=== PATIENT | male | born 1985 | race Caucasian/White ===

== ENCOUNTER 2017-06-02 18:06 | Emergency (ER) | payer SELFPAY ==
[2017-06-02 18:07] VITALS: BP 205/102; PULSE 83; RESP 16; TEMP 36.4; O2SAT 97; BMI 50.2
--- NOTE | 2017-06-02 18:40 | US_ITS ---
STUDY: VENOUS DOPPLER ULTRASOUND - RIGHT LOWER EXTREMITY REASON FOR EXAM: Male, 31 years old. Right-sided foot swelling. TECHNIQUE: Ultrasound evaluation of the deep vein system to include templeton-scale imaging and compression was performed. Templeton-scale imaging and Doppler sonographic evaluation, including duplex spectral analysis and qualitative color flow sonography, was performed. COMPARISON: None. FINDINGS: Common Femoral Vein: Normal compression, spontaneity and augmentation. Normal color Doppler. Common Femoral Vein/Greater Saphenous Junction: Normal compression. Femoral Proximal: Normal compression. Femoral Middle: Normal compression, spontaneity and augmentation. Normal color Doppler. Femoral Distal: Normal compression. Popliteal Vein: Normal compression, spontaneity and augmentation. Normal color Doppler. Posterior Tibial Vein: Normal compression. Peroneal Vein: Not well seen. There is no demonstrated deep venous thrombosis. US/Venous Duplex Imag/Limited/Uni IMPRESSION: No sonographic evidence for deep venous thrombosis of the right common femoral, superficial femoral or popliteal veins. Electronically Signed: Roseann Dorado MD at 19:40 EST , Service support ,
--- NOTE | 2017-06-02 19:36 | ED.DCSUM_ITS ---
- ER Visit Summary Date of Service: 06/02/17 Chief Complaint: Right leg swelling History of Present Illness: The patient is a 31 M who states he has a history of DVT but was later told that maybe it was not a DVT. He is not on blood thinners. States for the past 2 days his right leg is been more swollen. He notes discomfort particularly in the foot. Limited range of motion due to the swelling. No recent surgeries. No recent trips. No recent immobilization. No known clotting disorder or mobilization. No shortness of breath or chest pain. Physical Examination: Afebrile vital signs are stable Gen: Well-nourished well-developed morbidly obese Head: Normocephalic atraumatic Eyes: Perrl EOMI ENT: TMs clear no rhinorrhea moist mucous membranes Neck: Supple no lymphadenopathy no JVD nontender CVS: Regular rate rhythm no murmurs normal S1-S2 Respiratory: No distress clear to auscultation bilaterally chest nontender Abdomen: Soft nontender nondistended normal bowel sounds no masses Back: Nontender Extremity: The right leg is swollen. There is 1+ edema. Toes are pink with excellent capillary refill Skin: Normal color no rash Neuro: alert orientated ?3 CN II-XII intact normal strength sensation reflexes gait cerebellar Psych: Normal affect normal mood Test Results: Duplex ultrasound was negative. Emergency Department Course and Treatment: She will be discharged home with instructions for elevation. A brief course of Lasix. He is to follow-up with his doctor. I recommend he try compression hose. Impression: 1. Right leg lymphedema This note was generated with [employer] dictation software. It may contain incorrect words, spelling, and punctuation that were not noted in review of the chart prior to signing ED Disposition - Plan for ED Patient: Disposition: Home or Assisted Living Chief Complaint: Edema Instructions: ED Lymphedema Prescriptions: Furosemide [Lasix] 40 mg PO DAILY #5 tab Referrals: Misha Cueva MD [Primary Care Provider] - 1 Week
[2017-06-02 19:40] VITALS: BP 160/49; PULSE 70; RESP 22; O2SAT 95
--- NOTE | 2017-06-02 19:44 | ED.RN ---
Verbal and written d/c instructions given. All questions answered.
== END 2017-06-02 19:44 | disposition home or self-care (01) ==
PROVIDERS: Emergency Provider Emergency Medicine; Family Provider Family Medicine; PCP Family Medicine
DX: I89.0 Lymphedema, not elsewhere classified (principal); E66.01 Morbid (severe) obesity due to excess calories
CPT/HCPCS: 93971; 99282

== ENCOUNTER 2017-07-08 20:34 | Emergency (ER) | payer MEDICAID, SELFPAY ==
[2017-07-08 20:35] VITALS: BP 144/83; PULSE 97; RESP 17; TEMP 36.5; O2SAT 97; BMI 51.2
[2017-07-08 22:22] VITALS: O2SAT 98
--- NOTE | 2017-07-08 22:55 | RAD_ITS ---
STUDY: X-RAY CHEST REASON FOR EXAM: Male, 32 years old. Cough TECHNIQUE: Frontal and lateral views of the chest COMPARISON: 05/27/2017 FINDINGS: The lungs are clear. There are no pleural effusions. There is no pneumothorax. The heart is normal in size. The visualized osseous structures are within normal limits. RAD/Chest PA and Lateral IMPRESSION: No acute thoracic pathology. Electronically Signed: Eusebio Burgess, at 23:10 EST Tel , Service support ,
--- NOTE | 2017-07-08 23:00 | ED.VISSUMM ---
- ER Visit Summary Date of Service: 07/08/17 Chief Complaint: Cough History of Present Illness: The patient is a 32 M who presents with a cough since March. Patient states he has a history of asthma needs to take Advair but is no longer taking it. He has been using his albuterol MDI 3-4 times per day. He states when he exerts himself he coughs more. No fevers. He states he has had several ER visits for this he has not yet followed up with his family doctor. He states that he called for an appointment 2 weeks ago and could not get in right away. No sputum production. He did a Z-Darryl and fall of last year which she states helped a little bit. Physical Examination: Afebrile vital signs are stable Gen: Well-nourished well-developed morbidly obese Head: Normocephalic atraumatic Eyes: Perrl EOMI ENT: TMs clear no rhinorrhea moist mucous membranes Neck: Supple no lymphadenopathy no JVD nontender CVS: Regular rate rhythm no murmurs normal S1-S2 Respiratory: No distress bilateral wheezing chest nontender Abdomen: Soft nontender nondistended normal bowel sounds no masses Back: Nontender Extremity: Nontender no edema Skin: Normal color no rash Neuro: alert orientated ?3 CN II-XII intact normal strength sensation reflexes gait cerebellar Psych: Normal affect normal mood Test Results: Chest x-ray shows nothing acute chronic changes noted Emergency Department Course and Treatment: I think the patient most likely has ill treated asthma. I will write the patient for Advair. We will start him on burst dose prednisone at first. He will need to follow-up. I made it very clear that his asthma is not managed correctly most likely due to his medical noncompliance. Impression: 1. Chronic cough 2. Asthma This note was generated with [employer] dictation software. It may contain incorrect words, spelling, and punctuation that were not noted in review of the chart prior to signing ED Disposition - Plan for ED Patient: Disposition: Home or Assisted Living Chief Complaint: Cough Instructions: Understanding Asthma, Discharge Instructions for Asthma Prescriptions: Prednisone [Deltasone] 60 mg PO DAILY #15 tab Fluticasone/Salmeterol [Advair 250-50 Diskus] 1 ea IH BID #1 blst.w.[email or web address] Referrals: Misha Cueva MD [Primary Care Provider] - As soon as possible
== END 2017-07-08 23:40 | disposition home or self-care (01) ==
PROVIDERS: Emergency Provider Emergency Medicine; Family Provider Family Medicine; PCP Family Medicine
DX: R05 Cough (principal); J45.909 Unspecified asthma, uncomplicated; E66.01 Morbid (severe) obesity due to excess calories; Z91.14 Patient's other noncompliance with medication regimen; Z87.01 Personal history of pneumonia (recurrent)
CPT/HCPCS: 71046; 99283

== ENCOUNTER 2017-07-11 13:11 | Emergency (ER) | payer MEDICAID, SELFPAY ==
[2017-07-11 13:11] VITALS: BP 153/100; PULSE 111; RESP 18; TEMP 36.9; O2SAT 97; BMI 51.7
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
[2017-07-11 14:03] VITALS: PULSE 102; RESP 24
[2017-07-11] MEDS: Ipratropium/Albuterol Sulfate 3 ML AMPUL.NEB INHALATION (14:03)
[2017-07-11] MEDS: Cephalexin 250 MG Capsule 500 MG PO (14:10)
[2017-07-11] MEDS: Smz/Tmp Ds Tablet 1 TABLET PO (14:10)
--- NOTE | 2017-07-11 14:30 | ED.DEP ---
ED Disposition - Plan for ED Patient: Disposition: Home or Assisted Living Chief Complaint: General Illness Instructions: ED Infec Skin Cellulitis, ED Reactive Airway Disease Prescriptions: Cephalexin [Keflex] 500 mg PO Q6 #40 cap Smz/Tmp Ds [Bactrim Ds] 1 tab PO BID #20 tab Referrals: Misha Cueva MD [Primary Care Provider] - As soon as possible Additional Instructions: Please continue your asthma medications as you have been directed. Please follow-up with your doctor as soon as possible for another evaluation to discuss your asthma and also your recurrent cellulitis of your right leg. Take the antibiotic as prescribed. Your leg is not improving after 48 hours of antibiotics, or if you have any worsening of your condition and any further concerns, please come back to the emergency department for another evaluation follow-up with your doctor soon as possible.
[2017-07-11 14:41] VITALS: BP 157/84; PULSE 79; RESP 15; O2SAT 98
== END 2017-07-11 14:41 | disposition home or self-care (01) ==
PROVIDERS: Emergency Provider Emergency Medicine; Family Provider Family Medicine; PCP Family Medicine
DX: A46 Erysipelas (principal); J45.909 Unspecified asthma, uncomplicated; E66.9 Obesity, unspecified; Z79.52 Long term (current) use of systemic steroids; Z79.51 Long term (current) use of inhaled steroids
CPT/HCPCS: 94640; 99283

== ENCOUNTER 2018-01-12 15:46 | Emergency (ER) | payer OTHER, SELFPAY ==
[2018-01-12 15:48] VITALS: BP 153/97; PULSE 101; RESP 16; TEMP 37.3; O2SAT 96; BMI 50.7
--- NOTE | 2018-01-12 17:05 | RAD_ITS ---
STUDY: X-RAY CHEST REASON FOR EXAM: Male, 32 years old. Chest pain TECHNIQUE: Single PA view of the chest. COMPARISON: Prior study of 07/08/2017 FINDINGS: The lungs are clear and expanded. There are postsurgical changes of the left lower hemithorax. Left costophrenic angle blunting is present. Normal size heart. Normal mediastinum and cuca. Normal visualized pulmonary arteries. Normal visualized aortic arch and descending thoracic aorta. Normal visualized thoracic spine. There are postsurgical changes or posttraumatic changes of the left sixth rib. There is no demonstrated abnormality of the visualized soft tissue structures of the upper abdomen. RAD/Chest 1 View (Portable) IMPRESSION: Postsurgical changes of the left lower hemithorax. Left costophrenic angle blunting is seen which may represent small effusion or pleural reaction. Posttraumatic or postsurgical changes of the left sixth rib. No acute cardiopulmonary disease process is seen. Chest findings are stable in the interval. Electronically Signed: Floyd Morton MD at 17:22 EDT , Service support ,
--- NOTE | 2018-01-12 17:40 | EKG12_ITS ---
Test Reason : CP Blood Pressure : / mmHG Vent. Rate : 103 BPM Atrial Rate : 103 BPM P-R Int : 146 ms QRS Dur : 090 ms QT Int : 344 ms P-R-T Axes : 059 046 019 degrees QTc Int : 450 ms Sinus tachycardia Otherwise normal ECG Confirmed by GINA RAMSEY, UBALDO ([id number]), material expeditor MANDA REYES ([id number]) on 01/14/2018 1:41:16 PM Referred By: JAMES Confirmed By:UBALDO FUENTES MD
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
[2018-01-12 18:47] LABS: Absolute Lymphocyte Count 2.66 X10^3/ul (0.83-4.51); Absolute Neutrophil Count 8.6 X10^3/uL (2.0-7.7); Basophil# 0.03 X10^3/uL; Basophil% 0.2 % (0-1); Eosinophils% 1.6 % (0-5); Hematocrit 46.7 % (40-54); Hemoglobin 15.4 g/dl (13.0-16.5); Lymphocyte # 2.66 X10^3/ul (4.0); Lymphocyte % 21.8 % (19-41); Mean Corpuscular Hgb 28.8 pg (27.0-32.0); Mean Corpuscular Volume 87.3 fL (80-94); Mean Platelet Vol. 9.5 fl (6.2-12.0); Monocyte# 0.68 X10^3/uL; Monocyte% 5.6 % (0-10); Neutrophil # 8.59 X10^3/uL (2.7-7.7); Neutrophil % 70.6 % (47-70); Platelet Count 272 K/mm3 (150-450); RBC Distribution Width CV 13.6 % (11.6-14.6); RBC Distribution Width SD 42.9 fl (35.1-43.9); Red Blood Count 5.35 M/mm3 (4.6-6.2); White Blood Count 12.2 K/mm3 (4.4-11.0)
[2018-01-12 19:00] LABS: POSITIVE COUNT NO; POSITIVE DIFFERENTIAL NO; POSITIVE MORPHOLOGY NO
[2018-01-12 19:03] LABS: Anion Gap 7 (5-15); BUN 14 mg/dL (7-18); BUN/Creat Ratio 18.6 RATIO (10-20); Calcium,Total 9.2 mg/dL (8.5-10.1); Chloride 104 mmol/L (98-107); Creatinine, Serum 0.75 mg/dL (0.70-1.30); EST Glomerular Filtration Rate 129 mL/min (>60); Est Glom Filt Rate - Afr Amer 156 mL/min (>60); Estimated Creatinine Clearance 153.39 ml/min; Glucose 100 mg/dL (74-106); Potassium 3.9 mmol/L (3.5-5.1); Sodium Level 138 mmol/L (136-145)
[2018-01-12 19:14] LABS: D-Dimer Quantitative (DVT/PE) 0.33 FEU/ug/m (0.27-0.49)
[2018-01-12] MEDS: oxyCODONE 5 MG Tablet PO (19:36)
[2018-01-12 19:38] VITALS: BP 152/96; PULSE 82; RESP 18; O2SAT 97
== END 2018-01-12 19:39 | disposition home or self-care (01) ==
PROVIDERS: Emergency Provider Emergency Medicine; Family Provider Family Medicine; PCP Family Medicine
DX: R07.89 Other chest pain (principal); Z86.711 Personal history of pulmonary embolism; Z79.51 Long term (current) use of inhaled steroids
CPT/HCPCS: 71045; 80048; 84484; 85025; 85379; 93005; 99284; J7030; A4216

== ENCOUNTER 2018-04-30 23:46 | Emergency (ER) | payer OTHER, SELFPAY ==
[2018-04-30 23:47] VITALS: BP 133/79; PULSE 99; RESP 15; TEMP 36.6; O2SAT 95; BMI 51.2
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
[2018-05-01 00:46] VITALS: RESP 16
== END 2018-05-01 00:54 | disposition home or self-care (01) ==
PROVIDERS: Emergency Provider Emergency Medicine; Family Provider Nurse Practitioner Family; PCP Nurse Practitioner Family
DX: J20.9 Acute bronchitis, unspecified (principal); E66.9 Obesity, unspecified; Z86.711 Personal history of pulmonary embolism
CPT/HCPCS: 99282

== ENCOUNTER 2018-05-15 03:29 | Emergency (ER) | payer OTHER, SELFPAY ==
[2018-05-15 03:30] VITALS: BP 148/86; PULSE 79; RESP 18; TEMP 36.6; O2SAT 97; BMI 52.1
--- NOTE | 2018-05-15 04:28 | RAD_ITS ---
STUDY: X-RAY CHEST REASON FOR EXAM: Male, 32 years old. Left-sided chest pain along side of ribs. No known injury. TECHNIQUE: PA and lateral views of the chest. COMPARISON: 01/12/2018. 07/08/2017. 04/17/2017 FINDINGS: Stable surgical clips over the left cardiac contour. There are superimposed monitor leads. There is no demonstrated pneumothorax. The lungs are clear and expanded. The pleural thickening/blunting along the right diaphragm and costophrenic angle. Indistinct contour of the 6 rib with deformity is a stable finding. Normal size heart. Normal mediastinum and cuca. Normal visualized pulmonary arteries. Normal visualized aortic arch and descending thoracic aorta. Normal visualized thoracic spine. Normal visualized ribs, clavicles, and shoulders. There is no demonstrated abnormality of the visualized soft tissue structures of the upper abdomen. RAD/Chest PA and Lateral IMPRESSION: Stable pleural disease in the left base, postsurgical changes and indistinct contour of the left sixth rib since 04/2017. No pulmonary edema, congestive heart failure or confluent pneumonia. Electronically Signed: Shiloh Bentley MD at 5:12 EST , Service support ,
--- NOTE | 2018-05-15 04:29 | ED.DCSUM_ITS ---
- ER Visit Summary Date of Service: 05/15/18 Chief Complaint: [] Left-sided chest pain History of Present Illness: The patient is a 32 M patient stated he recently got over bronchitis. This evening around 9 PM he started having left-sided chest pain. It does not hurt when he is resting but when he moves her twists or takes a deep breath he has pain in his left rib area. It is intermittent. Is a sharp pain. He is never had a costochondritis. No home treatment. He recently finished up azithromycin for his bronchitis. Physical Examination: Vital signs reviewed General: Well-nourished well-developed Head: Normocephalic atraumatic Eyes: Pupils equal round and reactive to light extraocular movements intact ENT: TMs clear no hemotympanum no trauma Neck: Nontender full range of motion Cardiovascular: Regular rate rhythm no murmurs normal S1-S2 Respiratory: No distress clear to auscultation bilaterally chest pain to palpation left lateral mid rib cage. No swelling or deformity. Abdomen: Soft nontender nondistended normal bowel sounds no masses Back: Nontender no CVA tenderness Extremities: Nontender active range of motion ?4 extremities no trauma Skin: Normal color no trauma Neuro alert oriented cranial nerves II through XII intact normal strength sensation reflexes Test Results: [] Emergency Department Course and Treatment: [] Given ibuprofen. Chest x-ray obtained and it is negative. He will continue anti-inflammatories. I think this is costochondritis versus pleurisy related. He will follow-up as an outpatient Treatment Plan: [] Disposition: [] Impression: [] Left-sided costochondritis rib pain This note was generated with [employer] dictation software. It may contain incorrect words, spelling, and punctuation that were not noted in review of the chart prior to signing ED Disposition - Plan for ED Patient: Chief Complaint: Chest Other Referrals: Angela Valdes NP-C [Primary Care Provider] -
[2018-05-15] MEDS: Ibuprofen 400 MG Tablet 800 MG PO (04:30)
--- NOTE | 2018-05-15 05:16 | ED.DEP ---
ED Disposition - Plan for ED Patient: Disposition: Home or Assisted Living Chief Complaint: Chest Other Instructions: ED Chest Pain Costochondritis Referrals: Angela Valdes NP-C [Primary Care Provider] -
[2018-05-15 05:23] VITALS: BP 142/69; PULSE 72; RESP 18; O2SAT 96
== END 2018-05-15 05:24 | disposition home or self-care (01) ==
PROVIDERS: Emergency Provider Emergency Medicine; Family Provider Nurse Practitioner Family; PCP Nurse Practitioner Family
DX: M94.0 Chondrocostal junction syndrome [Tietze] (principal); E66.9 Obesity, unspecified; J45.909 Unspecified asthma, uncomplicated; Z79.51 Long term (current) use of inhaled steroids
CPT/HCPCS: 71046; 99283

== ENCOUNTER 2018-06-23 22:41 | Emergency (ER) | payer OTHER, SELFPAY ==
[2018-06-23 22:43] VITALS: BP 166/95; PULSE 97; RESP 26; TEMP 36.3; O2SAT 98; BMI 52.0
--- NOTE | 2018-06-23 23:25 | ED.DCSUM_ITS ---
- ER Visit Summary Date of Service: 06/23/18 Chief Complaint: Chronic cough History of Present Illness: The patient is a 33 M history of asthma patient is a non-smoker. States she has had a chronic cough for the last month. He was seen in the ER written for a Z-Darryl but he thought he was getting better so he never took it. He said the cough is back and now at times he has yellowish to green sputum. Denies any fever. No chest pain. He denies any hemoptysis. No history of DVT or PE. Also states that he has laryngitis. Physical Examination: Well-appearing young male. Vital signs are stable. He is afebrile. His pulse ox is 90% on room air no signs of hypoxia. No distress. HEENT exam posterior pharynx normal. No erythema or exudate. No trouble breathing or swallowing. No stridor or drooling. Neck nontender no lymphadenopathy. Trachea midline and nontender. Lungs dry cough. Limited expiratory few scattered wheezes. No rales or rhonchi. Equal symmetrical. Heart regular rate and rhythm no murmur. Abdomen is soft and nontender. Normal bowel sounds no peritoneal signs. Obese. He is moving all 4 extremities. Neurovascular intact. Calves are nontender without edema. Neurologically is awake and alert with no focal motor deficits. Test Results: None. Discussed with patient I did not think that he needed a chest x-ray I do not hear any signs of pneumonia and he is comfortable with that not being done. Emergency Department Course and Treatment: Patient stated that he got a Dulera inhaler in the past from [facility]. I asked her respiratory therapist and they do not hand those type of inhalers out. I also discussed with the patient option of oral steroids and he states is never really helped him in the past. Treatment Plan: Zithromax Z-Darryl. Inhaler. Disposition: Discharge Impression: Asthmatic bronchitis This note was generated with [employer] dictation software. It may contain incorrect words, spelling, and punctuation that were not noted in review of the chart prior to signing ED Disposition - Plan for ED Patient: Referrals: Angela Valdes NP-C [Primary Care Provider] -
--- NOTE | 2018-06-23 23:25 | ED.DEP ---
ED Disposition - Plan for ED Patient: Disposition: Home or Assisted Living Instructions: ED Bronchitis Asthmatic Prescriptions: Azithromycin [Zithromax Z-Jania] 250 mg PO UD #1 box Mometasone/Formoterol [Dulera 100 Mcg/5 Mcg Inhaler] 0 gm INHALATION 4X/DAY #1 [email or web address] Referrals: Angela Valdes NP-C [Primary Care Provider] - 3-5 Days if not improving Additional Instructions: Inhaler use as needed. Zithromax Z-JANIA Follow-up with your doctor if not improving.
== END 2018-06-23 23:47 | disposition home or self-care (01) ==
PROVIDERS: Emergency Provider Emergency Medicine; Family Provider Nurse Practitioner Family; PCP Nurse Practitioner Family
DX: J45.909 Unspecified asthma, uncomplicated (principal)
CPT/HCPCS: 99282

== ENCOUNTER 2018-07-02 23:09 | Emergency (ER) | payer OTHER, SELFPAY ==
[2018-07-02 23:11] VITALS: BP 156/93; PULSE 95; RESP 20; TEMP 36.7; O2SAT 95; BMI 52.0
--- NOTE | 2018-07-02 23:50 | RAD_ITS ---
HISTORY: COUGH X 1 MONTH, NOW HAVING RIB PAIN. LOST VOICE X 2 WEEKS EXAM: XR Chest 2 Views: COMPARISON: None FINDINGS: # of images incl. paperwork: 2 LINES/DEVICES: None. LUNGS: No acute interval change. Persistent scarring and atelectasis in the left lung base. No apparent pneumothorax or pleural effusion. MEDIASTINUM AND CARDIOVASCULAR STRUCTURES: Cardiac silhouette not enlarged. Central airways and mediastinal contour are unremarkable. BONES AND SOFT TISSUES: Chronic deformity left sixth rib unchanged. RAD/Chest PA and Lateral IMPRESSION: No radiographic evidence of acute cardiopulmonary disease. at 0022 Reported and signed by: Floyd Lacey MD Electronically Signed: Floyd Lacey, at 0:21 EST Tel , Service support ,
--- NOTE | 2018-07-02 23:50 | ED.VISSUMM ---
- ER Visit Summary Date of Service: 07/02/18 Chief Complaint: [] Cough History of Present Illness: The patient is a 33 M with cough for the last month and a half. Gradual onset intermittent. Current severity is mild. Hurts to cough with pain in his left ribs with coughing fits. He stated these had a chronic cough for a long period of time. He lost his voice a week ago. No home treatment. Stated cough medicines do not work including Mucinex Tessalon Perles liquid honey Robitussin. He was seen on the of this month and given a Z-Darryl. He did not get relief with that. Physical Examination: [] Vital signs reviewed General: Well-nourished well-developed Head: Normocephalic atraumatic Eyes: Pupils equal round and reactive to light extraocular movements intact ENT: TMs clear no hemotympanum no trauma Neck: Nontender full range of motion Cardiovascular: Regular rate rhythm no murmurs normal S1-S2 Respiratory: No distress clear to auscultation bilaterally chest nontender Abdomen: Soft nontender nondistended normal bowel sounds no masses Back: Nontender no CVA tenderness Extremities: Nontender active range of motion ?4 extremities no trauma Skin: Normal color no trauma Neuro alert oriented cranial nerves II through XII intact normal strength sensation reflexes Test Results: [] Emergency Department Course and Treatment: [] Patient given ibuprofen for his sore ribs. Chest x-ray obtained. Negative. At this time I think the patient likely just has a viral cough and laryngitis. He probably has an intercostal muscle strain from coughing. Instructed to use [id number]. Treatment Plan: [] Disposition: [] Impression: [] Cough-chronic This note was generated with [employer] software. It may contain incorrect words, spelling, and punctuation that were not noted in review of the chart prior to signing ED Disposition - Plan for ED Patient: Referrals: Angela Valdes NP-C [Primary Care Provider] -
[2018-07-03] MEDS: Ibuprofen 600 MG Tablet PO (00:11)
--- NOTE | 2018-07-03 00:29 | ED.DEP ---
ED Disposition - Plan for ED Patient: Disposition: Home or Assisted Living Instructions: ED URI Viral Referrals: Angela Valdes NP-C [Primary Care Provider] -
== END 2018-07-03 00:43 | disposition home or self-care (01) ==
PROVIDERS: Emergency Provider Emergency Medicine; Family Provider Nurse Practitioner Family; PCP Nurse Practitioner Family
DX: R05 Cough (principal)
CPT/HCPCS: 71046; 99283

== ENCOUNTER 2018-11-14 06:32 | Emergency (ER) | payer OTHER, SELFPAY ==
[2018-11-14 06:33] VITALS: BP 148/106; PULSE 82; RESP 18; TEMP 36.5; O2SAT 97; BMI 53.3
--- NOTE | 2018-11-14 07:08 | VDLE_ITS ---
Reason For Study: Swelling RIGHT LEFT GSV is normal. CFV is compressible, spontaneous, phasic, CFV is compressible, spontaneous, phasic, competent, and demonstrates normal competent and demonstrates normal augmentation. augmentation. FV is compressible, spontaneous, phasic, competent and demonstrates normal augmentation. T/P Trunk is compressible. PTV is compressible. RT PerV is compressible. Rt PopV is partially compressible with bright intraluminal echoes consistent with chronic DVT. Procedure Exam performed portable in ED. A preliminary report was called and/or faxed to Dr. Burton. Interpretation Summary Partially compressible right popliteal vein with bright intraluminal echoes consistent with chronic DVT. No evidence for acute deep venous thrombosis right lower extremity. Patent and compressible right great saphenous vein Patent and compressible left common femoral vein Ordering Physician: Mata Burton Referring Physician: Angela Valdes Performed By: Joan Li, JEROME, RVT
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
[2018-11-14 10:05] VITALS: PULSE 80; RESP 16
== END 2018-11-14 10:06 | disposition home or self-care (01) ==
PROVIDERS: Emergency Provider Emergency Medicine; Family Provider Nurse Practitioner Family; PCP Nurse Practitioner Family
DX: R60.0 Localized edema (principal); E66.9 Obesity, unspecified
CPT/HCPCS: 93971; 99282

== ENCOUNTER 2019-02-07 23:02 | Emergency (ER) | payer OTHER, SELFPAY ==
[2019-02-07 23:03] VITALS: BP 135/82; PULSE 87; RESP 15; TEMP 36.9; O2SAT 99; BMI 50.2
--- NOTE | 2019-02-07 23:24 | ED.VISSUMM ---
- ER Visit Summary Date of Service: 02/07/19 Chief Complaint: Right ankle pain and swelling History of Present Illness: The patient is a 33 M who presents with right ankle pain and swelling that began today. Patient states the pain is gradually gotten worse throughout the day. Patient denies any trauma or injury. Patient states the pain is been constant. Patient describes the pain as a tingling sensation. Patient states nothing makes the pain better or worse. Patient does admit to some tingling but denies any weakness or other paresthesias. Patient is concerned over possible blood clot. Patient states he has had a history of blood clots in the past but is not currently on any anticoagulant medications. Physical Examination: Vital signs are stable. Patient is afebrile. Patient is in no acute distress. Oral mucosa is pink and moist. Neck is supple. Trachea is midline. There is no JVD noted. Musculoskeletal exam reveals tenderness over the right ankle. There is trace edema. There is slight calf tenderness. There is no tenderness in the popliteal area or thigh. Pedal pulses are equal bilaterally. Sensation was intact to light touch in all digits. Capillary refill is less than 2 seconds in all digits. Test Results: Due to the patient is concerned over possible DVT, PT with INR and d-dimer were obtained and were normal. X-rays of the right ankle were ordered but the patient refused. Emergency Department Course and Treatment: Patient was advised of his lab results. Patient was instructed to keep the right ankle elevated. Patient was instructed to follow-up with his primary care physician in 3 to 5 days. Patient understood and was agreeable with the plan. All questions were answered. Disposition: Discharge home Impression: 1. Right ankle pain This note was generated with [employer] dictation software. It may contain incorrect words, spelling, and punctuation that were not noted in review of the chart prior to signing ED Disposition - Plan for ED Patient: Disposition: Home or Assisted Living Diagnosis: Right ankle pain Instructions: Arthralgia Referrals: Angela Valdes NP-C [Primary Care Provider] - 5-7 Days
[2019-02-07 23:48] LABS: International Normalized Ratio 1.1; Prothrombin Time (Protime)PT. 13.5 SECONDS (11.7-14.9)
[2019-02-07 23:52] LABS: D-Dimer Quantitative (DVT/PE) 0.45 FEU/ug/m (0.27-0.49)
[2019-02-08 00:55] VITALS: RESP 16
[2019-02-08 01:17] VITALS: BP 130/80; PULSE 78; RESP 16; O2SAT 98
== END 2019-02-08 00:55 | disposition home or self-care (01) ==
LOC: ED 23:36
PROVIDERS: Emergency Provider Emergency Medicine; Family Provider Nurse Practitioner Family; PCP Nurse Practitioner Family
DX: M25.571 Pain in right ankle and joints of right foot (principal); Z86.718 Personal history of other venous thrombosis and embolism
CPT/HCPCS: 36415; 85379; 85610; 99283

== ENCOUNTER 2019-02-18 11:03 | Emergency (ER) | payer OTHER, SELFPAY ==
[2019-02-18 11:04] VITALS: BP 209/92; PULSE 101; RESP 20; TEMP 36.7; O2SAT 93; BMI 52.8
--- NOTE | 2019-02-18 11:20 | CT_ITS ---
STUDY: CT ABDOMEN AND PELVIS WITHOUT CONTRAST REASON FOR EXAM: Male, 33 years old. Right sided abdomen pain, hematuria. Hx stones.. RADIATION DOSAGE (If Supplied By Facility): CTDIvol = ( 34.45 ) mGy, DLP = ( 1936.81 ) mGycm TECHNIQUE: Transaxial images were obtained from the dome of the diaphragm to the symphysis pubis without oral contrast, and without intravenous contrast. Sagittal and coronal images were reconstructed. Individualized dose optimization techniques were used for this CT. COMPARISON: November 10, 2013 FINDINGS: There is a left lung base consolidation/atelectasis. Left lung consolidation There is liver enlargement with decreased attenuation of the liver consistent with steatosis. Normal gallbladder and extrahepatic biliary system. There is mild enlargement of the spleen at 13 cm. Normal pancreas. Normal bilateral adrenal glands. Normal right kidney. Again noted is a 2 cm left kidney cyst. Normal visualized stomach. Normal small intestine. Normal colon. The appendix is visualized and appears normal. Normal abdominal aorta. Normal inferior vena cava. Normal retroperitoneum. Normal urinary bladder. Normal abdominal wall. There are diffuse degenerative changes of the visualized lumbar spine. CT/Abdomen/Pelvis without Cont IMPRESSION: Left lung consolidation/atelectasis. Further evaluation with CT of the chest is recommended. Hepatosplenomegaly. Electronically Signed: Dmitriy Whitfield MD at 13:05 EDT Tel , Service support ,
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
[2019-02-18 11:36] LABS: Bacteria 0 SEEN /hpf (None Seen); Mucous, Urine 0 SEEN /hpf (<or=2+); Squamous Epithelial Cells - UA 0 SEEN /hpf (0-5); White Blood Cells 0 SEEN /hpf (0-5)
[2019-02-18 11:41] LABS: Color, Urine Brown (Yellow); Glucose, Dipstick Normal (Normal); Ketone-Dipstick 5 mg/dl (Negative); Leukocyte Esterase-Dipstick 25 /ul (Negative); Nitrite-Dipstick Negative (Negative); Occult Blood-Urine 250 /ul (Negative); Protein-Dipstick 100 mg/dl (Negative); Specific Gravity, Urine 1.025 (1.002-1.030); Urine Bilirubin Dipstick Negative (Negative); Urine Clarity Turbid (Clear); Urine Urobilinogen Normal (Normal); Urine pH 6.5 (5.0 - 8.0)
[2019-02-18] MEDS: Ketorolac 30 MG/ML Syringe 15 MG IV (11:41)
[2019-02-18] MEDS: 0.9% Normal Saline 1,000 ML 250 ML IV (11:41)
[2019-02-18] MEDS: Ondansetron 4 MG/2 ML Vial IV (11:41)
[2019-02-18 11:42] LABS: Absolute Lymphocyte Count 2.43 X10^3/uL (0.83-4.51); Absolute Neutrophil Count 7.3 X10^3/uL (2.0-7.7); Basophil# 0.08 X10^3/uL; Basophil% 0.8 % (0-1); Eosinophil# 0.21 X10^3/uL; Hematocrit 50.7 % (40-54); Hemoglobin 16.4 g/dL (13.0-16.5); Lymphocyte # 2.43 X10^3/ul (4.0); Lymphocyte % 22.9 % (19-41); Mean Corp Hgb Conc 32.3 g/dL (32-36); Mean Corpuscular Hgb 28.6 pg (27.0-32.0); Mean Corpuscular Volume 88.3 fL (80-94); Mean Platelet Vol. 9.1 fl (6.2-12.0); Monocyte# 0.54 X10^3/uL; Monocyte% 5.1 % (0-10); NRBC Flagged by Analyzer 0 % (0-5); Neutrophil # 7.34 X10^3/uL (2.7-7.7); Neutrophil % 68.9 % (47-70); Platelet Count 314 K/mm3 (150-450); RBC Distribution Width CV 13.2 % (11.6-14.6); RBC Distribution Width SD 42.6 fl (35.1-43.9); Red Blood Count 5.74 M/mm3 (4.6-6.2); White Blood Count 10.6 K/mm3 (4.4-11.0)
[2019-02-18 11:50] LABS: Red Blood Cells-Urine > 100 SEEN /hpf (0-5)
[2019-02-18 11:51] LABS: Amorphous Sediment 4+
[2019-02-18 11:55] LABS: Anion Gap 6 (5-15); BUN 16 mg/dL (7-18); BUN/Creat Ratio 17.3 RATIO (10-20); Calcium,Total 9.4 mg/dL (8.5-10.1); Chloride 104 mmol/L (98-107); Creatinine, Serum 0.92 mg/dL (0.70-1.30); EST Glomerular Filtration Rate 101 mL/min (>60); Est Glom Filt Rate - Afr Amer 122 mL/min (>60); Estimated Creatinine Clearance 123.91 ml/min; Glucose 126 mg/dL (74-106); Potassium 3.8 mmol/L (3.5-5.1); Sodium Level 139 mmol/L (136-145)
[2019-02-18 13:03] VITALS: BP 152/90; PULSE 91; RESP 18; O2SAT 99
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
[2019-02-18 15:11] VITALS: BP 163/81; PULSE 83; RESP 16; O2SAT 95
== END 2019-02-18 15:11 | disposition home or self-care (01) ==
PROVIDERS: Emergency Provider Emergency Medicine; Family Provider Nurse Practitioner Family; PCP Nurse Practitioner Family
DX: R31.0 Gross hematuria (principal); N28.1 Cyst of kidney, acquired; R91.8 Other nonspecific abnormal finding of lung field; J45.909 Unspecified asthma, uncomplicated; E66.01 Morbid (severe) obesity due to excess calories; Z68.41 Body mass index [BMI] 40.0-44.9, adult; Z86.711 Personal history of pulmonary embolism
CPT/HCPCS: 71260; 74176; 80048; 81001; 85025; 96361; 96374; 96375; 99283; J7030; Q9967; A4216; J2405

== ENCOUNTER 2019-02-19 05:07 | Emergency (ER) | payer OTHER, SELFPAY ==
[2019-02-18 11:04] VITALS: BMI 52.8
[2019-02-19 05:08] VITALS: BP 162/83; PULSE 90; RESP 18; TEMP 36.5; O2SAT 97; BMI 53.4
[2019-02-19] MEDS: Ketorolac 30 MG/ML Syringe IV (05:25)
--- NOTE | 2019-02-19 05:39 | ED.DCSUM_ITS ---
- ER Visit Summary Date of Service: 02/19/19 Chief Complaint: Abdominal pain History of Present Illness: The patient is a 33 M who presents the emergency department continued right lower abdominal pain. Patient states that he was seen yesterday beginning around 11:30 in the morning. He came to the emergency department noting hematuria in the abdominal pain. His CT of his abdomen pelvis that demonstrated a left renal cyst 2 cm but no stone and a normal appendix. I there was concern raised about a potential pulmonary issue and a CT of the chest was ordered which showed scarring. Patient states that he was in the impression that he had a kidney stone. He states he was discharged without any pain medication (discharge note does explain nonprescription pain treatment options). 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 He notes he had some loose bowel movement but did have some continued blood in the urine. He notes the pain in the right lower quadrant was better at the start of his shift and seems worse. He has noted about a month ago he had had dysuria but it resolved. He notes that he has to urinate very frequently at work 6-8 times a shift. Tells me that he holds his urine as long as possible to keep working. He tells me he has a working diagnosis of prediabetes. Physical Examination: Afebrile vital signs are stable Gen: Well-nourished well-developed morbid obesity Head: Normocephalic atraumatic Eyes: Perrl EOMI ENT: TMs clear no rhinorrhea moist mucous membranes Neck: Supple no lymphadenopathy no JVD nontender CVS: Regular rate rhythm no murmurs normal S1-S2 Respiratory: No distress clear to auscultation bilaterally chest nontender Abdomen: Soft tender palpation just inferiorly to his pannus line no guarding or rebound r nondistended normal bowel sounds no masses Back: Nontender Extremity: Nontender no edema Skin: Normal color no rash Neuro: alert orientated ?3 CN II-XII intact normal strength Psych: Normal affect normal mood Test Results: White count 10.9 (yesterday was was 10.6) blood sugar 143. Urinalysis positive leukocyte esterase positive nitrates some bacteria some bright blood cells. Emergency Department Course and Treatment: Urine will be sent for culture. I gave the patient a dose of Toradol is more comfortable. On Tessy put him on Cipro. I also ordered hemoglobin A1c that I will have him speak to his doctor about as I do not have the results back now. Return if worsening or concerns Impression: 1. Acute urinary tract infection 2. Elevated blood sugar This note was generated with [employer] dictation software. It may contain incorrect words, spelling, and punctuation that were not noted in review of the chart prior to signing ED Disposition - Plan for ED Patient: Disposition: Home or Assisted Living Instructions: Understanding Urinary Tract Infections (UTIs) Prescriptions: Ciprofloxacin [Cipro] 500 mg PO BID #14 tab Prescription Printed Hydrocodone Bitart/Apap 5-325 [[place] 5MG-325MG] 1 tab PO Q6H PRN PRN 3 Days #10 tab PRN Reason: Pain Prescription Printed Referrals: Angela Valdes NP-C [Primary Care Provider] - 3-5 Days if not improving
[2019-02-19 05:52] LABS: Squamous Epithelial Cells - UA 0 SEEN /hpf (0-5)
[2019-02-19 05:53] LABS: Absolute Lymphocyte Count 2.17 X10^3/uL (0.83-4.51); Absolute Neutrophil Count 7.8 X10^3/uL (2.0-7.7); Basophil# 0.05 X10^3/uL; Basophil% 0.5 % (0-1); Eosinophil# 0.22 X10^3/uL; Hematocrit 45.3 % (40-54); Hemoglobin 14.9 g/dL (13.0-16.5); Lymphocyte # 2.17 X10^3/ul (4.0); Lymphocyte % 19.9 % (19-41); Mean Corp Hgb Conc 32.9 g/dL (32-36); Mean Corpuscular Hgb 28.7 pg (27.0-32.0); Mean Corpuscular Volume 87.1 fL (80-94); Mean Platelet Vol. 9.2 fl (6.2-12.0); Monocyte# 0.63 X10^3/uL; Monocyte% 5.8 % (0-10); NRBC Flagged by Analyzer 0 % (0-5); Neutrophil # 7.79 X10^3/uL (2.7-7.7); Neutrophil % 71.4 % (47-70); Platelet Count 279 K/mm3 (150-450); RBC Distribution Width CV 13.1 % (11.6-14.6); RBC Distribution Width SD 41.4 fl (35.1-43.9); White Blood Count 10.9 K/mm3 (4.4-11.0)
[2019-02-19 06:01] LABS: Color, Urine Brown (Yellow); Glucose, Dipstick Normal (Normal); Ketone-Dipstick 5 mg/dl (Negative); Leukocyte Esterase-Dipstick 100 /ul (Negative); Nitrite-Dipstick Positive (Negative); Occult Blood-Urine 250 /ul (Negative); Protein-Dipstick 100 mg/dl (Negative); Urine Clarity Turbid (Clear); Urine Urobilinogen 1 mg/dl (Normal)
[2019-02-19 06:02] LABS: Urine Bilirubin Dipstick 1 mg/dL (Negative)
[2019-02-19 06:07] LABS: AST(SGOT) 25 U/L (15-37); Alanine Aminotransfer ALT/SGPT 51 U/L (16-61); Albumin, Serum 3.4 g/dL (3.2-5.0); Alkaline Phosphatase 77 U/L (45-117); Anion Gap 7 (5-15); BUN 20 mg/dL (7-18); BUN/Creat Ratio 23.1 RATIO (10-20); Calcium,Total 8.7 mg/dL (8.5-10.1); Chloride 105 mmol/L (98-107); Creatinine, Serum 0.87 mg/dL (0.70-1.30); EST Glomerular Filtration Rate 109 mL/min (>60); Est Glom Filt Rate - Afr Amer 132 mL/min (>60); Estimated Creatinine Clearance 131.03 ml/min; Globulin 3.5 g/dL (2.2-4.2); Glucose 143 mg/dL (74-106); Potassium 3.8 mmol/L (3.5-5.1); Protein, Total 6.9 g/dL (6.4-8.2); Sodium Level 138 mmol/L (136-145)
[2019-02-19 06:15] LABS: Amorphous Sediment 3+; Red Blood Cells-Urine 5-10 SEEN /hpf (0-5)
[2019-02-19 06:16] LABS: Bacteria RARE /hpf (None Seen); Mucous, Urine 1+ /hpf (<or=2+); White Blood Cells 0-5 SEEN /hpf (0-5)
[2019-02-19 06:49] VITALS: PULSE 85; TEMP -8.8; TEMP 16
[2019-02-19] MEDS: Ciprofloxacin 500 MG Tablet PO (06:49)
[2019-02-19 08:14] LABS: Hemoglobin A1c 5.9 % (4.2-6.3)
== END 2019-02-19 06:52 | disposition home or self-care (01) ==
PROVIDERS: Emergency Provider Emergency Medicine; Family Provider Nurse Practitioner Family; PCP Nurse Practitioner Family
DX: N39.0 Urinary tract infection, site not specified (principal); R73.9 Hyperglycemia, unspecified; E66.01 Morbid (severe) obesity due to excess calories; J45.909 Unspecified asthma, uncomplicated; Z86.711 Personal history of pulmonary embolism
CPT/HCPCS: 80053; 81001; 83036; 85025; 87077; 87086; 87088; 96374; 99284; A4216

== ENCOUNTER 2019-04-19 10:44 | Emergency (ER) | payer OTHER, SELFPAY ==
[2019-04-19 10:46] VITALS: BP 143/79; PULSE 97; RESP 17; TEMP 36.9; O2SAT 98; BMI 53.2
--- NOTE | 2019-04-19 11:20 | RAD_ITS ---
STUDY: X-RAY CHEST REASON FOR EXAM: Male, 33 years old. 4 day history of cough and chest congestion. TECHNIQUE: PA and lateral views of the chest. COMPARISON: Comparison is made with prior study dated July 02, 2018. FINDINGS: Metallic sutures are seen overlying the left lung base. Stable pleural parenchymal changes at the left lung base. The right lung is clear. There is no demonstrated pleural abnormality. Normal size heart. Normal mediastinum and cuca. Normal visualized pulmonary arteries. Normal visualized aortic arch and descending thoracic aorta. Normal visualized thoracic spine. Normal visualized ribs, clavicles, and shoulders. There is no demonstrated abnormality of the visualized soft tissue structures of the upper abdomen. RAD/Chest PA and Lateral IMPRESSION: Stable pleural parenchymal changes at the left lung base. Electronically Signed: Shun Perez, at 11:39 EST , Service support ,
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
== END 2019-04-19 12:18 | disposition home or self-care (01) ==
LOC: ED 12:09
PROVIDERS: Emergency Provider Emergency Medicine; Family Provider Nurse Practitioner Family; PCP Nurse Practitioner Family
DX: J06.9 Acute upper respiratory infection, unspecified (principal)
CPT/HCPCS: 71046; 99282

== ENCOUNTER 2019-07-20 03:04 | Emergency (ER) | payer OTHER, SELFPAY ==
[2019-07-20 03:05] VITALS: BP 158/102; PULSE 123; RESP 18; TEMP 37.3; O2SAT 97; BMI 52.2
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
[2019-07-20] MEDS: Ketorolac 60 MG/2 ML Vial IM (03:19)
[2019-07-20 03:52] VITALS: BP 146/98; PULSE 104; RESP 20; O2SAT 96
[2019-07-20] MEDS: dexAMETHasone 10 MG/ML Vial PO.IVFORM (03:53)
[2019-07-20 03:55] VITALS: BP 146/98; PULSE 104; RESP 20; TEMP 37.3; O2SAT 96
--- NOTE | 2019-07-21 11:27 | ED.RN ---
PATIENT MADE AWARE OF GAS CULTURE. AZITHROMYCIN 500 MG DAILY X5 DAYS CALLED INTO [facility]
== END 2019-07-20 03:55 | disposition home or self-care (01) ==
PROVIDERS: Emergency Provider Emergency Medicine; PCP Nurse Practitioner Family
DX: J03.90 Acute tonsillitis, unspecified (principal); J45.909 Unspecified asthma, uncomplicated; E66.01 Morbid (severe) obesity due to excess calories; Z68.41 Body mass index [BMI] 40.0-44.9, adult
CPT/HCPCS: 87077; 87880; 96372; 99284

== ENCOUNTER → 2020-08-19 14:05 | Outpatient (CLI) | payer SELFPAY ==
[2020-08-19 12:55] VITALS: BMI 53.9
== END ==
PROVIDERS: PCP Nurse Practitioner Family; Referring Provider Nurse Practitioner Family; Visit Provider Nurse Practitioner Family
DX: Z11.52 Encounter for screening for COVID-19 (principal)
CPT/HCPCS: 87635; U0002

== ENCOUNTER 2020-09-28 11:52 | Emergency (ER) | payer OTHER, SELFPAY ==
[2020-09-08 10:06] VITALS: BMI 53.9
[2020-09-28 11:53] VITALS: BP 144/80; PULSE 106; RESP 15; TEMP 36.4; O2SAT 96; BMI 54.3
--- NOTE | 2020-09-28 12:52 | EX.ED.DYSGE1 ---
HPI History of Present Illness Chief Complaint: Lower Extremity Injury Narrative Narrative: 35-year-old male presenting with left foot pain. He states that on the dorsum and lateral aspect of his foot. He denies any trauma. He states that it is worse after using it at work. He has been new work boots which initially helped the pain and now is having more pain. He has been taking Aleve which does seem to work for his pain. He denies numbness or tingling. PFSH PFSH Medical History Asthma Home Medications naproxen [Naprosyn] 500 mg PO BID PRN #30 tab 09/28/20 [Rx Last Taken Unknown] Allergy/AdvReac Type Severity Reaction Status Date / Time hydrocodone [From [place]] AdvReac Upset Verified 09/28/20 11:54 Stomach Family History Other Diabetes Obesity Social History Smoking Status: Never smoker Smokeless tobacco user: chewing tobacco ROS ROS ED Constitutional Constitutional ED: Denies chills, fever(s) or sweats Eyes Eyes: Denies blurry vision or change in vision ENT ENT ED: Denies ear pain, rhinorrhea or sore throat Cardiovascular Cardiovascular: Denies chest pain, palpitations or racing heartbeat Respiratory/Chest Respiratory/Chest: Denies cough, dyspnea or sputum Gastrointestinal Gastrointestinal: Denies abdominal pain, constipation, diarrhea or vomiting Genitourinary Genitourinary ED: Denies dysuria, hematuria or urinary frequency Musculoskeletal Musculoskeletal: Reports other Details: Left foot pain ; Denies arthralgias, myalgias or neck pain Integumentary Denies abscess, Abrasions or rash Neurologic Neurologic: Denies headache(s), paresthesias or weakness Psychiatric Psychiatric: Denies anxiety, depression, suicidal ideation or suicidal thoughts Endocrine Endocrinology: Denies polydipsia or polyuria EXAM Physical Exam Const Vital Signs: 09/28/20 11:53 Temperature 97.5 F L Temperature Source Temporal Pulse Rate 106 H Respiratory Rate 15 Blood Pressure 144/80 H Blood Pressure Mean 101 Pulse Ox 96 Oxygen Delivery Method Room Air Positive well nourished General Appearance ED: NAD HEENT Negative for trauma or tenderness Eyes PERRL and EOMs intact bilaterally Resp normal respiratory effort and clear to auscultation bilaterally Cardio regular rate and regular rhythm Extremity Extremity Narrative: Mild tenderness to palpation to the dorsal lateral aspect of the left foot. There is no deformity. DP/PT +2/4. Strength and motor sensation intact. No bony tenderness. Neuro oriented x3 Sensorium / Orientation: alert Psych mental status grossly normal Skin no rashes or lesions noted and no wounds MDM MDM MDM Narrative Medical decision making narrative: Patient presenting with left foot pain which is nontraumatic. He does have some mild tenderness to the lateral aspect of his foot. He was offered x-ray however he does not believe his foot is broken. Clinically I do not believe he needs an x-ray. Patient will be given a prescription prescription for Naprosyn and follow-up with podiatry. He is amenable to this plan. He is can return precautions. Impression: 1. Left foot tendinitis Discharge Plan Triage Chief Complaint: Lower Extremity Injury ED Provider: Chun Jimenes Dx/Rx/DC Orders Instructions: Treating Tendonitis of the Foot Prescriptions: New naproxen [Naprosyn] 500 mg tablet 500 mg PO BID PRN (Reason: pain) Qty: 30 RF: 0 Stand Alone Forms: ED Work / School Excuse Primary Care Provider: Care Physician,No Primary Referrals: Kya Qureshi DPM [STAFF PHYSICIAN] - Care Physician,No Primary [Primary Care Provider] - Disposition Disposition: Home, self care Discharge Date/Time: 09/28/20 13:09
== END 2020-09-28 13:09 | disposition home or self-care (01) ==
PROVIDERS: Emergency Provider Student in an Organized Health Care Education/Training Program
DX: M77.52 Other enthesopathy of left foot and ankle (principal)
CPT/HCPCS: 99282

== ENCOUNTER 2020-11-19 18:42 | Emergency (ER) | payer OTHER, SELFPAY ==
[2020-11-19 18:43] VITALS: BP 159/99; PULSE 96; RESP 18; TEMP 36; O2SAT 98; BMI 54.9
[2020-11-19 20:01] LABS: Absolute Lymphocyte Count 2.42 X10^3/uL (0.83-4.51); Absolute Neutrophil Count 9.6 X10^3/uL (2.0-7.7); Basophil# 0.06 X10^3/uL; Basophil% 0.4 % (0-1); Eosinophils% 1.5 % (0-5); Hematocrit 47.1 % (40-54); Hemoglobin 15.1 g/dL (13.0-16.5); Lymphocyte # 2.42 X10^3/ul (0.83-4.51); Mean Corp Hgb Conc 32.1 g/dL (32-36); Mean Corpuscular Hgb 28.5 pg (27.0-32.0); Mean Corpuscular Volume 88.9 fL (80-94); Monocyte# 1.17 X10^3/uL; Monocyte% 8.7 % (0-10); NRBC Flagged by Analyzer 0 % (0-5); Neutrophil # 9.56 X10^3/uL (2.7-7.7); Platelet Count 320 K/mm3 (150-450); RBC Distribution Width CV 14.1 % (11.6-14.6); RBC Distribution Width SD 45.3 fl (35.1-43.9); White Blood Count 13.5 K/mm3 (4.4-11.0)
[2020-11-19 20:26] LABS: Anion Gap 5 (5-15); BUN 11 mg/dL (7-18); BUN/Creat Ratio 12.1 RATIO (10-20); Calcium,Total 8.8 mg/dL (8.5-10.1); Chloride 104 mmol/L (98-107); Creatinine, Serum 0.91 mg/dL (0.70-1.30); EST Glomerular Filtration Rate 102 mL/min (>60); Est Glom Filt Rate - Afr Amer 124 mL/min (>60); Estimated Creatinine Clearance 122.97 ml/min; Glucose 111 mg/dL (74-106); Potassium 3.8 mmol/L (3.5-5.1); Sodium Level 139 mmol/L (136-145)
[2020-11-19 20:30] LABS: Lactic Acid 1.5 mmol/L (0.4-1.9)
--- NOTE | 2020-11-19 22:23 | EDS_ITS ---
HPI History of Present Illness Chief Complaint: Cellulitis Informant: patient Onset/Context/Timing Current Severity: Moderate Narrative Narrative: Patient presents with cellulitis. He states over the last 2 or so da ys he started to get redness of his right leg. He has had of feverish feeling but highest temperature was 99.9. He has had some mild diffuse body aches. He states this is all typical with his cellulitis. He has had this probably 6 or more times in the right leg. He has no diabetes or no known cause or reason for recurrent cellulitis. He has been treated with multiple antibiotics without problems. He has required admission sometimes. He states sometimes his white count goes up over 30,000 with these. Antibiotics get them better. Nothing makes it worse. Prior similar symptoms: Yes PFSH PFSH Medical History Asthma Home Medications naproxen [Naprosyn] 500 mg PO BID PRN #30 tab 09/28/20 [Rx Last Taken Unknown] amoxicillin-pot clavulanate [Augmentin] 1 tab PO Q12H #20 tab 11/19/20 [Rx Last Taken Unknown] Allergy/AdvReac Type Severity Reaction Status Date / Time hydrocodone [From [place]] AdvReac Upset Verified 11/19/20 18:45 Stomach Family History Other Diabetes Obesity Social History Smoking Status: Never smoker Smokeless tobacco user: chewing tobacco ROS ROS ED Constitutional Constitutional ED: Reports fever(s) and subjective; Denies sweats Eyes Eyes: Denies blurry vision ENT ENT ED: Denies rhinorrhea Cardiovascular Cardiovascular: Denies chest pain Respiratory/Chest Respiratory/Chest: Denies cough or dyspnea Gastrointestinal Gastrointestinal: Denies abdominal pain, nausea or vomiting Genitourinary Genitourinary ED: Denies dysuria Musculoskeletal Musculoskeletal: Reports myalgias; Denies arthralgias Integumentary Reports rash Neurologic Neurologic: Denies headache(s) Psychiatric Psychiatric: Denies depression Endocrine Endocrinology: Denies polydipsia or polyuria EXAM Physical Exam Const Vital Signs: 11/19/20 18:43 11/19/20 18:56 Temperature 96.8 F L Temperature Source Temporal Pulse Rate 96 Respiratory Rate 18 Respiratory Effort Normal Non-Labored Respiratory Pattern Normal Blood Pressure 159/99 H Blood Pressure Mean 119 Pulse Ox 98 Oxygen Delivery Method Room Air Positive well nourished, well developed and obese General Appearance ED: well developed and NAD; Negative for cyanotic or diaphoretic Nutritional Appearance: obese HEENT Negative for trauma Eyes PERRL Neck supple Chest Wall inspection of chest normal Resp normal respiratory effort and clear to auscultation bilaterally Auscultation: Negative for wheezes Cardio regular rate and regular rhythm GI normal to inspection, nondistended, normoactive bowel sounds Extremity Extremity Narrative: Patient's extremities are large but not really edematous. His right leg does show erythema to the dorsal and medial aspect of the lower leg/guerrero. He also has some erythema of the medial upper thigh. He has an old surgical scar in that area but this is from an injury and not related to the infection. There is no sign of abscess. General Extremety ED: Yes other findings General Extremity: other findings Neuro oriented x3 Sensorium / Orientation: alert Psych mental status grossly normal Skin Skin Narrative: See above MDM MDM MDM Narrative Medical decision making narrative: Patient's white count is minimally elevated at 13.5. Electrolytes show minimal elevation of glucose at 111. Renal functions normal. Lactic acid is normal. Patient is given IV vancomycin here. We will get him home on oral antibiotics. We discussed returning with worsening swelling, redness, fevers, nausea vomiting or inability to keep antibiotics down. He develops chest pain or any other symptoms. He should return Lab Data Attestation: I reviewed the patient's lab results. Labs: Laboratory Results - last 24 hr 11/19/20 11/19/20 11/19/20 19:08 19:08 19:08 WBC 13.5 H RBC 5.30 Hgb 15.1 Hct 47.1 MCV 88.9 MCH 28.5 MCHC 32.1 RDW Std Deviation 45.3 H RDW Coeff of Annalisa 14.1 Plt Count 320 MPV 10.0 Immature Gran % (Auto) 0.400 Neut % (Auto) 71.0 H Lymph % (Auto) 18.0 L [place] % (Auto) 8.7 Eos % (Auto) 1.5 Baso % (Auto) 0.4 Absolute Neuts (auto) 9.6 H Absolute Lymphs (auto) 2.42 Nucleated RBC % 0 Sodium 139 Potassium 3.8 Chloride 104 Carbon Dioxide 30.0 Anion Gap 5 BUN 11 Creatinine 0.91 Estim Creat Clear Calc 122.97 Est GFR (MDRD) Af Amer 124 Est GFR (MDRD) Non-Af 102 BUN/Creatinine Ratio 12.1 Glucose 111 H Lactic Acid 1.5 Calcium 8.8 Discharge Plan Triage Chief Complaint: Cellulitis ED Provider: Janusz Lee Dx/Rx/DC Orders Clinical Impression: Cellulitis Instructions: ED Cellulitis, Work Release Form Prescriptions: New amoxicillin-pot clavulanate [Augmentin] 875-125 mg tablet 1 tab PO Q12H Qty: 20 RF: 0 No Action naproxen [Naprosyn] 500 mg tablet 500 mg PO BID PRN (Reason: pain) Qty: 30 RF: 0 Stand Alone Forms: ED Work / School Excuse Primary Care Provider: Care Physician,No Primary Referrals: Care Physician,No Primary [Primary Care Provider] - Wilbur Bautista MD [STAFF PHYSICIAN] - 2 Days Disposition Disposition: Home, Self Care
== END 2020-11-19 23:18 | disposition home or self-care (01) ==
PROVIDERS: Emergency Provider Emergency Medicine
DX: L03.115 Cellulitis of right lower limb (principal); E66.9 Obesity, unspecified
CPT/HCPCS: 80048; 83605; 85025; 87040; 96365; 96366; 99283; J7040; J7050; A4216

== ENCOUNTER 2020-12-02 11:38 | Emergency (ER) | payer OTHER, SELFPAY ==
[2020-12-02 11:39] VITALS: BP 161/107; PULSE 102; RESP 18; TEMP 36.1; O2SAT 97; BMI 55.1
--- NOTE | 2020-12-02 11:56 | EDS_ITS ---
HPI History of Present Illness Chief Complaint: General Illness Informant: patient Narrative Narrative: Patient presents the emergency room asking to have his white blood cell count checked. He tells me that he was in the emergency department a couple weeks ago as white blood cell count was elevated and he had erythema of the right leg. He was treated with Augmentin for cellulitis which has been a recurrent issue for him. Patient states that he called off work because he had the myalgias. He has not had a fever. He has not had any more muscle aches. He states that the myalgias returned last night but they were gone again this morning. [facility] Medical History (Updated 12/02/20 @ 13:[address] Saad Suarez DO) Asthma Cellulitis Empyema of left pleural space Multiple pulmonary emboli suspected hypercoagulable disorder Home Medications naproxen [Naprosyn] 500 mg PO BID PRN #30 tab 09/28/20 [Rx Last Taken Unknown] amoxicillin-pot clavulanate [Augmentin] 1 tab PO Q12H #20 tab 11/19/20 [Rx Last Taken Unknown] Allergy/AdvReac Type Severity Reaction Status Date / Time hydrocodone [From [place]] AdvReac Upset Verified 12/02/20 11:39 Stomach Family History Other Diabetes Obesity Social History (Updated 12/02/20 @ 11:[address] Saad Suarez DO) Smoking Status: Never smoker Smokeless tobacco user: chewing tobacco substance use type: does not use ROS ROS ED Constitutional Constitutional ED: Denies chills or weight loss Eyes Eyes: Denies change in vision or diplopia ENT ENT ED: Denies ear pain, rhinorrhea or sore throat Cardiovascular Cardiovascular: Denies chest pain, orthopnea, palpitations or racing heartbeat Respiratory/Chest Respiratory/Chest: Denies cough, dyspnea or orthopnea Gastrointestinal Gastrointestinal: Denies abdominal pain, diarrhea, nausea or vomiting Genitourinary Genitourinary ED: Denies dysuria, hematuria or urinary frequency Musculoskeletal Musculoskeletal: Reports myalgias; Denies arthralgias Integumentary Denies abscess or rash Neurologic Neurologic: Denies headache(s) or weakness Psychiatric Psychiatric: Denies anxiety, depression, suicidal ideation or suicidal thoughts Endocrine Endocrinology: Denies polydipsia, polyphagia or polyuria Allergic/Immunologic Allergic/Immunologic ED: Denies mouth swelling, tongue swelling or urticaria EXAM Physical Exam Const Vital Signs: 12/02/20 11:39 12/02/20 12:11 Temperature 96.9 F L Temperature Source Temporal Pulse Rate 102 H Respiratory Rate 18 Respiratory Effort Normal Non-Labored Respiratory Pattern Normal Blood Pressure 161/107 H Blood Pressure Mean 125 Pulse Ox 97 Oxygen Delivery Method Room Air Positive well nourished, well developed and obese General Appearance ED: well developed Nutritional Appearance: obese HEENT Reports normocephalic, head/scalp atraumatic and moist mucous membranes Eyes PERRL and EOMs intact bilaterally Neck no lymphadenopathy, supple and no JVD Resp normal respiratory effort and clear to auscultation bilaterally Cardio regular rate, regular rhythm and no murmurs GI normal to inspection, nondistended, normoactive bowel sounds and non-tender Palpation: soft Back/Spine no CVA tenderness and normal ROM Extremity normal to inspection General Extremety ED: Negative for edema General Extremity: Negative for edema Neuro oriented x3 and CN's II-XII intact bilaterally Sensorium / Orientation: alert Motor Exam: strength 5/5 throughout Psych mental status grossly normal Mood & Affect: Negative for depressed or tearful Skin no rashes or lesions noted and no wounds MDM MDM MDM Narrative Medical decision making narrative: Patient's white blood cell count is 10.7. This point patient be discharged home instructions for Tylenol Motrin for the myalgias. Return if worsening or concerns Lab Data Attestation: I reviewed the patient's lab results. Labs: Laboratory Results - last 24 hr 12/02/20 12:10 WBC 10.7 RBC 5.24 Hgb 15.0 Hct 46.9 MCV 89.5 MCH 28.6 MCHC 32.0 RDW Std Deviation 45.2 H RDW Coeff of Annalisa 13.7 Plt Count 311 MPV 9.5 Immature Gran % (Auto) 0.300 Neut % (Auto) 76.4 H Lymph % (Auto) 16.7 L [place] % (Auto) 4.9 Eos % (Auto) 1.3 Baso % (Auto) 0.4 Absolute Neuts (auto) 8.2 H Absolute Lymphs (auto) 1.78 Nucleated RBC % 0 Discharge Plan Triage Chief Complaint: General Illness ED Provider: Saad Suarez Dx/Rx/DC Orders Clinical Impression: Myalgia Instructions: ED Myalgias Prescriptions: No Action naproxen [Naprosyn] 500 mg tablet 500 mg PO BID PRN (Reason: pain) Qty: 30 RF: 0 amoxicillin-pot clavulanate [Augmentin] 875-125 mg tablet 1 tab PO Q12H Qty: 20 RF: 0 Primary Care Provider: Care Physician,No Primary Referrals: Tyler Hernández MD [STAFF PHYSICIAN] - As Needed (for primary care) Care Physician,No Primary [Primary Care Provider] - Disposition Disposition: Home, Self Care
[2020-12-02 12:24] LABS: Absolute Lymphocyte Count 1.78 X10^3/uL (0.83-4.51); Absolute Neutrophil Count 8.2 X10^3/uL (2.0-7.7); Basophil# 0.04 X10^3/uL; Basophil% 0.4 % (0-1); Eosinophil# 0.14 X10^3/uL; Eosinophils% 1.3 % (0-5); Hematocrit 46.9 % (40-54); Lymphocyte # 1.78 X10^3/ul (0.83-4.51); Lymphocyte % 16.7 % (19-41); Mean Corpuscular Hgb 28.6 pg (27.0-32.0); Mean Corpuscular Volume 89.5 fL (80-94); Mean Platelet Vol. 9.5 fl (6.2-12.0); Monocyte# 0.52 X10^3/uL; Monocyte% 4.9 % (0-10); NRBC Flagged by Analyzer 0 % (0-5); Neutrophil # 8.17 X10^3/uL (2.7-7.7); Neutrophil % 76.4 % (47-70); Platelet Count 311 K/mm3 (150-450); RBC Distribution Width CV 13.7 % (11.6-14.6); RBC Distribution Width SD 45.2 fl (35.1-43.9); Red Blood Count 5.24 M/mm3 (4.6-6.2); White Blood Count 10.7 K/mm3 (4.4-11.0)
== END 2020-12-02 13:21 | disposition home or self-care (01) ==
PROVIDERS: Emergency Provider Emergency Medicine
DX: M79.10 Myalgia, unspecified site (principal)
CPT/HCPCS: 85025; 99283; A4216

== ENCOUNTER 2020-12-04 20:25 | Emergency (ER) | payer OTHER, SELFPAY ==
[2020-12-04 20:26] VITALS: BP 145/80; PULSE 109; RESP 18; TEMP 36.6; O2SAT 99; BMI 54.7
== END 2020-12-04 20:35 | disposition left against medical advice (07) ==
LOC: ED 20:35
DX: Z53.21 Procedure and treatment not carried out due to patient leaving prior to being seen by health care provider (principal)

== ENCOUNTER 2020-12-06 05:17 | Emergency (ER) | payer OTHER, SELFPAY ==
[2020-12-06 05:18] VITALS: BP 145/96; PULSE 95; RESP 20; TEMP 35.7; O2SAT 97; BMI 54.3
--- NOTE | 2020-12-06 05:57 | EDS_ITS ---
HPI History of Present Illness Chief Complaint: Lower Extremity Injury Informant: patient Narrative Narrative: Patient is a 35-year-old male who presents to the emergency department for left calf pain. He states that this started yesterday. The pain has fluctuated since its onset. He denies any injury. He states that lifting his toe seems to make it better. He has not been take anything for this. No significant swelling. He denies any history of DVT/PE to me. His record states that he has a history of multiple PEs although he is not on any blood thinning medications. No recent. No prolonged immobilization. He denies any recent surgeries. He initially described as a burning sensation. No joint pain or swelling. He denies any low back pain. He also is complaining of some body aches. He has had a mild cough that is productive of sputum. He thought he had a low-grade fever. The majority of his symptoms have resolved except the cough has been persistent. Patient does not believe he has Covid. He has not been vaccinated though. He denies any chest pain. No abdominal pain or nausea/vomiting. No change in bowel movements. [facility] Medical History (Updated 12/06/20 @ 06:[address] Simone Villareal DO) Asthma Cellulitis Empyema of left pleural space Multiple pulmonary emboli suspected hypercoagulable disorder Home Medications amoxicillin-pot clavulanate 1 tab PO BID 12/06/20 [History Last Taken Unknown] Allergy/AdvReac Type Severity Reaction Status Date / Time hydrocodone [From [place]] AdvReac Upset Verified 12/04/20 20:29 Stomach Family History Other Diabetes Obesity Social History Smoking Status: Never smoker Smokeless tobacco user: chewing tobacco substance use type: does not use ROS ROS ED Constitutional Constitutional ED: Denies chills or fever(s) Eyes Eyes: Denies change in vision ENT ENT ED: Denies epistaxis or rhinorrhea Cardiovascular Cardiovascular: Denies chest pain or palpitations Respiratory/Chest Respiratory/Chest: Reports cough and sputum; Denies dyspnea Gastrointestinal Gastrointestinal: Denies abdominal pain, diarrhea, nausea or vomiting Musculoskeletal Musculoskeletal: Reports myalgias; Denies back pain or neck pain Integumentary Denies rash Neurologic Neurologic: Denies headache(s) EXAM Physical Exam Const Vital Signs: 12/06/20 05:18 Temperature 96.2 F L Temperature Source Temporal Pulse Rate 95 Respiratory Rate 20 H Blood Pressure 145/96 H Blood Pressure Mean 112 Pulse Ox 97 Oxygen Delivery Method Room Air Positive well nourished and well developed General Appearance ED: well developed and NAD HEENT Reports normocephalic, head/scalp atraumatic and moist mucous membranes Eyes PERRL and EOMs intact bilaterally Neck supple Chest Wall inspection of chest normal Resp normal respiratory effort and clear to auscultation bilaterally Auscultation: Negative for rales, rhonchi or wheezes Cardio regular rate, regular rhythm and no murmurs GI normal to inspection, nondistended, normoactive bowel sounds and non-tender Palpation: soft; Negative for guarding or rebound tenderness present Back/Spine no CVA tenderness Extremity normal to inspection Extremity Narrative: Tenderness along the lateral aspect of left calf. Neurovascular intact. No significant swelling. General Extremety ED: Negative for edema General Extremity: Negative for edema Neuro Sensorium / Orientation: alert Motor Exam: strength 5/5 throughout Psych mental status grossly normal Skin no rashes or lesions noted MDM MDM MDM Narrative Medical decision making narrative: Patient presents to the emergency department for left calf pain. He is concerned he has a blood clot. He does not have any risk factors based on my history. He denies any chest pain or shortness of breath. He satting well on room air. Not tachycardic. The leg exam is benign. I will order an ultrasound of the leg but we do not have the capabilities of doing this until 8 AM. Patient does not want to stay and wait for that so it has been ordered and he can call the number to have this done as an outpatient. We will hold off on any anticoagulation as I currently have low suspicion for DVT. Patient is agreeable to getting a Covid swab at this time. Patient's Covid test did come back positive. Patient states he does not believe this and is going to go get another Covid test somewhere else. Being Covid positive does put him at risk for hypercoagulable state but patient still does not want to stay until 8 AM which is only an hour and a half away to get the ultrasound study. He is given the referral number and is to call the number to schedule us as an outpatient which can be done today. Return precautions are reviewed with him. He understands and is agreeable this plan. All questions were answered. Patient to quarantine. Discharge Plan Triage Chief Complaint: Lower Extremity Injury ED Provider: Simone Villareal Dx/Rx/DC Orders Clinical Impression: COVID-19, Calf pain Instructions: Coronavirus Disease 2019 (COVID-19): Caring for Yourself or Others Prescriptions: No Action amoxicillin-pot clavulanate 875-125 mg tablet 1 tab PO BID RF: 0 Primary Care Provider: Care Physician,No Primary Referrals: Care Physician,No Primary [Primary Care Provider] - 1 Week Disposition Disposition: Home, Self Care Discharge Date/Time: 12/06/20 06:32
--- NOTE | 2020-12-06 06:32 | ED.RN ---
PT informed how to get outpatient US and to let them know he is covid +. All questions answered, no further concerns.
== END 2020-12-06 06:32 | disposition home or self-care (01) ==
PROVIDERS: Emergency Provider Emergency Medicine
DX: U07.1 COVID-19 (principal); M79.662 Pain in left lower leg
CPT/HCPCS: 87426; 99282

== ENCOUNTER → 2020-12-07 14:36 | Outpatient (CLI) | payer OTHER, SELFPAY ==
[2020-12-06 05:18] VITALS: BMI 54.3
--- NOTE | 2020-12-07 14:39 | VDLE_ITS ---
Reason For Study: Pain RIGHT LEFT CFV is compressible. GSV is normal. Procedure CFV, FV and PopV are compressible. This is a venous duplex using B-mode, color T/P Trunk is compressible. flow and spectral Doppler. PTV is compressible. Exam performed in department. LT PerV is compressible. The exam was abbreviated due to the COVID 19 protocol. Pt done as outpatient ED scan. No PCP. Seen in ED 12/06/2020, +Covid 19. VL/Venous Duplex US, Unilateral Interpretation Summary There is no evidence of left lower extremity deep vein thrombosis. Left great s aphenous vein appears patent and compressible segmentally. Compressible right common femoral vein Abbreviated Covid 19 protocol Ordering Physician: Simone Villareal Performed By: Angela Santoro RVT
== END ==
PROVIDERS: Visit Provider Emergency Medicine
DX: M79.605 Pain in left leg (principal); U07.1 COVID-19
CPT/HCPCS: 93971

== ENCOUNTER 2021-07-30 13:13 | Emergency (ER) | payer OTHER, SELFPAY ==
[2021-07-30 13:14] VITALS: BP 134/75; PULSE 108; RESP 16; TEMP 36.4; O2SAT 95; BMI 55.7
--- NOTE | 2021-07-30 13:48 | EDS_ITS ---
HPI History of Present Illness Chief Complaint: Eye Problem Informant: patient Onset/Context/Timing Location: Left Eye Onset: Weeks (3-4) Context: Gradual Onset Timing: Continuous Worsened by: Nothing Relieved by: Clear eyes Associated Symptoms Associated Symptoms - Eyes: Burning, Crusting, Matting and Photophobia; Negative for Eyelid swelling, Foreign body sensation, Itching, Pain and Redness History of injury: No Visual correction: None Narrative Narrative: Patient presents with left thigh pain that has been getting worse over the past 3 to 4 weeks. Patient states it is gradually getting worse. Patient states it got better for a few days and then came back. Patient describes pain as a burning sensation. Patient denies any sharp pain. Patient states he was using [id number] pinkeye medication as well as clear eyes. Patient states the Clear Eyes did help somewhat. Patient admits to some matting and crusting in his left eye. Patient also admits to some mild photophobia. Patient states that when he wakes up his vision is somewhat blurry in his left eye. Patient denies any trauma or injury. Patient denies any foreign body sensation. Patient does not wear glasses or contacts. [facility] Medical History Asthma Cellulitis Empyema of left pleural space Multiple pulmonary emboli suspected hypercoagulable disorder Home Medications amoxicillin-pot clavulanate 1 tab PO BID 12/06/20 [History Last Taken Unknown] Allergy/AdvReac Type Severity Reaction Status Date / Time hydrocodone [From [place]] AdvReac Upset Verified 07/30/21 13:14 Stomach Family History Other Diabetes Obesity Social History Smoking Status: Never smoker Smokeless tobacco user: chewing tobacco substance use type: does not use ROS ROS ED Constitutional Constitutional ED: Denies chills or fever(s) Eyes Eyes: Reports blurry vision; Denies diplopia ENT ENT ED: Denies rhinorrhea or sore throat Cardiovascular Cardiovascular: Denies chest pain or palpitations Respiratory/Chest Respiratory/Chest: Denies cough or dyspnea Gastrointestinal Gastrointestinal: Denies nausea or vomiting Genitourinary Genitourinary ED: Denies dysuria or hematuria Musculoskeletal Musculoskeletal: Denies back pain or neck pain Integumentary Denies abscess or rash Neurologic Neurologic: Denies headache(s) or weakness Allergic/Immunologic Allergic/Immunologic ED: Denies mouth swelling or urticaria EXAM Physical Exam Const Vital Signs: 07/30/21 13:14 Temperature 97.5 F L Temperature Source Temporal Pulse Rate 108 H Respiratory Rate 16 Blood Pressure 134/75 H Blood Pressure Mean 94 Pulse Ox 95 Oxygen Delivery Method Room Air Positive well nourished, well developed and obese General Appearance ED: well developed and NAD Nutritional Appearance: obese HEENT atraumatic Eyes General Eye ED: Yes normal appearance of both eyes and normal light reflex Alignment: alignment normal Eyelid: eyelids normal Conjunctiva: conjunctiva normal Sclera: sclera normal Pupil: PERRL and accommodation reflex normal EOM: Negative for EOM abnormal Neck supple and no JVD Resp normal respiratory effort and clear to auscultation bilaterally Cardio regular rate and regular rhythm GI non-tender Palpation: soft Neuro oriented x3, CN's II-XII intact bilaterally, moves all extremities and no sensory deficits noted Sensorium / Orientation: alert Motor Exam: strength 5/5 throughout MDM MDM MDM Narrative Medical decision making narrative: Tetracaine and fluorescein dye was applied. There is a small mobile foreign body noted. There is no corneal abrasion noted. Conjunctival was injected. The eye was irrigated with saline. Patient was given erythromycin ophthalmic ointment. Patient was given a note for work for today. Patient was instructed to follow-up with his primary care physician in 3 to 5 days. Patient understood and was agreeable with the plan. All questions were answered. Discharge Plan Triage Chief Complaint: Eye Problem ED Provider: Yonatan Barbosa Dx/Rx/DC Orders Clinical Impression: Foreign body of left eye, Conjunctivitis Instructions: ED Conjunctivitis, Bacterial, ED Corneal Foreign Body, Removed Prescriptions: No Action amoxicillin-pot clavulanate 875-125 mg tablet 1 tab PO BID RF: 0 Stand Alone Forms: ED Work / School Excuse Primary Care Provider: Care Physician,No Primary Referrals: Wisam Ngo MD [STAFF PHYSICIAN] - 3-5 Days Randal Ramirez MD [NON-STAFF] - 3-5 Days Care Physician,No Primary [Primary Care Provider] - Disposition Disposition: Home, Self Care
--- NOTE | 2021-07-30 14:23 | CM.ED ---
SW Note Referral Source: Case Find Referral Reason: No Primary Care Physician (PCP) SW reviewed chart and noted that patient has no PCP. SW provided patient with list of [facility] Physician List for reference. No other issues or concerns voiced at this time. SW remains available for any additional needs. Plan: Provided patient with PCP information Estephania FLORENTINO
--- NOTE | 2021-07-30 14:24 | CM.ED ---
SW Note Referral Source: Case Find Referral Reason: No Primary Care Physician (PCP) SW reviewed chart and noted that patient has no PCP. SW provided patient with list of [facility] and [facility] Physician List for reference. No other issues or concerns voiced at this time. SW remains available for any additional needs. Plan: Provided patient with PCP information Estephania FLORENTINO
[2021-07-30 15:06] LABS: Erythrocyte Sedimentation Rate 26 mm/hr (0-20)
[2021-07-30 15:21] VITALS: RESP 22
[2021-07-30] MEDS: Fluorescein 1 MG STRIP 1 STRIP OPHTHALMIC (16:00)
[2021-07-30] MEDS: Tetracaine 0.5% Ophthalmic Bottle 1 DRP OPHTHALMIC (16:00)
[2021-07-30] MEDS: Erythromycin Ophthalmic (NSY) 1 GM OPTH.TUBE 1 APPLIC LEFT EYE (16:26)
== END 2021-07-30 16:30 | disposition home or self-care (01) ==
PROVIDERS: Emergency Provider Emergency Medicine; Visit Provider Emergency Medicine
DX: T15.92XA Foreign body on external eye, part unspecified, left eye, initial encounter (principal); H10.9 Unspecified conjunctivitis; F17.220 Nicotine dependence, chewing tobacco, uncomplicated; E66.9 Obesity, unspecified; X58.XXXA Exposure to other specified factors, initial encounter
CPT/HCPCS: 85652; 99283; A4216

== ENCOUNTER 2021-09-25 12:35 | Emergency (ER) | payer OTHER, SELFPAY ==
[2021-09-25 12:36] VITALS: BP 181/101; PULSE 104; RESP 20; TEMP 36.6; O2SAT 99; BMI 56.3
--- NOTE | 2021-09-25 13:10 | EX.ED.GUMALE ---
HPI History of Present Illness Chief Complaint: Male Pain/Injury Narrative Narrative: Patient presents with 3 weeks of left groin pain that is worse with movement and standing. He denies any recent injury that he can recall, no fall. While he thinks that it is a groin strain, he became concerned because a friend told him that it may be a hernia. However, he denies any symptoms of incarcerated hernia over the last 3 weeks. No fevers or chills. No nausea or vomiting. No dysuria or hematuria. No problems with bowel movements. He denies any erythema to the area. It is worse with standing and walking at times. Pain has been intermittent. He states he took off work the other day because of the pain and was going to come to the hospital yesterday, but he did not have as much pain as previously. [facility] Medical History Asthma Cellulitis Empyema of left pleural space Multiple pulmonary emboli suspected hypercoagulable disorder Home Medications amoxicillin-pot clavulanate 1 tab PO BID 12/06/20 [History Last Taken Unknown] cyclobenzaprine 10 mg PO TID PRN #20 tab 09/25/21 [Rx Last Taken Unknown] ibuprofen 800 mg PO Q8H PRN #30 tab 09/25/21 [Rx Last Taken Unknown] Allergy/AdvReac Type Severity Reaction Status Date / Time hydrocodone [From [place]] AdvReac Upset Verified 07/30/21 13:14 Stomach Family History Other Diabetes Obesity Social History Smoking Status: Never smoker Smokeless tobacco user: chewing tobacco substance use type: does not use ROS ROS ED ROS Narrative Constitutional: No fever, no chills. HEENT: No sore throat. No neck pain. No loss of vision. No rhinorrhea. Cardiovascular: No chest pain. No palpitations. No pedal edema. Respiratory: No cough, no shortness of breath. Abdominal: No abdominal pain. No nausea. No vomiting. Genitourinary: No dysuria. No hematuria. Musculoskeletal: Left groin pain worse with movement of left leg, flexion and extension of hip. Neurologic: No headaches. No dizziness. No lightheadedness. Skin: No rash. No change in color. Psychiatric: No depression. No anxiety. EXAM Physical Exam Narrative Exam Narrative: Afebrile. Vital signs noted. HEENT: Normocephalic. Atraumatic. PERRL, EOMI. Neck soft and supple. No point tenderness or step off. Cardiovascular: Regular rate and rhythm. No murmurs, rubs, or gallops appreciated. Respiratory: No tachypnea. Lungs clear to auscultation bilaterally. Gastrointestinal: Abdomen soft, nontender, with normoactive bowel sounds. No rebound or guarding. Neurological: Awake. Alert. Nonfocal, nonlateralizing. Skin: No rash. Normal color. No pallor. Musculoskeletal: No pedal edema. Full range of motion extremities. Mild tenderness in left inguinal area. Chaperoned examination reveals no testicular tenderness, no palpable hernia. No noted erythema. Const Vital Signs: 09/25/21 12:36 Temperature 97.8 F Temperature Source Temporal Pulse Rate 104 H Respiratory Rate 20 H Blood Pressure 181/101 H Blood Pressure Mean 127 Pulse Ox 99 Oxygen Delivery Method Room Air MDM MDM MDM Narrative Medical decision making narrative: I do feel that this is more of a groin strain. I do not feel that blood work or imaging is indicated. Patient was written prescriptions for Motrin 800 mg and for muscle relaxer in the form of Flexeril 10 mg. He will apply ice to the affected areas. I wrote him a note to be off work today as he works third shift. He will follow-up with a primary care physician. I feel he can be discharged safely home as there are no signs of incarcerated hernia. Return instructions to the emergency department were reviewed. Disposition is discharged home in stable condition. Discharge Plan Triage Chief Complaint: Male Pain/Injury ED Provider: Issac Larkin Dx/Rx/DC Orders Clinical Impression: Strain of left inguinal muscle, Groin pain Instructions: ED Groin Strain Prescriptions: New ibuprofen 800 mg tablet 800 mg PO Q8H PRN (Reason: pain) Qty: 30 RF: 0 cyclobenzaprine 10 mg tablet 10 mg PO TID PRN (Reason: muscle spasm) Qty: 20 RF: 0 No Action amoxicillin-pot clavulanate 875-125 mg tablet 1 tab PO BID RF: 0 Stand Alone Forms: ED Work / School Excuse Primary Care Provider: Care Physician,No Primary Referrals: Wilbur Bautista MD [STAFF PHYSICIAN] - 1 Week if not improving Care Physician,No Primary [Primary Care Provider] - Disposition Disposition: Home, Self Care
== END 2021-09-25 13:23 | disposition home or self-care (01) ==
LOC: ED 13:16
PROVIDERS: Emergency Provider Emergency Medicine; Visit Provider Emergency Medicine
DX: R10.30 Lower abdominal pain, unspecified (principal); S39.011A Strain of muscle, fascia and tendon of abdomen, initial encounter; X58.XXXA Exposure to other specified factors, initial encounter; J45.909 Unspecified asthma, uncomplicated; Z86.711 Personal history of pulmonary embolism
CPT/HCPCS: 99282

== ENCOUNTER 2021-10-24 13:51 | Emergency (ER) | payer OTHER, SELFPAY ==
[2021-10-24 13:52] VITALS: BP 166/81; PULSE 128; RESP 20; TEMP 37.6; O2SAT 94; BMI 55.7
[2021-10-24 15:51] VITALS: BP 146/92; PULSE 120; RESP 19; TEMP 37.6; O2SAT 96
[2021-10-24] MEDS: Ketorolac 30 MG/ML Syringe IV (15:59)
[2021-10-24 16:00] VITALS: BP 146/92; PULSE 120; RESP 19; TEMP 37.6; O2SAT 96
[2021-10-24 16:10] LABS: Absolute Lymphocyte Count 1.71 X10^3/uL (0.83-4.51); Absolute Neutrophil Count 28.9 X10^3/uL (2.0-7.7); Basophil# 0.11 X10^3/uL; Basophil% 0.3 % (0-1); Eosinophil# 0.01 X10^3/uL; Hematocrit 49.3 % (40-54); Hemoglobin 16.1 g/dL (13.0-16.5); Lymphocyte # 1.71 X10^3/ul (0.83-4.51); Lymphocyte % 5.2 % (19-41); Mean Corp Hgb Conc 32.7 g/dL (32-36); Mean Corpuscular Hgb 28.6 pg (27.0-32.0); Mean Corpuscular Volume 87.7 fL (80-94); Mean Platelet Vol. 9.2 fl (6.2-12.0); Monocyte# 1.63 X10^3/uL; NRBC Flagged by Analyzer 0 % (0-5); Neutrophil # 28.91 X10^3/uL (2.7-7.7); Neutrophil % 88.7 % (47-70); POSITIVE COUNT YES; POSITIVE DIFFERENTIAL YES; Platelet Count 337 K/mm3 (150-450); RBC Distribution Width CV 13.7 % (11.6-14.6); RBC Distribution Width SD 43.8 fl (35.1-43.9); Red Blood Count 5.62 M/mm3 (4.6-6.2)
--- NOTE | 2021-10-24 16:10 | RAD_ITS ---
STUDY: X-RAY CHEST REASON FOR EXAM: Male, 36 years old. fever cough TECHNIQUE: Single AP portable view of the chest. COMPARISON: 04/19/2019 FINDINGS: The lungs are clear and expanded. There is no demonstrated pleural abnormality. Normal size heart. Normal mediastinum and cuca. Normal visualized pulmonary arteries. Normal visualized aortic arch and descending thoracic aorta. Normal visualized thoracic spine. Normal visualized ribs, clavicles, and shoulders. There is no demonstrated abnormality of the visualized soft tissue structures of the upper abdomen. RAD/Chest 1 View (Portable) IMPRESSION: Normal x-ray examination of the chest. Electronically Signed: Donald Miramontes MD at 16:23 EDT ,
[2021-10-24 16:13] LABS: Differential Indicated SCAN CRITERIA MET
[2021-10-24 16:14] LABS: White Blood Count 32.6 K/mm3 (4.4-11.0)
[2021-10-24 16:24] LABS: Anion Gap 6 (5-15); BUN 13 mg/dL (7-18); BUN/Creat Ratio 13.3 RATIO (10-20); Calcium,Total 9.5 mg/dL (8.5-10.1); Chloride 101 mmol/L (98-107); Creatinine, Serum 0.98 mg/dL (0.70-1.30); EST Glomerular Filtration Rate 93 mL/min (>60); Est Glom Filt Rate - Afr Amer 112 mL/min (>60); Estimated Creatinine Clearance 113.12 ml/min; Glucose 107 mg/dL (74-106); Potassium 4.3 mmol/L (3.5-5.1); Sodium Level 135 mmol/L (136-145)
[2021-10-24 16:37] LABS: Differential Comment SCANNED
--- NOTE | 2021-10-24 16:46 | EDS_ITS ---
HPI History of Present Illness Chief Complaint: General Illness Informant: patient Narrative Narrative: 6-year-old male presenting to the emergency department with myalgias. Patient states he has a history of recurrent cellulitis of the right leg. States it typically begins by generalized myalgias followed by fever and then he gets the rash and cellulitis. He states that he got off work today and developed some myalgias. He notes his temperature was up to 99.6. He notes he has had a slight but that is not out of the ordinary for him he denies any other infectious symptoms. PFSH PFS Medical History Asthma Cellulitis Empyema of left pleural space Multiple pulmonary emboli suspected hypercoagulable disorder Home Medications cephalexin 500 mg capsule 500 mg PO Q6 #40 CAPSULES 10/24/21 [Rx Last Taken Unknown] oxycodone-acetaminophen 5 mg-325 mg tablet 1 tab PO Q6H PRN PRN Pain 3 days #12 TABLETS 10/24/21 [Rx Last Taken Unknown] Allergy/AdvReac Type Severity Reaction Status Date / Time hydrocodone [From [place]] AdvReac Upset Verified 10/24/21 13:54 Stomach Family History Other Diabetes Obesity Social History Smoking Status: Never smoker Smokeless tobacco user: chewing tobacco substance use type: does not use ROS ROS ED Constitutional Constitutional ED: Reports chills, fever(s) and subjective; Denies weight loss Eyes Eyes: Denies change in vision or diplopia ENT ENT ED: Denies ear pain, rhinorrhea or sore throat Cardiovascular Cardiovascular: Denies chest pain, orthopnea, palpitations or racing heartbeat Respiratory/Chest Respiratory/Chest: Reports cough; Denies dyspnea or orthopnea Gastrointestinal Gastrointestinal: Denies abdominal pain, diarrhea, nausea or vomiting Genitourinary Genitourinary ED: Denies dysuria, hematuria or urinary frequency Musculoskeletal Musculoskeletal: Reports myalgias; Denies arthralgias Integumentary Denies abscess or rash Neurologic Neurologic: Denies headache(s) or weakness Psychiatric Psychiatric: Denies anxiety, depression, suicidal ideation or suicidal thoughts Endocrine Endocrinology: Denies polydipsia, polyphagia or polyuria Allergic/Immunologic Allergic/Immunologic ED: Denies mouth swelling, tongue swelling or urticaria EXAM Physical Exam Const Vital Signs: 10/24/21 13:52 10/24/21 15:51 10/24/21 16:00 Temperature 99.6 F H 99.6 F H 99.6 F H Temperature Source Temporal Oral Oral Pulse Rate 128 H 120 H 120 H Respiratory Rate 20 H 19 H 19 H Respiratory Effort Respiratory Pattern Blood Pressure 166/81 H 146/92 H 146/92 H Blood Pressure Mean 109 110 Pulse Ox 94 96 96 Oxygen Delivery Method Room Air Room Air Room Air 10/24/21 16:00 10/24/21 17:00 10/24/21 17:00 Temperature 99.4 F H Temperature Source Oral Pulse Rate 115 H Respiratory Rate 18 Respiratory Effort Normal Non-Labored Respiratory Pattern Normal Blood Pressure 145/96 H 145/96 H Blood Pressure Mean 112 112 Pulse Ox 97 Oxygen Delivery Method Room Air Positive well nourished, well developed and obese General Appearance ED: well developed Nutritional Appearance: obese HEENT Reports normocephalic, head/scalp atraumatic and moist mucous membranes Eyes PERRL and EOMs intact bilaterally Neck no lymphadenopathy, supple and no JVD Resp normal respiratory effort and clear to auscultation bilaterally Cardio regular rhythm and no murmurs Rate: tachycardic GI normal to inspection, nondistended, normoactive bowel sounds and non-tender Palpation: soft Back/Spine no CVA tenderness and normal ROM Extremity normal to inspection General Extremety ED: Negative for edema General Extremity: Negative for edema Neuro oriented x3 and CN's II-XII intact bilaterally Sensorium / Orientation: alert Motor Exam: strength 5/5 throughout Psych mental status grossly normal Mood & Affect: Negative for depressed or tearful Skin no rashes or lesions noted and no wounds MDM MDM MDM Narrative Medical decision making narrative: White count is significantly elevated at 32.6. Lactic acid is normal. CMP shows a glucose of 107. Urine shows 10-25 white blood cells and 2+ bacteria. Nitrate negative leukocyte Estrace positive. This be sent for culture. Blood cultures were obtained. Received a dose of Toradol which helped for a while. I discussed went back and reexamined the patient. He now has erythema and warmth of the medial right thigh and leg which is consistent with his prior cellulitis. His heart rate is down to 100 and his oral temperature is 98.6. Patient was ordered IV antibiotics. He would like to not be admitted and to go home with oral antibiotics. While not ideal I do understand his decision due to the cost of hospitalization. Lab Data Attestation: I reviewed the patient's lab results. Labs: Laboratory Results - last 24 hr 10/24/21 10/24/21 10/24/21 16:00 16:00 16:00 WBC 32.6 H* RBC 5.62 Hgb 16.1 Hct 49.3 MCV 87.7 MCH 28.6 MCHC 32.7 RDW Std Deviation 43.8 RDW Coeff of Annalisa 13.7 Plt Count 337 MPV 9.2 Immature Gran % (Auto) 0.800 Neut % (Auto) 88.7 H Lymph % (Auto) 5.2 L [place] % (Auto) 5.0 Eos % (Auto) 0.0 Baso % (Auto) 0.3 Absolute Neuts (auto) 28.9 H Absolute Lymphs (auto) 1.71 Nucleated RBC % 0 Differential Comment SCANNED Diff Path Review May foll PT INR APTT Sodium 135 L Potassium 4.3 Chloride 101 Carbon Dioxide 28.0 Anion Gap 6 BUN 13 Creatinine 0.98 Estim Creat Clear Calc 113.12 Est GFR (MDRD) Af Amer 112 Est GFR (MDRD) Non-Af 93 BUN/Creatinine Ratio 13.3 Glucose 107 H Lactic Acid Calcium 9.5 Total Bilirubin 0.70 Direct Bilirubin 0.24 AST 29 ALT 68 H Alkaline Phosphatase 86 Total Protein 7.9 Albumin 3.5 Globulin 4.4 H Urine Color Urine Clarity Urine pH Ur Specific [place] Urine Protein Urine Glucose (UA) Urine Ketones Urine Occult Blood Urine Nitrite Urine Bilirubin Urine Urobilinogen Ur Leukocyte Esterase Urine RBC Urine WBC Ur Squamous Epith Cells Urine Bacteria Urine Mucus 10/24/21 10/24/21 10/24/21 17:25 17:25 17:40 WBC RBC Hgb Hct MCV MCH MCHC RDW Std Deviation RDW Coeff of Annalisa Plt Count MPV Immature Gran % (Auto) Neut % (Auto) Lymph % (Auto) [place] % (Auto) Eos % (Auto) Baso % (Auto) Absolute Neuts (auto) Absolute Lymphs (auto) Nucleated RBC % Differential Comment Diff Path Review PT 13.6 INR 1.1 APTT 30.5 Sodium Potassium Chloride Carbon Dioxide Anion Gap BUN Creatinine Estim Creat Clear Calc Est GFR (MDRD) Af Amer Est GFR (MDRD) Non-Af BUN/Creatinine Ratio Glucose Lactic Acid 1.0 Calcium Total Bilirubin Direct Bilirubin AST ALT Alkaline Phosphatase Total Protein Albumin Globulin Urine Color Yellow Urine Clarity Clear Urine pH 6.5 Ur Specific [place] 1.015 Urine Protein 30 H Urine Glucose (UA) Normal Urine Ketones 5 H Urine Occult Blood Negative Urine Nitrite Negative Urine Bilirubin Negative Urine Urobilinogen 4 H Ur Leukocyte Esterase 100 H Urine RBC 0-5 SEEN Urine WBC 10-25 SEEN Ur Squamous Epith Cells 0-5 SEEN Urine Bacteria 2+ Urine Mucus 2+ Radiography Diagnostic Testing: Clinical Impression(s) from Imaging Studies Chest X-Ray 10/24/21 16:10 IMPRESSION: Normal x-ray examination of the chest. Electronically Signed: Donald Miramontes MD at 16:23 EDT , Discharge Plan Triage Chief Complaint: General Illness ED Provider: Saad Suarez Dx/Rx/DC Orders Clinical Impression: Cellulitis, Sepsis, Morbid obesity with BMI of 40.0-44.9, adult Instructions: ED Cellulitis Prescriptions: New cephalexin [cephalexin] 500 mg capsule 500 mg PO Q6 Qty: 40 0RF oxycodone-acetaminophen [oxycodone-acetaminophen] 5-325 mg tablet 1 tab PO Q6H PRN PRN (Reason: Pain) 3 Days Qty: 12 0RF Primary Care Provider: Care Physician,No Primary Referrals: Suyapa Ellis [NON-STAFF] - As soon as possible (for primary care) Care Physician,No Primary [Primary Care Provider] - Disposition Disposition: Home, Self Care Capacity Capacity Assessment Tool Can the patient make a choice & communicate that choice?: Yes Can the patient understand benefits, risks and alternatives?: Yes Can the patient make a logical, rational choice?: Yes Is the choice the patient makes consistent w/ their values?: Yes Is there an impending, emergent risk to the patient?: Unable to Determine Does the patient have an Advance Directive?: No Is there a Surrogate Available?: No i.e. HCPOA: No i.e. close relative (spouse, child, parent, sibling)?: No
[2021-10-24 17:00] VITALS: BP 145/96; PULSE 115; RESP 18; TEMP 37.4; O2SAT 97
--- NOTE | 2021-10-24 17:25 | CASEMGMT ---
Social Work Consult: No PCP Referral source: Self referral due to above. This dialysis social worker met with patient in room. Introduced self and dialysis social worker role. Patient agreeable to speak with this dialysis social worker. This dialysis social worker broached topic of PCP. Patient states I have a PCP. This dialysis social worker inquired as to who patient PCP is. Patient states Some [facility] in [place]. Patient reports to not remember PCP's name. Patient encouraged to update medical team with PCP name if patient remembers. Patient denies any community concerns. Keegan ROSS, YUSRA
[2021-10-24 17:46] LABS: International Normalized Ratio 1.1; Prothrombin Time (Protime)PT. 13.6 SECONDS (11.7-14.9)
[2021-10-24 17:47] LABS: Partial Thromboplast Time 30.5 Seconds (24.1-36.2)
[2021-10-24 18:18] LABS: Color, Urine Yellow (Yellow); Glucose, Dipstick Normal (Normal); Ketone-Dipstick 5 mg/dl (Negative); Leukocyte Esterase-Dipstick 100 /ul (Negative); Nitrite-Dipstick Negative (Negative); Occult Blood-Urine Negative /ul (Negative); Protein-Dipstick 30 mg/dl (Negative); Specific Gravity, Urine 1.015 (1.002-1.030); Urine Bilirubin Dipstick Negative (Negative); Urine Clarity Clear (Clear); Urine Urobilinogen 4 mg/dl (Normal); Urine pH 6.5 (5.0 - 8.0)
[2021-10-24 18:57] LABS: AST(SGOT) 29 U/L (15-37); Alanine Aminotransfer ALT/SGPT 68 U/L (16-61); Albumin, Serum 3.5 g/dL (3.2-5.0); Alkaline Phosphatase 86 U/L (45-117); Bilirubin, Direct 0.24 mg/dL (0.00-0.30); Globulin 4.4 g/dL (2.2-4.2); Protein, Total 7.9 g/dL (6.4-8.2)
[2021-10-24 19:04] LABS: Bacteria 2+ /hpf (None Seen); Mucous, Urine 2+ /hpf (<or=2+); Squamous Epithelial Cells - UA 0-5 SEEN /hpf (0-5); White Blood Cells 10-25 SEEN /hpf (0-5)
[2021-10-24 19:05] LABS: Red Blood Cells-Urine 0-5 SEEN /hpf (0-5)
[2021-10-24] MEDS: Cefazolin 2 GM in 0.9% Normal Saline 100 ML IV (20:08)
[2021-10-24] MEDS: Acetaminophen 500 MG Tablet 1000 MG PO (20:11)
[2021-10-24 20:12] VITALS: BP 132/71; PULSE 109; RESP 20; TEMP 37.3; O2SAT 98
[2021-10-25 12:09] LABS: Pathologist Review Reviewed
== END 2021-10-24 21:14 | disposition home or self-care (01) ==
PROVIDERS: Emergency Provider Emergency Medicine; Visit Provider Emergency Medicine
DX: L03.115 Cellulitis of right lower limb (principal); A41.9 Sepsis, unspecified organism; E66.01 Morbid (severe) obesity due to excess calories; Z68.41 Body mass index [BMI] 40.0-44.9, adult; Z86.711 Personal history of pulmonary embolism
CPT/HCPCS: 71045; 80048; 80076; 81001; 83605; 85025; 85610; 85730; 87040; 87077; 87086; 87088; 87186; 87428; 96365; 96375; 99283; J7050; A4216

== ENCOUNTER 2021-12-29 16:57 | Inpatient (IN) | payer SELFPAY ==
[2021-12-29 16:59] VITALS: BP 151/73; PULSE 146; RESP 27; TEMP 38.3; O2SAT 93; BMI 58.2
[2021-12-29 18:24] VITALS: BP 123/73; PULSE 94; RESP 17; TEMP 36.8; O2SAT 98
--- NOTE | 2021-12-29 18:37 | EKG12_ITS ---
Test Reason : DYSRHYTHMIA Blood Pressure : / mmHG Vent. Rate : 130 BPM Atrial Rate : 130 BPM P-R Int : 146 ms QRS Dur : 086 ms QT Int : 304 ms P-R-T Axes : 061 059 033 degrees QTc Int : 447 ms Sinus tachycardia Low voltage QRS (Limb Leads) Poor R wave progression Confirmed by FELICE RAMSEY, ODIN ([id number]), avid editor CAT OSWALD ([id number]) on 01/01/2022 7:53:09 AM Referred By: BERENICE Confirmed By:ODIN VIVEROS MD
--- NOTE | 2021-12-29 18:38 | EX.ED.DYSGE1 ---
HPI History of Present Illness Chief Complaint: Shortness of Breath Narrative Narrative: 86-year-old male presenting with body aches, chills, fever. He states it all started today. He was out shopping with his and then over the course of the day he noted that he had body aches that started in his legs and ascended up his body. He did not have a temperature higher than 100 Fahrenheit at home. He has generalized fatigue. He does feel mildly dyspneic. He is not having chest pain. He states he has no significant medical history except that a month ago he had similar symptoms and had a leukocytosis of 30,000. He did not want to stay at that time and was put on antibiotics for home. Patient also states that he has a recurrent cellulitis that flares up on the right proximal thigh every time he gets sick. He is not sure if this is the cause. He followed up with his PCP who rechecked his blood work at his CBC had gone down to 21,000. On recheck again it was down to 10,000 the patient had been feeling well until today. [facility] Medical History Asthma Cellulitis Empyema of left pleural space Multiple pulmonary emboli suspected hypercoagulable disorder Home Medications NK 12/29/21 [History Last Taken Unknown] Allergy/AdvReac Type Severity Reaction Status Date / Time hydrocodone [From [place]] AdvReac Upset Verified 12/29/21 17:04 Stomach Family History Other Diabetes Obesity Social History Smoking Status: Never smoker Smokeless tobacco user: chewing tobacco substance use type: does not use ROS ROS ED Constitutional Constitutional ED: Reports chills and fever(s) Eyes Eyes: Denies change in vision or diplopia ENT ENT ED: Denies rhinorrhea or sore throat Cardiovascular Cardiovascular: Reports palpitations Respiratory/Chest Respiratory/Chest: Reports cough and dyspnea Gastrointestinal Gastrointestinal: Denies abdominal pain, nausea or vomiting Genitourinary Genitourinary ED: Denies dysuria or hematuria Musculoskeletal Musculoskeletal: Reports myalgias; Denies neck pain Integumentary Denies abscess Neurologic Neurologic: Reports headache(s); Denies paresthesias or weakness Psychiatric Psychiatric: Denies anxiety or depression EXAM Physical Exam Const Vital Signs: 12/29/21 16:59 12/29/21 18:24 12/29/21 18:24 Temperature 100.9 F H 98.2 F Temperature Source Temporal Temporal Pulse Rate 146 H 94 Respiratory Rate 27 H 17 Respiratory Effort Short of Breath Blood Pressure 151/73 H 123/73 H Blood Pressure Mean 99 89 Pulse Ox 93 98 Oxygen Delivery Method Room Air Room Air 12/29/21 18:46 12/29/21 18:46 12/29/21 18:46 Temperature 99 F Temperature Source Temporal Pulse Rate 135 H Respiratory Rate 23 H Respiratory Effort Blood Pressure 149/123 H Blood Pressure Mean 131 Pulse Ox 95 95 Oxygen Delivery Method Room Air Room Air Positive well nourished and obese General Appearance ED: NAD; Negative for pallor Nutritional Appearance: obese HEENT Reports moist mucous membranes Negative for trauma Eyes PERRL and EOMs intact bilaterally Chest Wall inspection of chest normal Resp normal respiratory effort and clear to auscultation bilaterally Auscultation: Negative for rales, rhonchi or wheezes Cardio regular rhythm Rate: tachycardic GI normal to inspection, nondistended, normoactive bowel sounds Neuro oriented x3 and CN's II-XII intact bilaterally Sensorium / Orientation: alert Psych mental status grossly normal Skin Skin Narrative: Increased erythema, warmth over the right inner proximal thigh. Without crepitance. This does extend over the proximal calf and is only on the medial aspect.. There does not appear to be any fluctuance. There is a surgical scar on the medial thigh in the center of the area of erythema on the thigh. General Skin Exam: Negative for jaundice or pallor MDM MDM MDM Narrative Medical decision making narrative: Patient initially presented with tachycardia with a heart rate of 146, respiratory 27, fever 100.9. On my evaluation his vital signs have all fairly well normalized. He does state that he had a 30,000 white count a month ago and was treated with Keflex that he improved. Given his abnormal vital signs and his history I will do a sepsis work-up. Patient again has a 30.5 white count. He has a left shift as well. Hemoglobin hematocrit are stable. Coagulation studies normal. Renal function and electrolytes are normal. Lactic acid within normal limits urinalysis negative for infection. Patient does have a area of cellulitis on the right proximal thigh which she states always occurs when he is sick which may be the source of his leukocytosis. He does state that this is recurrent. He states his PCP believes this is likely source of his recurrent symptoms as well. Patient given a dose of IV Unasyn and another liter of IV fluids as he still tachycardic at 120. It does look like he has a history of MRSA so he was given a dose of vancomycin in the ER. His fever is down to 99 Fahrenheit. I spoke with the hospitalist for admission. Impression: 1. Right leg cellulitis 2. Leukocytosis 3. Febrile illness 4. Tachycardia Lab Data Attestation: I reviewed the patient's lab results. Labs: Laboratory Results - last 24 hr 12/29/21 12/29/21 12/29/21 18:40 18:40 18:40 WBC 30.5 H* RBC 5.40 Hgb 15.6 Hct 47.4 MCV 87.8 MCH 28.9 MCHC 32.9 RDW Std Deviation 43.5 RDW Coeff of Annalisa 13.5 Plt Count 318 MPV 9.4 Immature Gran % (Auto) 1.000 H Neut % (Auto) 90.4 H Lymph % (Auto) 3.8 L [place] % (Auto) 4.3 Eos % (Auto) 0.2 Baso % (Auto) 0.3 Absolute Neuts (auto) 27.6 H Absolute Lymphs (auto) 1.16 Nucleated RBC % 0 Differential Comment SCANNED Diff Path Review May foll PT 13.5 INR 1.1 APTT 31.1 Sodium 136 Potassium 4.1 Chloride 103 Carbon Dioxide 26.0 Anion Gap 7 BUN 15 Creatinine 0.91 Estim Creat Clear Calc 121.82 Est GFR (MDRD) Af Amer 123 Est GFR (MDRD) Non-Af 102 BUN/Creatinine Ratio 16.6 Glucose 124 H Lactic Acid Calcium 10.0 Total Bilirubin 0.50 AST 27 ALT 66 H Alkaline Phosphatase 79 Troponin I High Sens 6 Total Protein 7.6 Albumin 3.4 Globulin 4.2 Albumin/Globulin Ratio 0.8 L Urine Color Urine Clarity Urine pH Ur Specific [place] Urine Protein Urine Glucose (UA) Urine Ketones Urine Occult Blood Urine Nitrite Urine Bilirubin Urine Urobilinogen Ur Leukocyte Esterase Urine RBC Urine WBC Ur Squamous Epith Cells Urine Bacteria Urine Mucus 12/29/21 12/29/21 18:40 19:08 WBC RBC Hgb Hct MCV MCH MCHC RDW Std Deviation RDW Coeff of Annalisa Plt Count MPV Immature Gran % (Auto) Neut % (Auto) Lymph % (Auto) [place] % (Auto) Eos % (Auto) Baso % (Auto) Absolute Neuts (auto) Absolute Lymphs (auto) Nucleated RBC % Differential Comment Diff Path Review PT INR APTT Sodium Potassium Chloride Carbon Dioxide Anion Gap BUN Creatinine Estim Creat Clear Calc Est GFR (MDRD) Af Amer Est GFR (MDRD) Non-Af BUN/Creatinine Ratio Glucose Lactic Acid 1.6 Calcium Total Bilirubin AST ALT Alkaline Phosphatase Troponin I High Sens Total Protein Albumin Globulin Albumin/Globulin Ratio Urine Color Yellow Urine Clarity Clear Urine pH 6.0 Ur Specific [place] 1.020 Urine Protein 30 H Urine Glucose (UA) Normal Urine Ketones 5 H Urine Occult Blood Negative Urine Nitrite Negative Urine Bilirubin Negative Urine Urobilinogen Normal Ur Leukocyte Esterase 25 H Urine RBC 0 SEEN Urine WBC 5-10 SEEN Ur Squamous Epith Cells 0-5 SEEN Urine Bacteria 1+ Urine Mucus 1+ Radiography Diagnostic Testing: Clinical Impression(s) from Imaging Studies Chest X-Ray 12/29/21 18:44 IMPRESSION: Nonacute portable x-ray examination of the chest. Electronically Signed: Elias Woods MD ([place]) at 19:08 EDT , Chest CTA 12/29/21 18:57 IMPRESSION: No central or obvious segmental pulmonary embolism. Limited evaluation of segmental pulmonary arteries. Electronically Signed: Eilas Woods MD ([place]) at 20:11 EDT , Discharge Plan Triage Chief Complaint: Shortness of Breath ED Provider: Chun Jimenes Dx/Rx/DC Orders Prescriptions: No Action NK Primary Care Provider: Care Physician,No Primary Referrals: Care Physician,No Primary [Primary Care Provider] -
--- NOTE | 2021-12-29 18:44 | RAD_ITS ---
STUDY: X-RAY CHEST REASON FOR EXAM: Male, 36 years old. SHORTNESS OF BREATH, DIZZINESS, AND WEAKNESS STARTED TODAY. WAS SEEN LAST MONTH FOR ELEVATED WBC WITH NO SPECIFIC ORIGIN. TECHNIQUE: AP COMPARISON: None. FINDINGS: EKG leads project over the chest. There are interstitial fibrotic changes of the lungs. There is no demonstrated pleural abnormality. Normal size heart. Normal mediastinum and cuca. Normal visualized pulmonary arteries. Normal visualized aortic arch and descending thoracic aorta. No acute bony process. There is no demonstrated abnormality of the visualized soft tissue structures of the upper abdomen. RAD/Chest 1 View (Portable) IMPRESSION: Nonacute portable x-ray examination of the chest. Electronically Signed: Elias Woods MD ([place]) at 19:08 EDT ,
[2021-12-29 18:46] VITALS: BP 149/123; PULSE 135; RESP 23; TEMP 37.2; O2SAT 95
[2021-12-29 18:53] LABS: Absolute Lymphocyte Count 1.16 X10^3/uL (0.83-4.51); Absolute Neutrophil Count 27.6 X10^3/uL (2.0-7.7); Basophil% 0.3 % (0-1); Eosinophil# 0.07 X10^3/uL; Eosinophils% 0.2 % (0-5); Hematocrit 47.4 % (40-54); Hemoglobin 15.6 g/dL (13.0-16.5); Lymphocyte # 1.16 X10^3/ul (0.83-4.51); Lymphocyte % 3.8 % (19-41); Mean Corp Hgb Conc 32.9 g/dL (32-36); Mean Corpuscular Hgb 28.9 pg (27.0-32.0); Mean Corpuscular Volume 87.8 fL (80-94); Mean Platelet Vol. 9.4 fl (6.2-12.0); Monocyte% 4.3 % (0-10); NRBC Flagged by Analyzer 0 % (0-5); Neutrophil # 27.57 X10^3/uL (2.7-7.7); Neutrophil % 90.4 % (47-70); POSITIVE COUNT YES; POSITIVE DIFFERENTIAL YES; Platelet Count 318 K/mm3 (150-450); RBC Distribution Width CV 13.5 % (11.6-14.6); RBC Distribution Width SD 43.5 fl (35.1-43.9)
--- NOTE | 2021-12-29 18:57 | CT_ITS ---
STUDY: CTA CHEST REASON FOR EXAM: Male, 36 years old. chest pain RADIATION DOSAGE (If Supplied By Facility): CTDIvol = ( 23.24 ) mGy, DLP = ( 1586.05 ) mGycm TECHNIQUE: The examination was performed with the intravenous administration of IV 100mL [id number]-370. Post-processing of the angiographic images was performed, with multiplanar reformation and 3D reconstruction. Individualized dose optimization techniques were used for this CT. COMPARISON: 01/12/2017 FINDINGS: Normal enhancement of the main pulmonary artery and right and left pulmonary arteries. There is limited enhancement of the bilateral peripheral pulmonary arteries. There is no demonstrated pulmonary embolism. Normal thoracic aorta and visualized great vessels. There is no demonstrated aortic dissection. Normal heart and pericardium. Normal mediastinum. Normal hilar regions. Normal visualized trachea and bronchi. The lungs are well expanded. Fibrotic scarring in the lateral left lung base is stable since 2017. Normal pleura. Normal chest wall structures. There are degenerative changes of thoracic spine. Normal visualized upper abdomen. CT/CTA Chest W/WO Contrast IMPRESSION: No central or obvious segmental pulmonary embolism. Limited evaluation of segmental pulmonary arteries. Electronically Signed: Elais Woods MD ([place]) at 20:11 EDT Reading Location ID and State: [facility] / [place] , Service support ,
[2021-12-29 19:11] LABS: Red Blood Cells-Urine 0 SEEN /hpf (0-5)
[2021-12-29] MEDS: Ondansetron 4 MG/2 ML Vial IV (19:14)
[2021-12-29] MEDS: 0.9% Normal Saline 1,000 ML 999 ML IV ×2 (19:14→23:48)
[2021-12-29 19:17] LABS: Color, Urine Yellow (Yellow); Glucose, Dipstick Normal (Normal); Ketone-Dipstick 5 mg/dl (Negative); Leukocyte Esterase-Dipstick 25 /ul (Negative); Nitrite-Dipstick Negative (Negative); Occult Blood-Urine Negative /ul (Negative); Protein-Dipstick 30 mg/dl (Negative); Urine Bilirubin Dipstick Negative (Negative); Urine Clarity Clear (Clear); Urine Urobilinogen Normal (Normal)
[2021-12-29 19:18] LABS: Differential Indicated SCAN CRITERIA MET; White Blood Count 30.5 K/mm3 (4.4-11.0)
[2021-12-29 19:19] LABS: International Normalized Ratio 1.1; Prothrombin Time (Protime)PT. 13.5 SECONDS (11.7-14.9)
[2021-12-29 19:20] LABS: Partial Thromboplast Time 31.1 Seconds (24.1-36.2)
[2021-12-29 19:27] LABS: Bacteria 1+ /hpf (None Seen); Mucous, Urine 1+ /hpf (<or=2+); Squamous Epithelial Cells - UA 0-5 SEEN /hpf (0-5); White Blood Cells 5-10 SEEN /hpf (0-5)
[2021-12-29 19:34] LABS: ALB/GLOB Ratio 0.8 RATIO (0.9-2.4); AST(SGOT) 27 U/L (15-37); Alanine Aminotransfer ALT/SGPT 66 U/L (16-61); Albumin, Serum 3.4 g/dL (3.2-5.0); Alkaline Phosphatase 79 U/L (45-117); Anion Gap 7 (5-15); BUN 15 mg/dL (7-18); BUN/Creat Ratio 16.6 RATIO (10-20); Chloride 103 mmol/L (98-107); Creatinine, Serum 0.91 mg/dL (0.70-1.30); EST Glomerular Filtration Rate 102 mL/min (>60); Est Glom Filt Rate - Afr Amer 123 mL/min (>60); Estimated Creatinine Clearance 121.82 ml/min; Globulin 4.2 g/dL (2.2-4.2); Glucose 124 mg/dL (74-106); Potassium 4.1 mmol/L (3.5-5.1); Protein, Total 7.6 g/dL (6.4-8.2); Sodium Level 136 mmol/L (136-145); Troponin-I HS 6 pg/mL (3.0-78.0)
[2021-12-29 19:37] VITALS: BP 135/76; PULSE 117; RESP 18; TEMP 37.2; O2SAT 95
[2021-12-29] MEDS: Ketorolac 15 MG/ML Vial IV (19:49)
[2021-12-29 19:55] LABS: Lactic Acid 1.6 mmol/L (0.4-1.9)
[2021-12-29 19:58] LABS: Differential Comment SCANNED
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
--- NOTE | 2021-12-29 22:36 | VDLE_ITS ---
Reason For Study: Pain RIGHT GSV is normal. CFV is compressible, spontaneous, phasic, competent and demonstrates normal augmentation. FV is compressible, spontaneous, phasic, competent and demonstrates normal augmentation. POP V is compressible, spontaneous, phasic, competent and demonstrates normal augmentation. T/P Trunk is compressible. PTV is compressible. RT PerV is compressible. Procedure This is a venous duplex using B-mode, color flow and spectral Doppler. Exam performed portable in patient room. A preliminary report was called and/or faxed to [facility]. VL/Venous Duplex US, Unilateral Interpretation Summary There is no evidence of right lower extremity deep vein thrombosis. Right great saphenous vein appears patent and compressible segmentally. Ordering Physician: Parul Livingston Performed By: Angela Santoro RVT
[2021-12-29 23:37] VITALS: BMI 58.4
[2021-12-29 23:47] VITALS: BP 154/89; PULSE 112; RESP 24; TEMP 36.9; O2SAT 99
[2021-12-29] MEDS: oxyCODONE 5 MG Tablet PO (23:48)
[2021-12-29] MEDS: Enoxaparin 40 MG/0.4 ML Syringe SC (23:49)
[2021-12-30] VITALS (11 sets, daily range): BP systolic 131–147; BP diastolic 70–87; PULSE 94–116; RESP 18; TEMP 36.6; O2SAT 94–99
--- NOTE | 2021-12-30 00:17 | PCM.RX.CS ---
Consult Pharmacy has been consulted to manage selected antiobiotic: Vancomycin Type of Consult: New start Suspected Infection: Skin/Soft tissue Labs: Sodium 136 mmol/L (136-145) 12/29/21 18:40 Potassium 4.1 mmol/L (3.5-5.1) 12/29/21 18:40 Chloride 103 mmol/L (98-107) 12/29/21 18:40 Carbon Dioxide 26.0 mmol/L (21.0-32.0) 12/29/21 18:40 Anion Gap 7 (5-15) 12/29/21 18:40 BUN 15 mg/dL (7-18) 12/29/21 18:40 Creatinine 0.91 mg/dL (0.70-1.30) 12/29/21 18:40 Est GFR (MDRD) Af Amer 123 mL/min (>60) 12/29/21 18:40 Est GFR (MDRD) Non-Af 102 mL/min (>60) 12/29/21 18:40 BUN/Creatinine Ratio 16.6 RATIO (10-20) 12/29/21 18:40 Glucose 124 mg/dL (74-106) H 12/29/21 18:40 Microbiology: Microbiology 12/29/21 18:51 Nasal Secretion SARS-CoV-2 Antigen (Rapid) - Final Weight used for dosin.4 kg Estimated Creatinine Clearance: 121.8 Goal Trough: 15-20 mcg/mL Pharmacy Plan for Drug Dosing: Pharmacy Service will continue to monitor and adjust dosing as required. Medications Vancomycin HCl 2,000 mg/ (Sodium Chloride) 540 mls @ 250 mls/hr IV X1 ONE Stop: 12/30/21 01:39 Last Admin: 12/29/21 23:48 Dose: 250 mls/hr Vancomycin HCl 1,500 mg/ (Sodium Chloride) 530 mls @ 250 mls/hr IV Q8H [facility] Follow-Up Labs: Trough Vancomycin Labs to be done on [date and time ordered]: 12/30 @ 8430
[2021-12-30] MEDS: Acetaminophen 325 MG Tablet 650 MG PO ×2 (00:55→08:19)
[2021-12-30] MEDS: 0.9% Normal Saline 1,000 ML 125 ML IV ×2 (00:55→08:19)
[2021-12-30] MEDS: oxyCODONE 5 MG Tablet PO ×2 (06:05→20:31)
[2021-12-30 06:08] LABS: Absolute Lymphocyte Count 1.62 X10^3/uL (0.83-4.51); Absolute Neutrophil Count 23.5 X10^3/uL (2.0-7.7); Basophil% 0.4 % (0-1); Eosinophil# 0.01 X10^3/uL; Hematocrit 44.5 % (40-54); Hemoglobin 14.7 g/dL (13.0-16.5); Lymphocyte # 1.62 X10^3/ul (0.83-4.51); Lymphocyte % 6.2 % (19-41); Mean Corpuscular Hgb 29.8 pg (27.0-32.0); Mean Corpuscular Volume 90.3 fL (80-94); Mean Platelet Vol. 9.8 fl (6.2-12.0); Monocyte# 0.96 X10^3/uL; Monocyte% 3.7 % (0-10); NRBC Flagged by Analyzer 0 % (0-5); Neutrophil # 23.45 X10^3/uL (2.7-7.7); Neutrophil % 89.2 % (47-70); POSITIVE DIFFERENTIAL YES; Platelet Count 285 K/mm3 (150-450); RBC Distribution Width SD 46.3 fl (35.1-43.9); Red Blood Count 4.93 M/mm3 (4.6-6.2); White Blood Count 26.3 K/mm3 (4.4-11.0)
[2021-12-30 06:27] LABS: Differential Indicated SCAN CRITERIA MET
[2021-12-30 06:48] LABS: ALB/GLOB Ratio 0.7 RATIO (0.9-2.4); AST(SGOT) 20 U/L (15-37); Alanine Aminotransfer ALT/SGPT 53 U/L (16-61); Albumin, Serum 2.9 g/dL (3.2-5.0); Alkaline Phosphatase 78 U/L (45-117); Anion Gap 7 (5-15); BUN 15 mg/dL (7-18); BUN/Creat Ratio 20.1 RATIO (10-20); Calcium,Total 8.4 mg/dL (8.5-10.1); Chloride 105 mmol/L (98-107); Creatinine, Serum 0.75 mg/dL (0.70-1.30); EST Glomerular Filtration Rate 127 mL/min (>60); Est Glom Filt Rate - Afr Amer 154 mL/min (>60); Estimated Creatinine Clearance 147.81 ml/min; Glucose 103 mg/dL (74-106); Protein, Total 6.9 g/dL (6.4-8.2); Sodium Level 137 mmol/L (136-145)
[2021-12-30 07:12] LABS: Differential Comment SCANNED
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
[2021-12-30] MEDS: Enoxaparin 40 MG/0.4 ML Syringe SC ×2 (11:33→21:39)
[2021-12-31] VITALS (8 sets, daily range): BP systolic 130–154; BP diastolic 77–92; PULSE 87–93; RESP 16–20; TEMP 35.7–36.7; O2SAT 93–97
[2021-12-31 00:20] LABS: Vancomycin, Trough Level 11.3 ug/mL (5.0-15.0)
--- NOTE | 2021-12-31 06:05 | PCM.RX.CS ---
Consult Pharmacy has been consulted to manage selected antiobiotic: Vancomycin Type of Consult: Follow-up Labs: Sodium 137 mmol/L (136-145) 12/30/21 05:05 Potassium 4.0 mmol/L (3.5-5.1) 12/30/21 05:05 Chloride 105 mmol/L (98-107) 12/30/21 05:05 Carbon Dioxide 25.0 mmol/L (21.0-32.0) 12/30/21 05:05 Anion Gap 7 (5-15) 12/30/21 05:05 BUN 15 mg/dL (7-18) 12/30/21 05:05 Creatinine 0.75 mg/dL (0.70-1.30) 12/30/21 05:05 Est GFR (MDRD) Af Amer 154 mL/min (>60) 12/30/21 05:05 Est GFR (MDRD) Non-Af 127 mL/min (>60) 12/30/21 05:05 BUN/Creatinine Ratio 20.1 RATIO (10-20) H 12/30/21 05:05 Glucose 103 mg/dL (74-106) 12/30/21 05:05 Vancomycin Trough 11.3 ug/mL (5.0-15.0) 12/30/21 23:35 Microbiology: Microbiology 12/29/21 18:51 Nasal Secretion SARS-CoV-2 Antigen (Rapid) - Final Goal Trough: 15-20 mcg/mL Pharmacy Plan for Drug Dosing: Pharmacy Service will continue to monitor and adjust dosing as required. TROUGH 11.3 @ 7.5 HRS. INCREASE TO 1750 Q8H AND FOLLOW UP TROUGH PRIOR TO 4TH DOSE Follow-Up Labs: Trough Vancomycin Labs to be done on [date and time ordered]: 01/01 @ 8658
[2021-12-31] MEDS: Acetaminophen 325 MG Tablet 650 MG PO (06:45)
--- NOTE | 2021-12-31 07:50 | PN.HOSP_ITS ---
Subjective Subjective Follow-up on right lower extremity cellulitis: Objective Data Objective Data Vital Signs: Vital Signs Temp Pulse Resp BP Pulse Ox O2 Del Method O2 Flow Rate 98.1 F 88 16 151/92 H 94 Nasal Cannula 2 12/31/21 02:41 12/31/21 04:26 12/31/21 02:41 12/31/21 02:41 12/31/21 02:41 12/31/21 02:41 12/31/21 02:41 Oxygen Flow Rate (L/min) 2 Oxygen Delivery Method Nasal Cannula Weight: 193.4 kg Body Mass Index (BMI) 58.4 Intake & Output: Intake and Output for Last 24 Hours 12/29/21 12/30/21 12/31/21 23:59 23:59 23:59 Intake Total 1112.25 / 1112.25 5825 / 5825 580 / 580 Balance 1112.25 / 1112.25 5825 / 5825 580 / 580 Lab / Micro Data Result Diagrams: 12/30/21 05:05 12/30/21 05:05 Labs: Laboratory Results - last 24 hr 12/30/21 23:35: Vancomycin Trough 11.3 Micro: Microbiology 12/29/21 18:51 Nasal Secretion SARS-CoV-2 Antigen (Rapid) - Final Radiography Diagnostic Testing: Radiology Impression Venous Doppler Study 12/29/21 22:36 Interpretation Summary There is no evidence of right lower extremity deep vein thrombosis. Right great saphenous vein appears patent and compressible segmentally. Ordering Physician: Parul Livingston Performed By: Angela Santoro RVT Physical Exam Narrative Physical exam: General: Alert, Oriented x3, Cooperative, No apparent distress HEENT: Atraumatic Oral: Moist Mucosa Neck: Supple Lungs: Clear to auscultation Cardiovascular: HS I+II, regular, no murmurs Abdomen: Bowel Sounds Present, Soft, Non Tender Extremities: No edema Skin: No rashes, No breakdown Neurological: Grossly intact Psych/Mental Status: Appropriate Assessment & Plan Assessment/Plan (1) Cellulitis: PLAN: Plan The patient is a 36 y/o M with history of MRSA, PE was admitted with right lower extremity cellulitis. #1. Recurrent right lower extremity cellulitis with history of MRSA infectoin: Patient admitted on MedSur floor. Patient has leukocytosis but clinical, radiological features not suggestive of sepsis. Sepsis ruled out. Started on IV vancomycin and Zosyn. Keep RLE elevated. Duplex ultrasound ordered. It seems patient has recurrent cellulitis and ignores her doctors follow-up. He stepped on the glass about 2 to 3 weeks ago and popped with a needle himself. Nonadherent patient. #2. Elevated BP without hypertensive diagnosis: Monitor BP. Will need home BP monitoring/ABPM for diagnosis of hypertension by PCP as an outpatient. Control BP while here #3. History of prior pulmonary embolisms: Family history of throm boembolism/DVT. Patient was on warfarin before following his trauma. #4. Morbid Obesity: Weight loss and lifestyle changes encouraged. #5. Tobacco Abuse: Encouraged to chew tobacco cessation, #6. JULIÁN: Non-compliant with CPAP, may need q HS oxygen to which he is amenable. #7. Chronic asthma: Not on any chronic regimen, will have as needed albuterol, encourage head of bed, I-S. #8. DVT Prophylaxis: SCDs, lovenox.
[2021-12-31] MEDS: Enoxaparin 40 MG/0.4 ML Syringe SC (10:10)
[2021-12-31 10:26] LABS: Absolute Lymphocyte Count 2.45 X10^3/uL (0.83-4.51); Absolute Neutrophil Count 7.2 X10^3/uL (2.0-7.7); Basophil# 0.03 X10^3/uL; Basophil% 0.3 % (0-1); Eosinophil# 0.23 X10^3/uL; Eosinophils% 2.1 % (0-5); Hematocrit 41.5 % (40-54); Hemoglobin 13.3 g/dL (13.0-16.5); Lymphocyte # 2.45 X10^3/ul (0.83-4.51); Lymphocyte % 22.6 % (19-41); Mean Corpuscular Hgb 28.7 pg (27.0-32.0); Mean Corpuscular Volume 89.6 fL (80-94); Mean Platelet Vol. 9.6 fl (6.2-12.0); Monocyte# 0.92 X10^3/uL; Monocyte% 8.5 % (0-10); NRBC Flagged by Analyzer 0 % (0-5); Neutrophil # 7.21 X10^3/uL (2.7-7.7); Neutrophil % 66.3 % (47-70); Platelet Count 233 K/mm3 (150-450); RBC Distribution Width CV 13.8 % (11.6-14.6); RBC Distribution Width SD 45.3 fl (35.1-43.9); Red Blood Count 4.63 M/mm3 (4.6-6.2); White Blood Count 10.9 K/mm3 (4.4-11.0)
--- NOTE | 2021-12-31 10:26 | HP.PCM.HOS_ITS ---
[facility] - General General Date of Admission: 12/29/21 Date of Service: 12/31/21 Chief Complaint: Fever, chills, body aches, RLE recurrent erythema. HPI Wyatt DURHAM, is a 36 M who presents [facility] Medical History Asthma Chewing tobacco nicotine dependence COVID-19 Empyema of left pleural space Morbid obesity with BMI of 40.0-44.9, adult Multiple pulmonary emboli JULIÁN (obstructive sleep apnea) suspected hypercoagulable disorder Home Medications cephalexin 500 mg capsule 500 mg PO Q6H 5 days #20 caps 12/31/21 [Rx Last Taken Unknown] Allergy/AdvReac Type Severity Reaction Status Date / Time hydrocodone [From [place]] AdvReac Upset Verified 12/29/21 23:20 Stomach Family History (Updated 12/29/21 @ 22:[address] Parul Livingston MD) Mother Diabetes Father Hypercoagulable state Surgical History (Updated 12/29/21 @ 23:28 by Aissatou Perdomo) History of surgery on lower extremity S/P chest tube placement S/P pericardial window creation Social History (Updated 12/29/21 @ 22:[address] Parul Livingston MD) household members: spouse Smoking Status: Never smoker Smokeless tobacco user: chewing tobacco and other alcohol intake: never substance use type: does not use Vital Signs Vital Signs Vital Signs: 12/30/21 12:56 12/30/21 16:00 12/30/21 15:46 Temperature 98 F Temperature Source Oral Pulse Rate 107 H 103 H 106 H Pulse Strength Respiratory Rate 18 Respiratory Effort Blood Pressure 147/87 H Blood Pressure Mean 107 Blood Pressure Source Monitor Blood Pressure Position Semi-Fowlers Blood Pressure Location Left Forearm Pulse Ox 99 Oxygen Delivery Method Room Air Oxygen Flow Rate (L/min) 12/30/21 16:00 12/30/21 21:00 12/30/21 22:00 Temperature 97.8 F Temperature Source Temporal Pulse Rate 103 H 99 Pulse Strength Normal (2+) Respiratory Rate 18 Respiratory Effort Blood Pressure 131/86 H Blood Pressure Mean 101 Blood Pressure Source Monitor Blood Pressure Position Semi-Fowlers Blood Pressure Location Left Forearm Pulse Ox 97 Oxygen Delivery Method Room Air Oxygen Flow Rate (L/min) 12/30/21 21:00 12/30/21 20:09 12/31/21 00:00 Temperature Temperature Source Pulse Rate 100 91 Pulse Strength Respiratory Rate Respiratory Effort Normal Non-Labored Blood Pressure Blood Pressure Mean Blood Pressure Source Blood Pressure Position Blood Pressure Location Pulse Ox Oxygen Delivery Method Room Air Oxygen Flow Rate (L/min) 12/31/21 02:41 12/31/21 04:26 12/31/21 07:30 Temperature 98.1 F Temperature Source Temporal Pulse Rate 92 88 87 Pulse Strength Respiratory Rate 16 Respiratory Effort Blood Pressure 151/92 H Blood Pressure Mean 111 Blood Pressure Source Monitor Blood Pressure Position Semi-Fowlers Blood Pressure Location Left Forearm Pulse Ox 94 Oxygen Delivery Method Nasal Cannula Oxygen Flow Rate (L/min) 2 12/31/21 08:41 Temperature 96.3 F L Temperature Source Temporal Pulse Rate 89 Pulse Strength Respiratory Rate 18 Respiratory Effort Blood Pressure 130/77 H Blood Pressure Mean 94 Blood Pressure Source Monitor Blood Pressure Position Semi-Fowlers Blood Pressure Location Left Forearm Pulse Ox 96 Oxygen Delivery Method Room Air Oxygen Flow Rate (L/min) Weight Weight: 193.4 kg Body Mass Index (BMI) 58.4 Results Lab / Micro Data Result Diagrams: 12/30/21 05:05 12/30/21 05:05 Labs: Laboratory Results - last 24 hr 12/30/21 23:35: Vancomycin Trough 11.3 Micro: Microbiology 12/29/21 19:08 Urine, Clean Catch Urine Culture - Final Mixed Gram Positive Organisms Radiology Impression Venous Doppler Study 12/29/21 22:36 Interpretation Summary There is no evidence of right lower extremity deep vein thrombosis. Right great saphenous vein appears patent and compressible segmentally. Ordering Physician: Parul Livingston Performed By: Angela Santoro RVT
--- NOTE | 2021-12-31 10:36 | CASEMGMT ---
TRANG FIGUEROA Assessment: Face to Face with pt for initial transition planning/care coordination assessment. RN HENRY introduced self and role at [facility], pt voices understanding and consents to assessment. Pt is A/O x4 and answers all questions appropriately at this time. Pt sitting up in chair in no distress. Care providers, pharmacy, and demographics verified/updated. Admitting Dx: cellulitis, recurrent PCP:Pt sees Jason Whatley PA-C in [place] Specialists:Pt denies. Preferred Pharmacy: [facility] Insurance: Self pay- Pt states he recently lost his job, notified SW. Prescription Benefit: no LW/HPOA: Pt denies having a LW/DPOA and denies need for info regarding AD. LNOK: Cheryl Rossi, mother; Kathy Baker, sig other Living Arrangements: Pt lives with sig other and 3 children in a mobile home with 4 steps to enter without a rail. Pt reports he is I in ADL's and denies concerns at home. Transportation: Pt drives self and denies concerns with transportation. DME/HHC/SNF: Pt denies having any DME. Pt states he does not have a CPAP and does not know if he is supposed to wear one. Pt denies hx of HHC or SNF stays. Pt states no concerns with going home at time of dc. Pt states no further concerns/needs. CM to follow. Advised pt to ask CM if any further question/concerns/needs arise, voices understanding. Pt Goal: Home Plan: Home, referral to [facility].
[2021-12-31 10:41] LABS: ALB/GLOB Ratio 0.7 RATIO (0.9-2.4); AST(SGOT) 14 U/L (15-37); Alanine Aminotransfer ALT/SGPT 43 U/L (16-61); Albumin, Serum 2.7 g/dL (3.2-5.0); Alkaline Phosphatase 62 U/L (45-117); Anion Gap 4 (5-15); BUN 11 mg/dL (7-18); BUN/Creat Ratio 13.4 RATIO (10-20); Chloride 104 mmol/L (98-107); Creatinine, Serum 0.82 mg/dL (0.70-1.30); EST Glomerular Filtration Rate 114 mL/min (>60); Est Glom Filt Rate - Afr Amer 138 mL/min (>60); Estimated Creatinine Clearance 135.19 ml/min; Globulin 4.1 g/dL (2.2-4.2); Glucose 130 mg/dL (74-106); Protein, Total 6.8 g/dL (6.4-8.2); Sodium Level 138 mmol/L (136-145)
--- NOTE | 2021-12-31 11:18 | CASEMGMT ---
Addendum entered by Alyssa Cox 01/01/22 10:08: Sw received Medicaid application this morning. VANNA faxed the application to [facility]. IVORY Goodman Original Note: Social Work Sw in to see pt for self pay resources. Pt refused free clinic and prescription assistance payment information but did accept medicaid application. informed pt he can fill out application and it can be faxed from [facility]. Pt agreeable and requested a pen. Pt stated he would give application to nurse to return to when finished. IVORY Goodman
--- NOTE | 2021-12-31 12:39 | DCINST_ITS ---
Discharge Instructions Diet Discharge Diet: No restrictions Activity Discharge Activity: Return to Normal Activity Follow Up Care Test Results: Test results from this visit will be discussed in further detail at your follow- up appointment, if applicable. Discharge Plan Admission Admit Date/Time: 12/29/21 22:32 Primary Reason for Your Visit: Acute RLE cellulitis Attending Provider: Varsha Grissom Consulting Providers: Parul Livingston ; Mayo Dickinson Instructions Additional Instructions / Restrictions: Complete your antibiotics Follow-up with your PCP within 1 week. Discharge Orders/Prescriptions Prescriptions: New cephalexin 500 mg capsule 500 mg PO Q6H 5 Days Qty: 20 0RF Discontinued erythromycin 5 mg/gram (0.5 %) ointment 1 inch EACH EYE QHS Label Comments: INSTILL OINTMENT INTO EACH EYE NIGHTLY Referrals / Follow Up: Care Physician,No Primary [Non-Staff] - Disposition Disposition (needs filled in before D/C Order can be placed): Home, Self Care
--- NOTE | 2021-12-31 12:40 | PCM.DC.SUM ---
Providers Date of Admission: 12/29/21 Date of Discharge: 12/31/21 Reason For Visit: CELLULITIS, RECURRENT Diagnosis Discharge Diagnosis (1) Cellulitis: Status: Acute Code(s): L03.90 - Cellulitis, unspecified Medications at Discharge Home Medications cephalexin 500 mg capsule 500 mg PO Q6H 5 days #20 caps 12/31/21 Hospital Course Operations None Procedures None and - Summary of Care Provided Minutes Spent on Discharge: 40 Hospital Course: 36-year-old male with past medical history of morbid obesity, JULIÁN, noncompliant with CPAP, history of right lower extremity cellulitis who comes in with fever, chills, right lower extremity cellulitis. Patient stated this is the second time this year that he is having cellulitis. He has history of recurrent cellulitis. In the ED, he had a temperature of 100 point 9F. His vitals however were stable. WBC count was 30.5. Patient was admitted to the Medr floor, IV antibiotics were continued. He continued to improve generally. No acute event during his hospital stay. He was discharged on 2 more days of Keflex making a total of 1 week of antibiotics. He was highly recommended to follow-up with weight loss clinic as well as possibly seeing vascular surgery for lymphedema management. Patient stated that he had compression stockings at home. He would need to wear these regularly at work. He will need to follow-up with his primary care doctor within 1 week. Physical Exam Narrative Physical exam: General: Alert, Oriented x3, Cooperative, super morbidly obese HEENT: Atraumatic Oral: Moist Mucosa Neck: Supple Lungs: Clear to auscultation Cardiovascular: HS I+II, regular, no murmurs Abdomen: Bowel Sounds Present, Soft, Non Tender Extremities: Bilateral leg edema trace, differential warmth to right lower extremity improved, erythema much improved, no erythema within the borders as outlined. Skin: No rashes, No breakdown Neurological: Grossly intact Psych/Mental Status: Appropriate Weight / BMI Weight Weight: 193.4 kg Body Mass Index (BMI) 58.4 ABG / Lab / Microbiology Data Result Diagrams: 12/31/21 10:00 12/31/21 10:00 Laboratory: Laboratory Results - last 24 hr 12/30/21 23:35: Vancomycin Trough 11.3 12/31/21 10:00: WBC 10.9, RBC 4.63, Hgb 13.3, Hct 41.5, MCV 89.6, MCH 28.7, MCHC 32.0, RDW Std Deviation 45.3 H, RDW Coeff of Annalisa 13.8, Plt Count 233, MPV 9.6, Immature Gran % (Auto) 0.200, Neut % (Auto) 66.3, Lymph % (Auto) 22.6, [place] % (Auto) 8.5, Eos % (Auto) 2.1, Baso % (Auto) 0.3, Absolute Neuts (auto) 7.2, Absolute Lymphs (auto) 2.45, Nucleated RBC % 0 12/31/21 10:00: Sodium 138, Potassium 4.0, Chloride 104, Carbon Dioxide 30.0, Anion Gap 4 L, BUN 11, Creatinine 0.82, Estim Creat Clear Calc 135.19, Est GFR (MDRD) Af Amer 138, Est GFR (MDRD) Non-Af 114, BUN/Creatinine Ratio 13.4, Glucose 130 H, Calcium 9.0, Total Bilirubin 0.30, AST 14 L, ALT 43, Alkaline Phosphatase 62, Total Protein 6.8, Albumin 2.7 L, Globulin 4.1, Albumin/Globulin Ratio 0.7 L Microbiology: Microbiology 12/29/21 19:08 Urine, Clean Catch Urine Culture - Final Mixed Gram Positive Organisms 12/29/21 18:51 Nasal Secretion SARS-CoV-2 Antigen (Rapid) - Final Radiography Diagnostic Testing: Radiology Impression Venous Doppler Study 12/29/21 22:36 Interpretation Summary There is no evidence of right lower extremity deep vein thrombosis. Right great saphenous vein appears patent and compressible segmentally. Ordering Physician: Parul iLvingston Performed By: Angela Santoro RVT D/C Instructions Discharge Diet: No restrictions Meaningful Use Info Meaningful Use Diagnoses (Choose all that apply): None applicable Discharge Plan Admission Admit Date/Time: 12/29/21 22:32 Primary Reason for Your Visit: Acute RLE cellulitis Attending Provider: Varsha Grissom Consulting Providers: Parul Livingston ; Mayo Dickinson Instructions Additional Instructions / Restrictions: Complete your antibiotics Follow-up with your PCP within 1 week. Discharge Orders/Prescriptions Prescriptions: New cephalexin 500 mg capsule 500 mg PO Q6H 5 Days Qty: 20 0RF Discontinued erythromycin 5 mg/gram (0.5 %) ointment 1 inch EACH EYE QHS Label Comments: INSTILL OINTMENT INTO EACH EYE NIGHTLY Referrals / Follow Up: Care Physician,No Primary [Non-Staff] - Disposition Disposition (needs filled in before D/C Order can be placed): Home, Self Care Charges/Coding Visit Charges Inpatient E&M: 15295 Disch Hosp
[2021-12-31] MEDS: oxyCODONE 5 MG Tablet PO (14:14)
[2021-12-31 15:34] LABS: Pathologist Review Reviewed
== END 2021-12-31 15:30 | disposition home or self-care (01) | DRG 603 ==
LOC: ED 19:34 → MS3 22:43
PROVIDERS: Admitting Provider Family Medicine; Emergency Provider Student in an Organized Health Care Education/Training Program; Visit Provider Internal Medicine
DX: L03.115 Cellulitis of right lower limb (principal); Z68.43 Body mass index [BMI] 50.0-59.9, adult; E66.01 Morbid (severe) obesity due to excess calories; G47.33 Obstructive sleep apnea (adult) (pediatric); J45.909 Unspecified asthma, uncomplicated; Z86.16 Personal history of COVID-19; R03.0 Elevated blood-pressure reading, without diagnosis of hypertension; Z86.14 Personal history of Methicillin resistant Staphylococcus aureus infection; Z91.19 Patient's noncompliance with other medical treatment and regimen; Z86.711 Personal history of pulmonary embolism
CPT/HCPCS: 36415; 71045; 71275; 80053; 80202; 81001; 83605; 84484; 85025; 85610; 85730; 87040; 87086; 87088; 87426; 93005; 93971; 99251; 99285; J7030; J7040; J7050; Q9967; A4216; G0463; J0295; J2405

== ENCOUNTER 2022-01-02 21:54 | Emergency (ER) | payer SELFPAY ==
[2022-01-02 21:55] VITALS: BP 140/99; PULSE 102; RESP 16; TEMP 38.7; O2SAT 98; BMI 59.8
--- NOTE | 2022-01-02 22:06 | EDS_ITS ---
HPI History of Present Illness Chief Complaint: Fever Narrative Narrative: 36-year-old male here with concern for fever. Past medical history of asthma, morbid obesity, JULIÁN. Patient states has been feeling worse since his discharge. States he is experiencing fever, cough (productive of green sputum) stuffy runny nose and sores on his mouth. This been going on for the better part of the last week. He thought initially this could be associated with cellulitis. He states his pain in his right leg is stable. He denies any vomiting, diarrhea. Denies any shortness of breath. Denies any sick contacts. Old chart reviewed: Recent ED visit on 12/31/2021 for cellulitis. Noted to have leukocytosis of 30,000 noted cellulitis in the right proximal thigh. Received a dose of IV Unasyn, IV fluids as well as vancomycin. Patient was subsequently admitted. Discharged on 829 on Keflex Noted negative blood cultures from 12/29/2021, urine culture was contaminated [facility] Medical History (Updated 01/03/22 @ 00:[address] Robe Swanson DO) Asthma Chewing tobacco nicotine dependence COVID-19 Empyema of left pleural space Morbid obesity with BMI of 40.0-44.9, adult Multiple pulmonary emboli JULIÁN (obstructive sleep apnea) suspected hypercoagulable disorder Home Medications cephalexin 500 mg capsule 500 mg PO Q6H 5 days #20 caps 12/31/21 [Rx Last Taken Unknown] Allergy/AdvReac Type Severity Reaction Status Date / Time hydrocodone [From [place]] AdvReac Upset Verified 01/02/22 21:55 Stomach Family History (Updated 12/29/21 @ 22:[address] Parul Livingston MD) Mother Diabetes Father Hypercoagulable state Surgical History (Updated 12/29/21 @ 23:28 by Aissatou Perdomo) History of surgery on lower extremity S/P chest tube placement S/P pericardial window creation Social History (Updated 12/29/21 @ 22:[address] Parul Livingston MD) household members: spouse Smoking Status: Never smoker Smokeless tobacco user: chewing tobacco and other alcohol intake: never substance use type: does not use ROS ROS ED Constitutional Constitutional ED: Reports chills and fever(s) Eyes Eyes: Denies other visual disturbances ENT ENT ED: Denies ear pain Cardiovascular Cardiovascular: Denies chest pain Respiratory/Chest Respiratory/Chest: Reports cough and dyspnea Gastrointestinal Gastrointestinal: Denies abdominal pain Genitourinary Genitourinary ED: Denies dysuria Musculoskeletal Musculoskeletal: Denies joint pain Integumentary Denies rash Neurologic Neurologic: Denies dizziness, focal weakness, numbness, syncope or weakness Psychiatric Psychiatric: Denies homicidal ideation or suicidal ideation EXAM Physical Exam Narrative Exam Narrative: Nursing triage notes reviewed, Vital signs reviewed Constitutional: please see mdm HENT: MMM Eyes: Pupils equal round and reactive to light, Extraocular muscles intact Neck: No stridor, no JVD, full neck ROM Lungs: Slight diminished breath sounds on the left, no wheezing or rales. No increased work of breathing, no conversational dyspnea, no accessory muscle use, no nasal flaring. No respiratory distress noted Heart: Regular rate and rhythm, No murmurs, No rubs and No gallops, 2+ distal pulses (radial, femoral, posterior tibial) in all extremities Abdomen: Soft, there is no tenderness, rigidity, rebound or guarding, no obvious peritoneal signs, no palpable pulsatile abdominal masses, no auscultated abdominal bruit : No CVAT, no perineal TTP, crepitus or bullae to suggest Michael's Extremities: No edema, right lower extremity without obvious evidence of cellulitis, no crepitus or bullae noted Neuro: No focal neurological deficits, cranial nerves II through XII intact, 5/5 strength in all extremities. Intact sensation to light touch in all extremities, 2+ reflexes bilateral patella dens. Normal gait. No ataxia. Skin: Some mild erythema noted to the right mid thigh no obvious cellulitic changes noted. Const Vital Signs: 01/02/22 21:55 01/02/22 23:01 01/02/22 23:05 Temperature 101.7 F H 100.2 F H Temperature Source Temporal Temporal Pulse Rate 102 H 109 H Respiratory Rate 16 18 22 H Respiratory Effort Blood Pressure 140/99 H 149/80 H Blood Pressure Mean 112 103 Pulse Ox 98 94 97 Oxygen Delivery Method Room Air Room Air Room Air 01/02/22 23:05 01/02/22 23:07 01/02/22 23:12 Temperature 100.2 F H Temperature Source Temporal Pulse Rate Respiratory Rate Respiratory Effort Normal Blood Pressure Blood Pressure Mean Pulse Ox 94 Oxygen Delivery Method Room Air 01/02/22 23:43 01/03/22 00:00 01/03/22 00:00 Temperature 98.8 F 98.9 F 98.9 F Temperature Source Temporal Temporal Temporal Pulse Rate 112 H Respiratory Rate 17 Respiratory Effort Blood Pressure 140/78 H Blood Pressure Mean 98 Pulse Ox 96 Oxygen Delivery Method Room Air 01/03/22 00:00 01/03/22 00:19 Temperature 98.9 F Temperature Source Temporal Pulse Rate 114 H 103 H Respiratory Rate 24 H Respiratory Effort Blood Pressure 140/78 H Blood Pressure Mean 98 Pulse Ox 98 Oxygen Delivery Method Room Air MDM MDM MDM Narrative Medical decision making narrative: 36-year-old male here with fever, cough in the setting of recent hospitalization for cellulitis currently compliant with Keflex. Exam without obvious focal source of infection. Lungs did have asymmetric sounds as may be secondary to patient's pulmonary emphysema. Did obtain a broad lab and imaging work-up to rule out sources of infection including COVID-19, pneumonia, UTI, worsening cellulitis. Exam without evidence of necrotizing fasciitis, compartment syndrome or other evidence of soft tissue infection. Patient's initial vitals were tachycardic and febrile I did obtain blood cultures started on broad- spectrum antibiotics given recent hospitalization requiring IV antibiotics. I did not start antibiotics immediately given the diagnostic uncertainty of viral versus bacterial infection. Obtained lactate to rule out endorgan hypoperfusion as well as additional blood work for signs of endorgan damage. Labs were remarkable for downtrending leukocytosis which is reassuring. Lactate was unremarkable. Patient was COVID-positive likely source of his fever. No evidence of UTI on UA. Chest x-ray showed no evidence of pneumonia. Patient was ambulated here in the emergency department with satisfactory saturations of 96%. He is appropriate for discharge with diagnosis of mild COVID infection gave strict return precautions and follow-up instructions. Lab Data Lab results narrative: Urinalysis shows no evidence of urinary inflammation suggestive of UTI CBC without leukocytosis, severe anemia, no thrombocytopenia. Leukocytosis downtrending from 10.9 on 01/01/2020-7.8 today CMP without evidence of acute kidney injury, significant electrolyte abnormality, anion gap, no evidence hepatobiliary pathology. Lactate is wnl indicating no end-organ hypoperfusion and/or hypoxia. COVID test is positive Blood, urine cultures are pending Labs: Laboratory Results - last 24 hr 01/02/22 01/02/22 01/02/22 22:19 22:40 22:40 WBC 7.8 RBC 5.41 Hgb 15.6 Hct 48.7 MCV 90.0 MCH 28.8 MCHC 32.0 RDW Std Deviation 43.8 RDW Coeff of Annalisa 13.4 Plt Count 331 MPV 9.5 Immature Gran % (Auto) 0.400 Neut % (Auto) 68.7 Lymph % (Auto) 16.0 L [place] % (Auto) 12.2 H Eos % (Auto) 1.9 Baso % (Auto) 0.8 Absolute Neuts (auto) 5.3 Absolute Lymphs (auto) 1.24 Nucleated RBC % 0 PT 13.3 INR 1.0 APTT 28.8 Sodium Potassium Chloride Carbon Dioxide Anion Gap BUN Creatinine Estim Creat Clear Calc Est GFR (MDRD) Af Amer Est GFR (MDRD) Non-Af BUN/Creatinine Ratio Glucose Lactic Acid Calcium Total Bilirubin AST ALT Alkaline Phosphatase Total Protein Albumin Globulin Albumin/Globulin Ratio Urine Color Straw Urine Clarity Clear Urine pH 7.0 Ur Specific Asher 1.010 Urine Protein 15 H Urine Glucose (UA) Normal Urine Ketones Negative Urine Occult Blood Negative Urine Nitrite Negative Urine Bilirubin Negative Urine Urobilinogen Normal Ur Leukocyte Esterase Negative Urine RBC 0 SEEN Urine WBC 0-5 SEEN Ur Squamous Epith Cells 0-5 SEEN Urine Bacteria 1+ Urine Mucus 0 SEEN 01/02/22 01/02/22 22:40 22:55 WBC RBC Hgb Hct MCV MCH MCHC RDW Std Deviation RDW Coeff of Annalisa Plt Count MPV Immature Gran % (Auto) Neut % (Auto) Lymph % (Auto) [place] % (Auto) Eos % (Auto) Baso % (Auto) Absolute Neuts (auto) Absolute Lymphs (auto) Nucleated RBC % PT INR APTT Sodium 136 Potassium 3.7 Chloride 103 Carbon Dioxide 29.0 Anion Gap 4 L BUN 12 Creatinine 0.83 Estim Creat Clear Calc 129.48 Est GFR (MDRD) Af Amer 135 Est GFR (MDRD) Non-Af 112 BUN/Creatinine Ratio 14.4 Glucose 107 H Lactic Acid 1.1 Calcium 9.8 Total Bilirubin 0.20 AST 41 H ALT 77 H Alkaline Phosphatase 74 Total Protein 7.8 Albumin 3.2 Globulin 4.6 H Albumin/Globulin Ratio 0.7 L Urine Color Urine Clarity Urine pH Ur Specific Asher Urine Protein Urine Glucose (UA) Urine Ketones Urine Occult Blood Urine Nitrite Urine Bilirubin Urine Urobilinogen Ur Leukocyte Esterase Urine RBC Urine WBC Ur Squamous Epith Cells Urine Bacteria Urine Mucus Radiography Diagnostic Testing: Clinical Impression(s) from Imaging Studies Chest X-Ray 01/02/22 22:50 IMPRESSION: No radiographic evidence of acute cardiopulmonary disease. Electronically Signed: Drew Edmond MD at 23:13 EDT , Discharge Plan Triage Chief Complaint: Fever ED Provider: Robe Swanson Dx/Rx/DC Orders Clinical Impression: COVID-19 Instructions: Coronavirus Disease 2019 (COVID-19): Caring for Yourself or Ot hers, COVID-19 and the Flu: What's the Difference? Prescriptions: No Action cephalexin 500 mg capsule 500 mg PO Q6H 5 Days Qty: 20 0RF Primary Care Provider: [facility] ,Out of Referrals: [facility] Doctor,Out of [Primary Care Provider] - Activity Restrictions/Additional Instructions: Please avoid close contact especially with young, old, family members, friends or members of her community. Please perform social distancing. Please wear your mask when you cannot social distance. Per CDC guidelines you should isolate for 5 days from symptom onset. Please return if you develop worsening shortness of breath, cough, or if your symptoms change or worsen in any way that is concerning. Disposition Disposition: Home, Self Care
--- NOTE | 2022-01-02 22:13 | EKG12_ITS ---
Test Reason : DYSRHYTHMIA Blood Pressure : / mmHG Vent. Rate : 104 BPM Atrial Rate : 104 BPM P-R Int : 154 ms QRS Dur : 090 ms QT Int : 340 ms P-R-T Axes : 043 036 025 degrees QTc Int : 447 ms Sinus tachycardia Otherwise normal ECG Confirmed by CRISTIAN RAMSEY, MIRANDA ([id number]), magazine editor CAT OSWALD ([id number]) on 01/04/2022 2:05:01 PM Referred By: DUDLEY Confirmed By:KASIA FOSTER MD
[2022-01-02 22:26] LABS: Mucous, Urine 0 SEEN /hpf (<or=2+); Red Blood Cells-Urine 0 SEEN /hpf (0-5)
[2022-01-02 22:31] LABS: Color, Urine Straw (Yellow); Glucose, Dipstick Normal (Normal); Ketone-Dipstick Negative (Negative); Leukocyte Esterase-Dipstick Negative /ul (Negative); Nitrite-Dipstick Negative (Negative); Occult Blood-Urine Negative /ul (Negative); Protein-Dipstick 15 mg/dl (Negative); Urine Bilirubin Dipstick Negative (Negative); Urine Clarity Clear (Clear); Urine Urobilinogen Normal (Normal)
[2022-01-02 22:40] LABS: Bacteria 1+ /hpf (None Seen)
[2022-01-02 22:41] LABS: Squamous Epithelial Cells - UA 0-5 SEEN /hpf (0-5); White Blood Cells 0-5 SEEN /hpf (0-5)
[2022-01-02 22:50] LABS: Absolute Lymphocyte Count 1.24 X10^3/uL (0.83-4.51); Absolute Neutrophil Count 5.3 X10^3/uL (2.0-7.7); Basophil# 0.06 X10^3/uL; Basophil% 0.8 % (0-1); Eosinophil# 0.15 X10^3/uL; Eosinophils% 1.9 % (0-5); Hematocrit 48.7 % (40-54); Hemoglobin 15.6 g/dL (13.0-16.5); Lymphocyte # 1.24 X10^3/ul (0.83-4.51); Mean Corpuscular Hgb 28.8 pg (27.0-32.0); Mean Platelet Vol. 9.5 fl (6.2-12.0); Monocyte# 0.95 X10^3/uL; Monocyte% 12.2 % (0-10); NRBC Flagged by Analyzer 0 % (0-5); Neutrophil # 5.33 X10^3/uL (2.7-7.7); Neutrophil % 68.7 % (47-70); Platelet Count 331 K/mm3 (150-450); RBC Distribution Width CV 13.4 % (11.6-14.6); RBC Distribution Width SD 43.8 fl (35.1-43.9); Red Blood Count 5.41 M/mm3 (4.6-6.2); White Blood Count 7.8 K/mm3 (4.4-11.0)
--- NOTE | 2022-01-02 22:50 | RAD_ITS ---
INDICATION: fever, cough EXAMINATION/TECHNIQUE: X-RAY - AP view chest COMPARISON: AP chest x-ray from 12/30/2019 FINDINGS: LINES/DEVICES: Stable small metallic clip left lower chest. LUNGS: No overt pulmonary edema or focal airspace consolidation. No sizable pleural effusion. No pneumothorax detected. MEDIASTINUM AND CARDIOVASCULAR STRUCTURES: Heart size within normal limits for imaging technique. Central airways and mediastinal contour are unremarkable. BONES AND SOFT TISSUES: No acute findings. RAD/Chest 1 View (Portable) IMPRESSION: No radiographic evidence of acute cardiopulmonary disease. Electronically Signed: Drew Edmond MD at 23:13 EDT ,
[2022-01-02 22:56] LABS: Prothrombin Time (Protime)PT. 13.3 SECONDS (11.7-14.9)
[2022-01-02 22:57] LABS: Partial Thromboplast Time 28.8 Seconds (24.1-36.2)
[2022-01-02 23:01] VITALS: BP 149/80; PULSE 109; RESP 18; TEMP 37.9; O2SAT 94
[2022-01-02 23:05] VITALS: RESP 22; O2SAT 94; O2SAT 97
[2022-01-02 23:07] VITALS: TEMP 37.9
[2022-01-02] MEDS: 0.9% Normal Saline 1,000 ML 999 ML IV (23:07)
[2022-01-02] MEDS: Acetaminophen 325 MG Tablet PO (23:07)
[2022-01-02 23:15] LABS: ALB/GLOB Ratio 0.7 RATIO (0.9-2.4); AST(SGOT) 41 U/L (15-37); Alanine Aminotransfer ALT/SGPT 77 U/L (16-61); Albumin, Serum 3.2 g/dL (3.2-5.0); Alkaline Phosphatase 74 U/L (45-117); Anion Gap 4 (5-15); BUN 12 mg/dL (7-18); BUN/Creat Ratio 14.4 RATIO (10-20); Calcium,Total 9.8 mg/dL (8.5-10.1); Chloride 103 mmol/L (98-107); Creatinine, Serum 0.83 mg/dL (0.70-1.30); EST Glomerular Filtration Rate 112 mL/min (>60); Est Glom Filt Rate - Afr Amer 135 mL/min (>60); Estimated Creatinine Clearance 129.48 ml/min; Globulin 4.6 g/dL (2.2-4.2); Glucose 107 mg/dL (74-106); Potassium 3.7 mmol/L (3.5-5.1); Protein, Total 7.8 g/dL (6.4-8.2); Sodium Level 136 mmol/L (136-145)
[2022-01-02 23:26] LABS: Lactic Acid 1.1 mmol/L (0.4-1.9)
[2022-01-02 23:43] VITALS: TEMP 37.1
[2022-01-03] VITALS: BP 140/78; PULSE 112; PULSE 114; RESP 17; RESP 24; TEMP 37.2; O2SAT 96; O2SAT 98
[2022-01-03 00:09] VITALS: O2SAT 96
[2022-01-03 00:19] VITALS: PULSE 103
== END 2022-01-03 00:36 | disposition home or self-care (01) ==
PROVIDERS: Emergency Provider Emergency Medicine; Visit Provider Emergency Medicine
DX: U07.1 COVID-19 (principal); G47.33 Obstructive sleep apnea (adult) (pediatric); M79.604 Pain in right leg; Z86.16 Personal history of COVID-19
CPT/HCPCS: 71045; 80053; 81001; 83605; 85025; 85610; 85730; 87040; 87086; 87811; 93005; 99285; J7030; A4216

== ENCOUNTER 2022-05-08 04:16 | Emergency (ER) | payer OTHER, SELFPAY ==
[2022-05-08 04:17] VITALS: BP 113/79; PULSE 81; RESP 18; TEMP 36.2; O2SAT 96; BMI 59.3
--- NOTE | 2022-05-08 04:29 | EX.ED.DYSGE1 ---
HPI History of Present Illness Chief Complaint: Flank Pain Informant: patient Onset/Context/Timing Onset: Hours (3) Context: Gradual Onset Timing: Continuous Quality: Sharp Location: Left lower chest and left flank Worsened by: Deep breathing and coughing Relieved by: Nothing Narrative Narrative: Patient presents with left flank and back pain that has been getting worse over the past 3 hours. Patient states it has gradually gotten worse. Patient describes the pain as sharp. Patient states pain is over the left lower chest and flank area. Patient states it is worse with deep breathing and with coughing. Patient states he is concerned that this could be pneumonia. Patient denies any fevers or chills. Patient denies any sputum production. Patient denies any shortness of breath but states it hurts to take a deep breath. PFSH PFSH Medical History Asthma Chewing tobacco nicotine dependence COVID-19 Empyema of left pleural space Morbid obesity with BMI of 40.0-44.9, adult Multiple pulmonary emboli JULIÁN (obstructive sleep apnea) suspected hypercoagulable disorder Home Medications erythromycin 5 mg/gram (0.5 %) eye ointment 1 applic EACH EYE QHS 05/08/22 [History Last Taken Unknown] levofloxacin 750 mg tablet 750 mg PO DAILY #5 tabs 05/08/22 [Rx Last Taken Unknown] Allergy/AdvReac Type Severity Reaction Status Date / Time hydrocodone [From [place]] AdvReac Upset Verified 05/08/22 04:20 Stomach Family History (Updated 12/29/21 @ 22:[address] Parul Livingston MD) Mother Diabetes Father Hypercoagulable state Surgical History History of surgery on lower extremity S/P chest tube placement S/P pericardial window creation Social History household members: spouse Smoking Status: Never smoker Smokeless tobacco user: chewing tobacco and other alcohol intake: never substance use type: does not use ROS ROS ED Constitutional Constitutional ED: Denies chills or fever(s) Eyes Eyes: Denies blurry vision or change in vision ENT ENT ED: Denies rhinorrhea or sore throat Cardiovascular Cardiovascular: Denies chest pain or palpitations Respiratory/Chest Respiratory/Chest: Reports cough; Denies dyspnea Gastrointestinal Gastrointestinal: Denies nausea or vomiting Genitourinary Genitourinary ED: Denies dysuria or hematuria Musculoskeletal Musculoskeletal: Reports back pain; Denies neck pain Integumentary Denies abscess or rash Neurologic Neurologic: Denies headache(s) or weakness Allergic/Immunologic Allergic/Immunologic ED: Denies mouth swelling or urticaria EXAM Physical Exam Const Vital Signs: 05/08/22 04:17 05/08/22 04:21 Temperature 97.1 F L Temperature Source Temporal Pulse Rate 81 Respiratory Rate 18 Respiratory Effort Normal Non-Labored Respiratory Pattern Irregular Blood Pressure 113/79 Blood Pressure Mean 90 Pulse Ox 96 Oxygen Delivery Method Room Air Positive well nourished, well developed and obese General Appearance ED: well developed and NAD Nutritional Appearance: obese HEENT Reports moist mucous membranes Eyes PERRL and EOMs intact bilaterally Eyes Narrative: Conjunctiva are clear. There is no discharge or drainage. Neck supple and no JVD Resp normal respiratory effort Auscultation: wheezes left lower Cardio regular rate, regular rhythm and no murmurs GI normal to inspection, nondistended, normoactive bowel sounds Palpation: soft and tender LUQ; Negative for guarding or rebound tenderness present Back/Spine General Back: CVA tenderness left Extremity normal to inspection General Extremety ED: Negative for edema or tenderness General Extremity: Negative for edema Neuro oriented x3, CN's II-XII intact bilaterally and no sensory deficits noted Sensorium / Orientation: alert Motor Exam: strength 5/5 throughout Psych mental status grossly normal Skin no rashes or lesions noted MDM MDM MDM Narrative Medical decision making narrative: Patient given a dose of Toradol here. CBC shows a slight leukocytosis of 11.7. Comprehensive metabolic profile was within normal limits. Lipase was normal. Urinalysis shows leukocyte esterases of 25 with 5-[address] scan of the abdomen pelvis was obtained. There are bilateral renal calculi but no ureteral calculi. PA and lateral chest x-ray was obtained. There are 2 views. On my interpretation, lung decker show a small left pleural effusion. There is normal cardiac silhouette. Bony thorax is normal. There is no acute process noted. Radiologist also interpreted the x-ray and agrees. Urine culture was ordered. Patient was given a prescription for a short course of Levaquin. Patient was instructed to follow-up with his primary care physician in 5 to 7 days. Patient understood and was agreeable with the plan. All questions were answered. Lab Data Attestation: I reviewed the patient's lab results. Labs: Laboratory Results - last 24 hr 05/08/22 05/08/22 05/08/22 04:41 04:41 05:40 WBC 11.7 H RBC 5.54 Hgb 15.7 Hct 49.4 MCV 89.2 MCH 28.3 MCHC 31.8 L RDW Std Deviation 43.8 RDW Coeff of Annalisa 13.4 Plt Count 326 MPV 9.2 Immature Gran % (Auto) 0.300 Neut % (Auto) 67.8 Lymph % (Auto) 23.9 [place] % (Auto) 6.1 Eos % (Auto) 1.4 Baso % (Auto) 0.5 Absolute Neuts (auto) 8.0 H Absolute Lymphs (auto) 2.80 Nucleated RBC % 0 Sodium 138 Potassium 3.9 Chloride 103 Carbon Dioxide 28.0 Anion Gap 7 BUN 20 H Creatinine 0.89 Estim Creat Clear Calc 124.56 Est GFR (MDRD) Af Amer 126 Est GFR (MDRD) Non-Af 104 BUN/Creatinine Ratio 22.5 H Glucose 130 H Calcium 9.3 Total Bilirubin 0.50 AST 33 ALT 70 H Alkaline Phosphatase 84 Total Protein 7.7 Albumin 3.4 Globulin 4.3 H Albumin/Globulin Ratio 0.8 L Lipase 61 L Urine Color Yellow Urine Clarity Clear Urine pH 5.0 Ur Specific [place] 1.025 Urine Protein 30 H Urine Glucose (UA) Normal Urine Ketones 5 H Urine Occult Blood Negative Urine Nitrite Negative Urine Bilirubin Negative Urine Urobilinogen Normal Ur Leukocyte Esterase 25 H Urine RBC 0 SEEN Urine WBC 5-10 SEEN Ur Squamous Epith Cells 0-5 SEEN Urine Bacteria RARE Urine Mucus 0 SEEN Radiography Chest X-Ray - ED: 2 View, Read by ED Physician, Read by Radiologist and Left Effusion Diagnostic Testing: Clinical Impression(s) from Imaging Studies Abdomen/Pelvis CT 05/08/22 04:32 IMPRESSION: Bilateral nonobstructive kidney stones the largest measures 10 mm in the left kidney. Electronically Signed: Nini Bradshaw MD at 5:19 EST , Chest X-Ray 05/08/22 04:32 IMPRESSION: There is small left pleural effusion. Electronically Signed: Nini Bradshaw MD at 5:15 EST , Discharge Plan Triage Chief Complaint: Flank Pain ED Provider: Yonatan Barbosa Dx/Rx/DC Orders Clinical Impression: Urinary tract infection, Pleural effusion on left, Left flank pain Instructions: ED Flank Pain, Uncertain Cause, ED Bladder Infection, Male (Adult) Prescriptions: New levofloxacin 750 mg tablet 750 mg PO DAILY Qty: 5 0RF No Action erythromycin 5 mg/gram (0.5 %) ointment 1 applic EACH EYE QHS Label Comments: INSTILL OINTMENT INTO EACH EYE NIGHTLY Primary Care Provider: Care Physician,No Primary Referrals: Genia Adhikari MD [Med Staff - Application Spec] - 5-7 Days [facility] Doctor,Out of [Non-Staff] - Disposition Disposition: Home, Self Care
--- NOTE | 2022-05-08 04:32 | CT_ITS ---
STUDY: CT ABDOMEN AND PELVIS WITHOUT CONTRAST REASON FOR EXAM: Male, 36 years old. Left flank pain RADIATION DOSAGE (If Supplied By Facility): CTDIvol = ( 34.45 ) mGy, DLP = ( 1919.58 ) mGycm TECHNIQUE: Transaxial images were obtained from the dome of the diaphragm to the symphysis pubis without oral contrast, and without intravenous contrast. Sagittal and coronal images were reconstructed. Individualized dose optimization techniques were used for this CT. COMPARISON: None. FINDINGS: The visualized lung bases are unremarkable. The visualized portions of the heart are within normal limits. Normal liver. Normal gallbladder and extrahepatic biliary system. Normal spleen. Normal pancreas. Normal bilateral adrenal glands. Bilateral nonobstructive kidney stones the largest measures 10 mm in the left kidney. Normal visualized stomach. Normal small intestine. Normal colon. The appendix is visualized and appears normal. Normal abdominal aorta. Normal inferior vena cava. Normal retroperitoneum. Normal urinary bladder. Normal abdominal wall. Normal osseous structures. CT/Abdomen/Pelvis without Cont IMPRESSION: Bilateral nonobstructive kidney stones the largest measures 10 mm in the left kidney. Electronically Signed: Nini Bradshaw MD at 5:19 EST ,
--- NOTE | 2022-05-08 04:32 | RAD_ITS ---
STUDY: X-RAY CHEST REASON FOR EXAM: Male, 36 years old. Cough TECHNIQUE: Frontal and lateral views of the chest. COMPARISON: None. FINDINGS: The lungs are clear and expanded. There is small left pleural effusion. Normal size heart. Normal mediastinum and cuca. Normal visualized pulmonary arteries. Normal visualized aortic arch and descending thoracic aorta. Normal visualized thoracic spine. Normal visualized ribs, clavicles, and shoulders. There is no demonstrated abnormality of the visualized soft tissue structures of the upper abdomen. RAD/Chest PA and Lateral IMPRESSION: There is small left pleural effusion. Electronically Signed: Nini Bradshaw MD at 5:15 EST ,
[2022-05-08] MEDS: Ketorolac 30 MG/ML Syringe IV (04:43)
[2022-05-08 04:46] LABS: Basophil# 0.06 X10^3/uL; Basophil% 0.5 % (0-1); Eosinophil# 0.16 X10^3/uL; Eosinophils% 1.4 % (0-5); Hematocrit 49.4 % (40-54); Hemoglobin 15.7 g/dL (13.0-16.5); Lymphocyte % 23.9 % (19-41); Mean Corp Hgb Conc 31.8 g/dL (32-36); Mean Corpuscular Hgb 28.3 pg (27.0-32.0); Mean Corpuscular Volume 89.2 fL (80-94); Mean Platelet Vol. 9.2 fl (6.2-12.0); Monocyte# 0.71 X10^3/uL; Monocyte% 6.1 % (0-10); NRBC Flagged by Analyzer 0 % (0-5); Neutrophil # 7.96 X10^3/uL (2.7-7.7); Neutrophil % 67.8 % (47-70); Platelet Count 326 K/mm3 (150-450); RBC Distribution Width CV 13.4 % (11.6-14.6); RBC Distribution Width SD 43.8 fl (35.1-43.9); Red Blood Count 5.54 M/mm3 (4.6-6.2); White Blood Count 11.7 K/mm3 (4.4-11.0)
[2022-05-08 05:05] LABS: ALB/GLOB Ratio 0.8 RATIO (0.9-2.4); AST(SGOT) 33 U/L (15-37); Alanine Aminotransfer ALT/SGPT 70 U/L (16-61); Albumin, Serum 3.4 g/dL (3.2-5.0); Alkaline Phosphatase 84 U/L (45-117); Anion Gap 7 (5-15); BUN 20 mg/dL (7-18); BUN/Creat Ratio 22.5 RATIO (10-20); Calcium,Total 9.3 mg/dL (8.5-10.1); Chloride 103 mmol/L (98-107); Creatinine, Serum 0.89 mg/dL (0.70-1.30); EST Glomerular Filtration Rate 104 mL/min (>60); Est Glom Filt Rate - Afr Amer 126 mL/min (>60); Estimated Creatinine Clearance 124.56 ml/min; Globulin 4.3 g/dL (2.2-4.2); Glucose 130 mg/dL (74-106); Lipase 61 U/L (73-393); Potassium 3.9 mmol/L (3.5-5.1); Protein, Total 7.7 g/dL (6.4-8.2); Sodium Level 138 mmol/L (136-145)
[2022-05-08 05:43] LABS: Mucous, Urine 0 SEEN /hpf (<or=2+); Red Blood Cells-Urine 0 SEEN /hpf (0-5)
[2022-05-08 05:44] LABS: Color, Urine Yellow (Yellow); Glucose, Dipstick Normal (Normal); Ketone-Dipstick 5 mg/dl (Negative); Leukocyte Esterase-Dipstick 25 /ul (Negative); Nitrite-Dipstick Negative (Negative); Occult Blood-Urine Negative /ul (Negative); Protein-Dipstick 30 mg/dl (Negative); Specific Gravity, Urine 1.025 (1.002-1.030); Urine Bilirubin Dipstick Negative (Negative); Urine Clarity Clear (Clear); Urine Urobilinogen Normal (Normal)
[2022-05-08 05:52] LABS: Bacteria RARE /hpf (None Seen); Squamous Epithelial Cells - UA 0-5 SEEN /hpf (0-5); White Blood Cells 5-10 SEEN /hpf (0-5)
[2022-05-08] MEDS: levoFLOXacin 750 MG Tablet PO (06:26)
== END 2022-05-08 06:27 | disposition home or self-care (01) ==
PROVIDERS: Emergency Provider Emergency Medicine; Visit Provider Emergency Medicine
DX: N39.0 Urinary tract infection, site not specified (principal); N20.0 Calculus of kidney; J90 Pleural effusion, not elsewhere classified; J45.909 Unspecified asthma, uncomplicated; E66.9 Obesity, unspecified
CPT/HCPCS: 71046; 74176; 80053; 81001; 83690; 85025; 96374; 99284; A4216

== ENCOUNTER 2022-10-03 14:01 | Emergency (ER) | payer OTHER, SELFPAY ==
[2022-10-03 14:02] VITALS: BP 171/98; PULSE 117; RESP 16; TEMP 36.6; O2SAT 94
[2022-10-03 14:04] VITALS: BMI 54.9
--- NOTE | 2022-10-03 14:50 | CT_ITS ---
STUDY: CTA CHEST REASON FOR EXAM: Male, 37 years old. SOB, rule out PE RADIATION DOSAGE (If Supplied By Facility): CTDIvol = ( 24.81 ) mGy, DLP = ( 1114.26 ) mGycm TECHNIQUE: The examination was performed with the intravenous administration of IV 100mL [id number]-[id number]. Post-processing of the angiographic images was performed, with multiplanar reformation and 3D reconstruction. Individualized dose optimization techniques were used for this CT. COMPARISON: Comparison is made with prior study done December 29, 2021. FINDINGS: Pulmonary embolism seen in the distal portion of the right pulmonary artery extending into the interlobar artery as well as branches of the upper and lower pulmonary arteries. This also evidence of a pulmonary emboli in the branches of the left upper and left lower pulmonary artery. Normal thoracic aorta and visualized great vessels. There is no demonstrated aortic dissection. Normal heart and pericardium. Normal mediastinum. Normal hilar regions. Normal visualized trachea and bronchi. The lungs are well expanded. Mild increased markings at the lung bases most likely representing atelectasis worse at the left lung base. Normal pleura. Normal chest wall structures. Normal osseous structures. Stable 2.1 cm cyst in the upper anterior aspect of the left kidney. CT/CTA Chest W/WO Contrast IMPRESSION: Bilateral pulmonary emboli more prominent in the right hemithorax. Electronically Signed: Shun Perez MD at 15:47 EDT ,
[2022-10-03 15:15] LABS: Absolute Lymphocyte Count 3.11 X10^3/uL (0.83-4.51); Absolute Neutrophil Count 10.3 X10^3/uL (2.0-7.7); Basophil# 0.09 X10^3/uL; Basophil% 0.6 % (0-1); Eosinophil# 0.17 X10^3/uL; Eosinophils% 1.2 % (0-5); Hematocrit 47.5 % (40-54); Hemoglobin 15.1 g/dL (13.0-16.5); Lymphocyte # 3.11 X10^3/ul (0.83-4.51); Lymphocyte % 21.3 % (19-41); Mean Corp Hgb Conc 31.8 g/dL (32-36); Mean Corpuscular Hgb 24.4 pg (27.0-32.0); Mean Corpuscular Volume 76.7 fL (80-94); Mean Platelet Vol. 9.2 fl (6.2-12.0); Monocyte# 0.89 X10^3/uL; Monocyte% 6.1 % (0-10); NRBC Flagged by Analyzer 0 % (0-5); Neutrophil # 10.31 X10^3/uL (2.7-7.7); Neutrophil % 70.5 % (47-70); Platelet Count 397 K/mm3 (150-450); RBC Distribution Width CV 17.9 % (11.6-14.6); RBC Distribution Width SD 45.6 fl (35.1-43.9); Red Blood Count 6.19 M/mm3 (4.6-6.2); White Blood Count 14.6 K/mm3 (4.4-11.0)
--- NOTE | 2022-10-03 15:23 | EX.ED.DYSGE1 ---
HPI <LEIGHTON León - Last Filed: 10/03/22 21:03> History of Present Illness Chief Complaint: Shortness of Breath Narrative Narrative: Patient presenting today with shortness of breath both at rest and exertion that he has had for the past few days. He states that 2 nights ago his asked him why he was breathing so heavy. At that time, he did not feel short of breath but checked his pulse ox and was fluctuating between 81% and 93% on room air. Patient states that he thinks he had a right lower extremity DVT in the past and was on blood thinners for a year, but then his PCP told him that it might not have actually been a blood clot and could have been scar tissue. Patient received surgery on 06/04 due to a pelvis fracture and dislocated right hip and was in the hospital for 20 days. After that, he was very sedentary until the end of August. He is now in PT but reports that he does sit for around 8 hours each day. PMH includes asthma. He reports mild left-sided chest pain when taking a deep breath. He denies any fever, chills, abdominal pain, nausea, and vomiting. PFSH <LEIGHTON León - Last Filed: 10/03/22 21:03> PFSH Medical History Asthma Chewing tobacco nicotine dependence COVID-19 Empyema of left pleural space Morbid obesity with BMI of 40.0-44.9, adult Multiple pulmonary emboli JULIÁN (obstructive sleep apnea) suspected hypercoagulable disorder Home Medications erythromycin 5 mg/gram (0.5 %) eye ointment 1 applic EACH EYE QHS 05/08/22 [History Last Taken Unknown] levofloxacin 750 mg tablet 750 mg PO DAILY #5 tabs 05/08/22 [Rx Last Taken Unknown] apixaban 5 mg (74 tabs) tablets in a dose pack (Eliquis DVT-PE Treat 30D Start) 5 mg PO BID #74 tabs 10/03/22 [Rx Last Taken Unknown] Allergy/AdvReac Type Severity Reaction Status Date / Time hydrocodone [From Gray] AdvReac Upset Verified 10/03/22 14:02 Stomach Family History Mother Diabetes Father Hypercoagulable state Surgical History History of surgery on lower extremity S/P chest tube placement S/P pericardial window creation Social History household members: spouse Smoking Status: Never smoker Smokeless tobacco user: chewing tobacco and other alcohol intake: never substance use type: does not use ROS <LEIGHTON León - Last Filed: 10/03/22 21:03> ROS ED Constitutional Constitutional ED: Denies chills or fever(s) Eyes Eyes: Denies blurry vision Cardiovascular Cardiovascular: Reports chest pain; Denies palpitations Respiratory/Chest Respiratory/Chest: Reports dyspnea and dyspnea on exertion; Denies cough Gastrointestinal Gastrointestinal: Denies abdominal pain, nausea or vomiting Musculoskeletal Musculoskeletal: Denies arthralgias or myalgias Integumentary Denies abscess, Abrasions or rash Neurologic Neurologic: Denies confusion, dizziness or weakness EXAM <LEIGHTON León - Last Filed: 10/03/22 21:03> Physical Exam Const Vital Signs: 10/03/22 14:02 10/03/22 14:36 10/03/22 16:01 Temperature 98 F Temperature Source Temporal Pulse Rate 117 H Respiratory Rate 16 24 H Respiratory Effort Short of Breath Respiratory Pattern Tachypnea Blood Pressure 171/98 H Blood Pressure Mean 122 Pulse Ox 94 Oxygen Delivery Method Room Air Room Air Positive well nourished, well developed and no apparent distress General Appearance ED: well developed HEENT Reports normocephalic and head/scalp atraumatic Mouth ED: Yes moist mucous membranes normal Eyes PERRL and EOMs intact bilaterally Neck full ROM and supple Chest Wall inspection of chest normal Resp normal respiratory effort and clear to auscultation bilaterally Resp Narrative: Scattered expiratory wheezes bilaterally. Cardio regular rate and regular rhythm GI soft to palpation, non-tender, non-distended and no masses Back/Spine normal ROM and normal to inspection Extremity normal to inspection and full ROM Neuro oriented x3, CN's II-XII intact bilaterally, moves all extremities, no focal motor deficits and no sensory deficits noted Sensorium / Orientation: awake and alert Psych mental status grossly normal and thought process normal Skin no rashes or lesions noted and no wounds <Dr. Chun Jimenes DO - Last Filed: 10/03/22 22:08> Physical Exam Const Vital Signs: 10/03/22 14:02 10/03/22 14:36 10/03/22 16:01 Temperature 98 F Temperature Source Temporal Pulse Rate 117 H Respiratory Rate 16 24 H Respiratory Effort Short of Breath Respiratory Pattern Tachypnea Blood Pressure 171/98 H Blood Pressure Mean 122 Pulse Ox 94 Oxygen Delivery Method Room Air Room Air MDM <LEIGHTON León - Last Filed: 10/03/22 21:03> [facility] Narrative Medical decision making narrative: Patient does appear short of breath and has felt this way over the past few days. He is tachycardic at 117 bpm and O2 saturation is 94% on room air. He is afebrile. Because of his history of DVT and recent immobilization, CTA of the chest will be obtained to rule out PE. Labs will be obtained to rule out leukocytosis, anemia, ACS, electrolyte abnormality. CTA does show bilateral pulmonary emboli. Patient was ambulated and remained above 95% on room air and felt stable. He would like to be treated for this as an outpatient and does not want to be admitted to the hospital. He does not have a PCP, but I have spoke to one of the physicians that are on-call with Dr. Adhikari, they will see him in the office next week. He will be started on Eliquis with first dose here. He has been given strict return precautions and will be discharged home in stable condition. He is comfortable with plan. Lab Data Attestation: I reviewed the patient's lab results. Lab results narrative: WBC 14.6, sodium 135, troponin 6 Labs: Laboratory Results - last 24 hr 10/03/22 10/03/22 15:00 15:00 WBC 14.6 H RBC 6.19 Hgb 15.1 Hct 47.5 MCV 76.7 L MCH 24.4 L MCHC 31.8 L RDW Std Deviation 45.6 H RDW Coeff of Annalisa 17.9 H Plt Count 397 MPV 9.2 Immature Gran % (Auto) 0.300 Neut % (Auto) 70.5 H Lymph % (Auto) 21.3 [place] % (Auto) 6.1 Eos % (Auto) 1.2 Baso % (Auto) 0.6 Absolute Neuts (auto) 10.3 H Absolute Lymphs (auto) 3.11 Nucleated RBC % 0 Sodium 135 L Potassium 4.5 Chloride 105 Carbon Dioxide 22.0 Anion Gap 8 BUN 13 Creatinine 0.81 Estim Creat Clear Calc 135.57 Est GFR (MDRD) Af Amer 140 Est GFR (MDRD) Non-Af 115 BUN/Creatinine Ratio 16.1 Glucose 115 H Calcium 9.9 Troponin I High Sens 6 Radiography Diagnostic Testing: Clinical Impression(s) from Imaging Studies Chest CTA 10/03/22 14:50 IMPRESSION: Bilateral pulmonary emboli more prominent in the right hemithorax. Electronically Signed: Shun Perez MD at 15:47 EDT , <Dr. Chun Jimenes, DO - Last Filed: 10/03/22 22:08> [facility] MDM Narrative Medical decision making narrative: Patient does appear short of breath and has felt this way over the past few days. He is tachycardic at 117 bpm and O2 saturation is 94% on room air. He is afebrile. Because of his history of DVT and recent immobilization, CTA of the chest will be obtained to rule out PE. Labs will be obtained to rule out leukocytosis, anemia, ACS, electrolyte abnormality. CTA does show bilateral pulmonary emboli. Patient was ambulated and remained above 95% on room air and felt stable. He would like to be treated for this as an outpatient and does not want to be admitted to the hospital. He does not have a PCP, but I have spoke to one of the physicians that are on-call with Dr. Adhikari, they will see him in the office next week. He will be started on Eliquis with first dose here. He has been given strict return precautions and will be discharged home in stable condition. He is comfortable with plan. This patient was seen with a PA/UNIVERSAL GRINDER OPERATOR Individually assessed they patient including history and physical. I have reviewed everything on the chart that is available and agree with the documentation provided by the PA/UNIVERSAL GRINDER OPERATOR including discussion about the assessment, treatment plan, discussion, and return precautions. CBC showed a slight leukocytosis. Hemoglobin macular stable. Platelets are normal. Renal function and electrolytes within normal limits. High-sensitivity troponin is 6. EKG does not show any signs of ischemia on my interpretation. Patient ambulated the hallway and does not desaturate. He does not have any significant chest pain. For this reason he will be started on Eliquis. Outpatient follow-up was provided. Return precautions discussed. Lab Data Labs: Laboratory Results - last 24 hr 10/03/22 10/03/22 15:00 15:00 WBC 14.6 H RBC 6.19 Hgb 15.1 Hct 47.5 MCV 76.7 L MCH 24.4 L MCHC 31.8 L RDW Std Deviation 45.6 H RDW Coeff of Annalisa 17.9 H Plt Count 397 MPV 9.2 Immature Gran % (Auto) 0.300 Neut % (Auto) 70.5 H Lymph % (Auto) 21.3 [place] % (Auto) 6.1 Eos % (Auto) 1.2 Baso % (Auto) 0.6 Absolute Neuts (auto) 10.3 H Absolute Lymphs (auto) 3.11 Nucleated RBC % 0 Sodium 135 L Potassium 4.5 Chloride 105 Carbon Dioxide 22.0 Anion Gap 8 BUN 13 Creatinine 0.81 Estim Creat Clear Calc 135.57 Est GFR (MDRD) Af Amer 140 Est GFR (MDRD) Non-Af 115 BUN/Creatinine Ratio 16.1 Glucose 115 H Calcium 9.9 Troponin I High Sens 6 Radiography Diagnostic Testing: Clinical Impression(s) from Imaging Studies Chest CTA 10/03/22 14:50 IMPRESSION: Bilateral pulmonary emboli more prominent in the right hemithorax. Electronically Signed: Shun Perez MD at 15:47 EDT , Discharge Plan Triage Chief Complaint: Shortness of Breath ED Midlevel Provider: Vanda Beltran ED Provider: Chun Jimenes Dx/Rx/DC Orders Clinical Impression: Pulmonary embolism Instructions: Pulmonary Embolism Prescriptions: New Eliquis DVT-PE Treat 30D Start 5 mg (74 tabs) tablets,dose pack 5 mg PO BID Qty: 74 0RF Rx Instructions: Take 10 mg twice daily for 1 week, then take 5 mg twice daily No Action erythromycin 5 mg/gram (0.5 %) ointment 1 applic EACH EYE QHS Label Comments: INSTILL OINTMENT INTO EACH EYE NIGHTLY levofloxacin 750 mg tablet 750 mg PO DAILY Qty: 5 0RF Primary Care Provider: Care Physician,No Primary Referrals: Genia Adhikari MD [Med Staff - [facility]er Tender] - As soon as possible Care Physician,No Primary [Primary Care Provider] - Activity Restrictions/Additional Instructions: Take Eliquis as directed, please call the primary care provider I have referred you to to make an appointment. Disposition Disposition: Home, Self Care Discharge Date/Time: 10/03/22 17:31
[2022-10-03 15:33] LABS: Anion Gap 8 (5-15); BUN 13 mg/dL (7-18); BUN/Creat Ratio 16.1 RATIO (10-20); Calcium,Total 9.9 mg/dL (8.5-10.1); Chloride 105 mmol/L (98-107); Creatinine, Serum 0.81 mg/dL (0.70-1.30); EST Glomerular Filtration Rate 115 mL/min (>60); Est Glom Filt Rate - Afr Amer 140 mL/min (>60); Estimated Creatinine Clearance 135.57 ml/min; Glucose 115 mg/dL (74-106); Potassium 4.5 mmol/L (3.5-5.1); Sodium Level 135 mmol/L (136-145); Troponin-I HS 6 pg/mL (3.0-78.0)
[2022-10-03 15:52] VITALS: O2SAT 96
[2022-10-03 16:01] VITALS: RESP 24
[2022-10-03] MEDS: APIXABAN 5 MG TABLET 10 MG PO (17:14)
== END 2022-10-03 17:31 | disposition home or self-care (01) ==
PROVIDERS: Physician Assistant; Emergency Provider Student in an Organized Health Care Education/Training Program; Visit Provider Student in an Organized Health Care Education/Training Program
DX: I26.99 Other pulmonary embolism without acute cor pulmonale (principal); E66.01 Morbid (severe) obesity due to excess calories; Z68.41 Body mass index [BMI] 40.0-44.9, adult; J45.909 Unspecified asthma, uncomplicated; F17.220 Nicotine dependence, chewing tobacco, uncomplicated
CPT/HCPCS: 71275; 80048; 84484; 85025; 93005; 99284; Q9967; A4216

== ENCOUNTER → 2022-10-18 | Outpatient (CLI) | payer OTHER, SELFPAY ==
--- NOTE | 2022-10-18 11:22 | RAD_ITS ---
INDICATION: Worsening cough EXAMINATION/TECHNIQUE: X-RAY - XR Chest 2 Views COMPARISON: 05/08/2022 FINDINGS: LUNGS: Small left pleural effusion. No focal consolidation. MEDIASTINUM AND CARDIOVASCULAR STRUCTURES: Cardiac silhouette not enlarged. Central airways and mediastinal contour are unremarkable. RAD/Chest PA and Lateral IMPRESSION: Small pleural effusion. Electronically Signed: Mata Barrientos MD at 18:24 EDT ,
[2022-10-18 12:30] LABS: Hemoglobin A1c 6.2 % (3.8-5.6)
[2022-10-18 12:57] LABS: ALB/GLOB Ratio 0.8 RATIO (0.9-2.4); AST(SGOT) 23 U/L (15-37); Alanine Aminotransfer ALT/SGPT 44 U/L (16-61); Albumin, Serum 3.4 g/dL (3.2-5.0); Alkaline Phosphatase 125 U/L (45-117); Anion Gap 8 (5-15); BUN 11 mg/dL (7-18); BUN/Creat Ratio 14.8 RATIO (10-20); Calcium,Total 9.6 mg/dL (8.5-10.1); Chloride 104 mmol/L (98-107); Cholesterol 148 mg/dL (200); Creatinine, Serum 0.74 mg/dL (0.70-1.30); EST Glomerular Filtration Rate 127 mL/min (>60); Est Glom Filt Rate - Afr Amer 154 mL/min (>60); Globulin 4.5 g/dL (2.2-4.2); Glucose 108 mg/dL (74-106); High Density Lipoprotein 42 mg/dL; Potassium 4.2 mmol/L (3.5-5.1); Protein, Total 7.9 g/dL (6.4-8.2); Sodium Level 136 mmol/L (136-145); Thyroid Stim Hormone (TSH) 3.64 uIU/mL (0.358-3.74); Triglycerides 122 mg/dL; Very Low Density Lipoprotein 24 mg/dL (5-40)
== END | disposition home or self-care (01) ==
LOC: MTLAB 11:22
PROVIDERS: PCP Family Medicine; Referring Provider Family Medicine; Visit Provider Family Medicine
DX: R73.09 Other abnormal glucose (principal); E66.01 Morbid (severe) obesity due to excess calories; Z68.41 Body mass index [BMI] 40.0-44.9, adult
CPT/HCPCS: 36415; 71046; 80053; 80061; 83036; 84443

== ENCOUNTER → 2022-11-27 | Outpatient (CLI) | payer OTHER, SELFPAY | END | disposition home or self-care (01) | LOC: LABSPEC 15:10 | PROVIDERS: PCP Family Medicine; Referring Provider Family Medicine; Visit Provider Family Medicine | DX: R30.0 Dysuria (principal) | CPT/HCPCS: 87086 ==

== ENCOUNTER → 2023-01-02 | Outpatient (CLI) | payer OTHER, SELFPAY ==
--- NOTE | 2023-01-02 14:00 | VDLE_ITS ---
Reason For Study: Rt Calf Pain RIGHT LEFT GSV is normal. FV is compressible, spontaneous, phasic, CFV is patent and compressible. competent and demonstrates normal Acute deep vein thrombosis is noted in the augmentation. FV. It is dilated and NONCOMPRESSIBLE. Acute deep vein thrombosis is noted in the POP V. It is dilated and NONCOMPRESSIBLE. Acute deep vein thrombosis is noted in the T/P Trunk. It is dilated and NONCOMPRESSIBLE. PTV is compressible. RT PerV is compressible. Peroneal veins visualized in segments. Diminished flow seen in portions of POP V and Proximal SFV. Unable to detect flow in distal SFV and T/P trunk. Procedure This is a venous duplex using B-mode, color flow and spectral Doppler. Exam performed in department. The exam was diagnostic. The study was technically difficult due to body habitus. A preliminary report was called and/or faxed to Dr. Navarro's. VL/Venous Duplex US, Unilateral Interpretation Summary Acute deep vein thrombosis is noted in the right femoral vein, popliteal vein, tibioperoneal trunk vein Ordering Physician: Vickey Navarro Referring Physician: Vickey Navarro Performed By: Jacek Evans RVJaz
== END | disposition home or self-care (01) ==
LOC: CVS 13:59
PROVIDERS: PCP Family Medicine; Referring Provider Family Medicine; Visit Provider Family Medicine
DX: M79.661 Pain in right lower leg (principal)
CPT/HCPCS: 93971

== ENCOUNTER → 2023-01-22 | Outpatient (CLI) | payer OTHER, SELFPAY | END | disposition home or self-care (01) | PROVIDERS: PCP Family Medicine; Referring Provider Physician Assistant; Visit Provider Physician Assistant | DX: I82.409 Acute embolism and thrombosis of unspecified deep veins of unspecified lower extremity (principal); Z51.81 Encounter for therapeutic drug level monitoring; Z79.01 Long term (current) use of anticoagulants | CPT/HCPCS: 36415 ==

== ENCOUNTER → 2023-02-06 | Outpatient (CLI) | payer OTHER, SELFPAY ==
--- NOTE | 2023-02-06 12:42 | VDLE_ITS ---
Reason For Study: swelling RIGHT GSV is normal. CFV is compressible, spontaneous, phasic, competent and demonstrates normal augmentation. PTV is compressible. RT PerV is compressible. FV, POP V and T/P Trunk are partially compressible with decreased flow. Mild improvement from previous study done 01/02/23. Procedure This is a venous duplex using B-mode, color flow and spectral Doppler. Exam performed in department. The exam was abbreviated due to the COVID 19 protocol. The exam was diagnostic. VL/Venous Duplex US, Unilateral Interpretation Summary Subacute deep vein thrombosis is noted in the right femoral vein, popliteal vei n, tibioperoneal trunk vein. Improved from previous study Ordering Physician: Mimi Alfaro Referring Physician: Mimi Alfaro Performed By: Rebel Sauceda, RVT
== END | disposition home or self-care (01) ==
LOC: CVS 12:41
PROVIDERS: PCP Family Medicine; Referring Provider Physician Assistant; Visit Provider Physician Assistant
DX: I82.409 Acute embolism and thrombosis of unspecified deep veins of unspecified lower extremity (principal)
CPT/HCPCS: 93971

== ENCOUNTER → 2023-03-21 | Outpatient (CLI) | payer OTHER, SELFPAY ==
--- NOTE | 2023-03-21 10:58 | VDLE_ITS ---
Reason For Study: LLE Pain RIGHT LEFT CFV is compressible, spontaneous, phasic, GSV is normal. competent and demonstrates normal CFV is compressible, spontaneous, phasic, augmentation. competent, and demonstrates normal Procedure augmentation. This is a venous duplex using B-mode, color FV is compressible, spontaneous, phasic, flow and spectral Doppler. competent and demonstrates normal Exam performed in department. augmentation. The exam was diagnostic. POP V is compressible, spontaneous, phasic, The study was technically difficult. competent and demonstrates normal A preliminary report was called and/or faxed augmentation. to Mimi Alfaro Vascular PA. T/P Trunk is compressible. PTV is compressible. LT PerV is compressible. VL/Venous Duplex US, Unilateral Interpretation Summary Deep veins of the left lower extremity are patent and compressible segmentally. There is no evidence of left lower extremity deep vein thrombosis. The left great saphenous vein aysha ears patent and compressible segmentally. Ordering Physician: Mimi Alfaro Referring Physician: Vickey Navarro Performed By: Jacek Evans RVT
== END | disposition home or self-care (01) ==
LOC: CVS 10:57
PROVIDERS: PCP Family Medicine; Referring Provider Physician Assistant; Visit Provider Physician Assistant
DX: M79.605 Pain in left leg (principal); Z86.718 Personal history of other venous thrombosis and embolism
CPT/HCPCS: 93971

== ENCOUNTER → 2023-04-02 | Outpatient (CLI) | payer OTHER, SELFPAY ==
--- NOTE | 2023-04-02 12:42 | RAD_ITS ---
STUDY: X-RAY CHEST REASON FOR EXAM: Male, 37 years old. Shortness of breath. TECHNIQUE: Frontal and lateral views of the chest. COMPARISON: October 18, 2022 FINDINGS: Borderline cardiomegaly, normal aorta shadow, mild prominence of pulmonary arteries, hyperinflation and scarring at the left base with pleural thickening/blunting. No interval acute finding. No abnormality of the visualized soft tissue structures of the upper abdomen. RAD/Chest PA and Lateral IMPRESSION: Stable chest with no acute or active cardiopulmonary disease. Electronically Signed: Gustavo Sams MD at 14:06 EST ,
--- NOTE | 2023-04-02 13:04 | RAD_ITS ---
STUDY: X-RAY - RIGHT KNEE REASON FOR EXAM: Male, 37 years old. Acute knee pain. TECHNIQUE: 4 view(s) of the knee. COMPARISON: None. FINDINGS: Deformity of the lateral tibial plateau with depression and Formation at this site. Findings most compatible with remote lateral tibial plateau fracture. Normal medial, lateral and patellofemoral compartments. Normal soft tissues. RAD/Knee 4 or More Views IMPRESSION: Deformity of the lateral tibial plateau, likely from prior injury. No acute abnormality. Electronically Signed: Gustavo Sams MD at 15:37 EST ,
== END | disposition home or self-care (01) ==
LOC: MTRAD 12:41
PROVIDERS: PCP Family Medicine; Referring Provider Family Medicine; Visit Provider Family Medicine
DX: M25.561 Pain in right knee (principal); R05.8 Other specified cough
CPT/HCPCS: 71046; 73564

== ENCOUNTER → 2023-04-15 | Outpatient (CLI) | payer OTHER, SELFPAY ==
--- NOTE | 2023-04-15 12:33 | RAD_ITS ---
STUDY: X-RAY - ABDOMEN/PELVIS REASON FOR EXAM: Male, 37 years old. Flank pain. TECHNIQUE: Single AP view of the abdomen / pelvis on 4 images. COMPARISON: None. FINDINGS: Normal visualized lung bases. Normal bowel gas pattern. Moderate amount of feces in the colon. The visualized liver, spleen and kidneys are grossly normal in size and morphology. Normal soft tissue structures. ORIF of right acetabulum and proximal femur. RAD/Abdomen Single View IMPRESSION: No acute abnormality of the visualized lower chest, abdomen or pelvis. Electronically Signed: Gustavo Sams MD at 13:15 EST ,
== END | disposition home or self-care (01) ==
LOC: MTRAD 12:33
PROVIDERS: PCP Family Medicine; Referring Provider Family Medicine; Visit Provider Family Medicine
DX: R10.9 Unspecified abdominal pain (principal)
CPT/HCPCS: 74018

== ENCOUNTER → 2023-04-22 | Outpatient (CLI) | payer OTHER, SELFPAY ==
--- NOTE | 2023-04-22 11:33 | RAD_ITS ---
STUDY: X-RAY - LEFT KNEE REASON FOR EXAM: Male, 37 years old. Chronic pain TECHNIQUE: 4 view(s) of the knee. COMPARISON: None. FINDINGS: There is demineralization of the visualized distal femur. There is demineralization of the tibia and fibula. Normal proximal tibiofibular articulation. There is moderate degenerative arthrosis of the medial femorotibial compartment with moderate joint space narrowing. There is moderate degenerative arthrosis of the lateral femorotibial compartment with moderate joint space narrowing. There is moderate degenerative arthrosis of the patellofemoral articulation. The soft tissue structures are unremarkable. RAD/Knee 4 or More Views IMPRESSION: Moderate tricompartmental arthrosis as above. Electronically Signed: Anton Akins DO at 17:49 EST ,
== END | disposition home or self-care (01) ==
LOC: MTRAD 11:31
PROVIDERS: PCP Family Medicine; Referring Provider Family Medicine; Visit Provider Family Medicine
DX: M25.562 Pain in left knee (principal); G89.29 Other chronic pain
CPT/HCPCS: 73564

== ENCOUNTER → 2023-05-16 | Outpatient (CLI) | payer OTHER, MEDICAID, SELFPAY ==
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
== END | disposition home or self-care (01) ==
PROVIDERS: PCP Family Medicine; Referring Provider Orthopaedic Surgery Sports Medicine; Visit Provider Orthopaedic Surgery Sports Medicine
DX: M25.561 Pain in right knee (principal)
CPT/HCPCS: 73721

== ENCOUNTER → 2023-07-01 | Outpatient (CLI) | payer MEDICAID, SELFPAY ==
[2023-07-01 12:14] LABS: Absolute Lymphocyte Count 2.34 X10^3/uL (0.83-4.51); Absolute Neutrophil Count 6.5 X10^3/uL (2.0-7.7); Basophil# 0.07 X10^3/uL; Basophil% 0.7 % (0-1); Eosinophil# 0.19 X10^3/uL; Eosinophils% 1.9 % (0-5); Hematocrit 49.5 % (40-54); Hemoglobin 15.5 g/dL (13.0-16.5); Lymphocyte # 2.34 X10^3/ul (0.83-4.51); Mean Corp Hgb Conc 31.3 g/dL (32-36); Mean Corpuscular Hgb 26.4 pg (27.0-32.0); Mean Corpuscular Volume 84.2 fL (80-94); Mean Platelet Vol. 9.6 fl (6.2-12.0); Monocyte# 0.61 X10^3/uL; Monocyte% 6.3 % (0-10); NRBC Flagged by Analyzer 0 % (0-5); Neutrophil # 6.52 X10^3/uL (2.7-7.7); Neutrophil % 66.9 % (47-70); Platelet Count 392 K/mm3 (150-450); RBC Distribution Width CV 13.6 % (11.6-14.6); RBC Distribution Width SD 41.7 fl (35.1-43.9); Red Blood Count 5.88 M/mm3 (4.6-6.2); White Blood Count 9.8 K/mm3 (4.4-11.0)
== END | disposition home or self-care (01) ==
LOC: MTLAB 09:59
PROVIDERS: PCP Family Medicine; Referring Provider Family Medicine; Visit Provider Family Medicine
DX: H10.13 Acute atopic conjunctivitis, bilateral (principal)
CPT/HCPCS: 36415; 82785; 85025; 86003

== ENCOUNTER → 2023-07-23 | Outpatient (CLI) | payer MEDICAID, SELFPAY ==
--- NOTE | 2023-07-23 12:05 | NEURO ---
NCS and/or EMG Patient Report Ordering Doctor: Ant Coe DATE OF SERVICE: 07/23/23 Tomas presents for electrodiagnostic testing of the lower limbs. He reports numbness in the right lateral calf. He reports ongoing right knee pain. He has intermittent numbness in the left lower limb. Electrodiagnostic findings: Right peroneal motor nerve demonstrates normal distal latency and amplitude. There is approximately 50% drop in amplitude in comparison to the left side. Peroneal motor response could not be obtained at the fibular head due to swelling. Left peroneal motor nerve demonstrates normal distal latency, amplitude and conduction velocity. Tibial motor response within normal limits bilaterally. Sensory responses are within normal limits. H reflex is noted bilaterally. Needle EMG testing was performed in the lower limbs. Muscles tested showed no evidence of denervation with normal motor unit action potentials. Electrodiagnostic impression: This is an abnormal study in the lower limbs 1. 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 An accurate assessment cannot be made regarding compression at the fibular head due to an inability to obtain a response. 2. There is no electrodiagnostic evidence for peripheral polyneuropathy. 3. There is no electrodiagnostic evidence for lumbosacral radiculopathy. Multi Select Codes Neurology Neurology Interp Codes: 13522-35 Musc test done w/n test comp (interp) (2) and 15901-07 Nrv cndj test 9-10 studies (interp)
== END | disposition home or self-care (01) ==
PROVIDERS: PCP Family Medicine; Referring Provider Orthopaedic Surgery Sports Medicine; Visit Provider Orthopaedic Surgery Sports Medicine
DX: M25.561 Pain in right knee (principal)
CPT/HCPCS: 95886; 95911

== ENCOUNTER → 2023-10-06 | Outpatient (CLI) | payer MEDICAID, SELFPAY ==
--- NOTE | 2023-10-06 13:53 | VDLE_ITS ---
Reason For Study: HX RLE DVT RIGHT LEFT CFV is compressible, phasic, and INCOMPETENT CFV is compressible, spontaneous, phasic, for greater than 1.0 second. competent, and demonstrates normal FV is phasic and INCOMPETENT for greater than augmentation. 1.0 second. Mid and Dist FV are PARTIALLY FV is compressible, spontaneous, phasic, COMPRESSIBLE with diminished flow noted and competent and demonstrates normal intraluminal echoes. Prox FV is compressible. augmentation. POP V is compressible, phasic, and POP V is compressible, spontaneous, phasic, INCOMPETENT for greater than 1.0 second. competent and demonstrates normal T/P Trunk is compressible. augmentation. PTV is compressible. T/P Trunk is compressible. RT PerV is compressible. PTV is compressible. SFJ is competent and measures 0.90 cm. LT PerV is compressible. GSV proximal thigh measures 0.86 x 0.88 cm. SFJ is competent and measures 0.76 cm. GSV at knee measures 0.71 x 0.73 cm. GSV proximal thigh measures 0.61 x 0.57 cm. GSV is competent throughout. GSV at knee measures 0.46 x 0.48 cm. ASV proximal thigh is INCOMPETENT for greater GSV is competent throughout. than 0.5 seconds and measures 0.58 x 0.64 cm. SSV proximal calf is competent and measures ASV mid thigh is INCOMPETENT for greater than 0.46 x 0.53 cm. 0.5 seconds and measures 0.37 x 0.47 cm. SSV proximal calf is INCOMPETENT for greater than 0.5 seconds and measures 0.52 x 0.54 cm. Procedure This is a venous duplex using B-mode, color flow and spectral Doppler. Exam performed in department. The study was technically difficult. Patient was scanned in reverse Trendelenburg position during reflux assessment. VL/Venous Duplex US - Ron Extrem Interpretation Summary Chronic deep vein thrombosis is noted in the right femoral vein. Deep veins of the left lower extremity are patent and compressible segmentally. There is no evidence of left lower extremity deep vein thrombosis. The bilateral great saphenous vei ns appear patent and compressible segmentally. Positive for reflux in the right common femoral vein, femoral vein, popliteal v ein, accessory saphenous veins, small saphenous vein. Ordering Physician: Mimi Alfaro Referring Physician: Vickey Navarro Performed By: Jacek Evans RVT
== END | disposition home or self-care (01) ==
LOC: CVS 13:52
PROVIDERS: PCP Family Medicine; Referring Provider Physician Assistant; Visit Provider Physician Assistant
DX: Z86.718 Personal history of other venous thrombosis and embolism (principal)
CPT/HCPCS: 93970

== ENCOUNTER → 2023-12-18 | Outpatient (CLI) | payer MEDICAID, SELFPAY ==
--- NOTE | 2023-12-18 13:59 | VDLE_ITS ---
Reason For Study: Swelling RIGHT GSV is normal. FV is phasic and INCOMPETENT for greater than 1.0 second. FV are PARTIALLY COMPRESSIBLE throughout with diminished flow noted and intraluminal echoes. POP V is compressible, phasic, and INCOMPETENT for greater than 1.0 second. T/P Trunk is compressible. PTV is compressible. RT PerV is compressible. Procedure This is a venous duplex using B-mode, color flow and spectral Doppler. Exam performed in department. The study was technically difficult. VL/Venous Duplex US, Unilateral Interpretation Summary Chronic deep vein thrombosis is noted in the right femoral vein. Positive for reflux in the right femoral vein, popliteal vein Ordering Physician: Mimi Alfaro Referring Physician: Vickey Navarro Performed By: Angela Santoro RVT
== END | disposition home or self-care (01) ==
LOC: CVS 13:57
PROVIDERS: PCP Family Medicine; Referring Provider Physician Assistant; Visit Provider Physician Assistant
DX: Z86.718 Personal history of other venous thrombosis and embolism (principal)
CPT/HCPCS: 93971

== ENCOUNTER 2023-12-25 19:52 | Emergency (ER) | payer MEDICAID, SELFPAY ==
[2023-12-25 19:53] VITALS: BP 161/87; PULSE 116; RESP 20; TEMP 36.4; O2SAT 97; BMI 54.9
--- NOTE | 2023-12-25 20:38 | ED.RN ---
Pt comes to desk and states take me off the list, I am going to [place].
== END 2023-12-25 20:38 | disposition left against medical advice (07) ==
LOC: ED 20:49
PROVIDERS: PCP Family Medicine
DX: Z53.21 Procedure and treatment not carried out due to patient leaving prior to being seen by health care provider (principal)

== ENCOUNTER → 2023-12-26 | Outpatient (CLI) | payer MEDICAID, SELFPAY ==
--- NOTE | 2023-12-26 10:47 | VDLE_ITS ---
Reason For Study: LLE Swelling RIGHT LEFT FV is PARTIALLY COMPRESSIBLE throughout with GSV is normal. diminished flow noted and intraluminal CFV is compressible, spontaneous, phasic, echoes. Finding matches previous study / competent, and demonstrates normal consistent with CHRONIC DVT. augmentation. Procedure FV is compressible, spontaneous, phasic, This is a venous duplex using B-mode, color competent and demonstrates normal flow and spectral Doppler. augmentation. Exam performed in department. POP V is compressible, spontaneous, phasic, The exam was diagnostic. competent and demonstrates normal A preliminary report was called and/or faxed augmentation. to Mimi Alfaro [facility] PA. T/P Trunk is compressible. PTV is compressible. LT PerV is compressible. Anechoic and non-vascularized area throughout LT calf muscle fascia measuring approximately 5.65cm x 0.80cm is noted. VL/Venous Duplex US, Unilateral Interpretation Summary Deep veins of the left lower extremity are patent and compressible segmentally. There is no evidence of left lower extremity deep vein thrombosis. The left great saphenous vein aysha ears patent and compressible segmentally. Chronic deep vein thrombosis noted in the right femoral vein. Anechoic and non-vascularized area throughout left calf muscle fascia measuring approximately 5.65cm x 0.80cm is noted. Ordering Physician: Mimi Alfaro Referring Physician: Vickey Navarro Performed By: Jacek Evans, RVT
== END | disposition home or self-care (01) ==
LOC: CVS 10:45
PROVIDERS: PCP Family Medicine; Referring Provider Physician Assistant; Visit Provider Physician Assistant
DX: M79.89 Other specified soft tissue disorders (principal); Z86.718 Personal history of other venous thrombosis and embolism
CPT/HCPCS: 93971

== ENCOUNTER 2024-01-08 11:27 | Observation (INO) | payer MEDICAID, SELFPAY ==
[2024-01-08] VITALS (11 sets, daily range): BP systolic 101–165; BP diastolic 64–98; PULSE 107–127; RESP 17–39; TEMP 36.3–37.2; O2SAT 95–99; BMI 55.2; BMI 54.1
--- NOTE | 2024-01-08 12:14 | EKG12_ITS ---
Test Reason : SOB Blood Pressure : / mmHG Vent. Rate : 110 BPM Atrial Rate : 110 BPM P-R Int : 156 ms QRS Dur : 086 ms QT Int : 322 ms P-R-T Axes : 070 049 035 degrees QTc Int : 435 ms Sinus tachycardia Otherwise normal ECG Confirmed by GINA RAMSEY, UBALDO ([id number]), script editor CAT OSWALD ([id number]) on 01/12/2024 8:18:56 AM Referred By: Stanley Fish Confirmed By:UBALDO FUENTES MD
--- NOTE | 2024-01-08 12:17 | EDS_ITS ---
<Statement entered by Stanley Fish DO - 01/09/24 06:51> Patient was seen and examined with nurse adrienne August All components of the history and physical confirmed and agreed. History of present illness and physical exam: Patient is a 38-year-old male past medical history of DVT the, JULIÁN, asthma, BMI of 40-44.9 who presented to the emergency department with a chief complaint of shortness of breath, coughing and wheezing. Patient states that he has bronchitis issues. Patient also notes that he has been having redness in his right inner thigh for the past 3 to 4 days as well and he states that he has had cellulitis in the past. He states that he had a fever of 101 at home prior to coming here. He states that he has been off his Eliquis for the last 6 months. Review of systems: Agree with above Physical exam: Agree with above MDM Patient is a 38-year-old male who presented to the emerged part with chief complaint of cough, shortness of breath, fever and concern for cellulitis. Patient will have a workup performed here on the differential diagnose includes but not limited to asthma exacerbation, PE, cellulitis, upper respiratory infection secondary to viral etiology. Once workup is obtained reviewed he will be reevaluated. Patient's CBC was reviewed and was significant for leukocytosis 25,000, hemoglobin stable 14.7, platelet count was 328. Patient's INR normal at 1.2, PT is 14.9. Patient's sodium noted be 135, potassium normal at 4.1, creatinine normal at 0.80. Patient lactic acid normal at 1.5. Patient's AST and ALT were 15 and 35 respectively. Patient's x-ray of his chest reviewed showed concern for CHF. Patient was given IV fluids however was only given 1 L of fluid and not the 30 cc/kg bolus of IV fluids as there is concern for congestive heart failure exacerbation. Patient will be given Rocephin and azithromycin. At this point time do believe the patient will warrant admission to the hospital. Nurse practitioner Mata did speak with hospitalist who admitted the patient. Patient was notified with all question concerns answered at bedside. Final impression: Right thigh cellulitis CHF versus pneumonia Disposition: Patient will be admitted to the hospital for further evaluation management Supervising attending attestation: Stanley Fish D.O. [facility] History of Present Illness Chief Complaint: Shortness of Breath Narrative Narrative: Patient is a 38-year-old male with history of morbid obesity, prediabetes, hypertension, history of blood clots who is on Eliquis however has been taken off the last 6 months presents to the [facility] part for multiple complaints. Patient is over the last 3 weeks, has been having significant short of breath, coughing, wheezing. Patient dates he does have some bronchitis issues. Patient also states that he has been having some redness for the last 3 to 4 days to his right inner thigh. He has been admitted for cellulitis in the past. He states he had a fever of 101 prior to coming here. Denies any nausea or vomiting. [facility] Medical History Right peroneal nerve injury Right knee pain JULIÁN (obstructive sleep apnea) Chewing tobacco nicotine dependence COVID-19 Asthma Empyema of left pleural space Multiple pulmonary emboli Morbid obesity with BMI of 40.0-44.9, adult suspected hypercoagulable disorder Home Medications ?Medication ?Instructions ?Recorded ?Last Taken ?Type metformin 500 mg tablet 1,000 mg PO BID 11/06/22 Unknown History tamsulosin 0.4 mg capsule 0.4 mg PO DAILY 04/22/23 Unknown History apixaban 5 mg tablet (Eliquis) 5 mg PO BID #60 tabs 09/30/23 Unknown Rx Allergy/AdvReac Type Severity Reaction Status Date / Time hydrocodone (From [place]) AdvReac Upset Verified 01/08/24 11:28 Stomach Family History Mother Diabetes Father Hypercoagulable state Surgical History S/P chest tube placement S/P pericardial window creation History of surgery on lower extremity Social History household members: spouse Smoking Status: Never smoker Smokeless tobacco user: chewing tobacco and other alcohol intake: never substance use type: does not use ROS ROS ED ROS Narrative Constitutional: Negative for weight loss, weakness. Positive for fever and chills Eyes: Negative for vision loss, vision change, double vision ENT: Negative for any sore throat, ear pain, congestion Cardiovascular: Negative for any chest pain, tightness, palpitations Respiratory: Negative for any sputum production, hemoptysis. Positive for cough, dyspnea, dyspnea on exertion, orthopnea Gastrointestinal: Negative for any abdominal pain, nausea, vomiting, diarrhea, constipation, blood in stool, blood in vomit : Negative for any urinary frequency, dysuria, retention, blood in urine Muscle skeletal: Negative for any neck pain, back pain. Positive generalized myalgias Neurological: Negative for any syncope, dizziness. Positive for headache Skin: Negative for any rashes, itching, abrasions, lacerations. Positive a red warm skin to the right medial knee to the right thigh Psychiatric: Negative for any depression, anxiety, stress, suicidal ideation, homicidal ideation Hematologic: Negative for any excessive bruising, easy bleeding EXAM Physical Exam Narrative Exam Narrative: Vital signs reviewed. Patient's oral temp here was 100 ?F, patient was tachycardic at a rate of 117, patient's skin did feel warm to the touch. Alert and oriented x 3. HEET: Head normocephalic atraumatic, TMs clear bilaterally. Posterior pharynx is clear, dry mucous membranes. Nares clear bilaterally. Neck: Supple with no lymphadenopathy or tenderness. No signs of meningismus. Cardiac: Tachycardic rate, no murmurs gallops or rubs, equal peripheral pulses bilaterally. Respiratory: Expiratory wheezes to bilateral lower lung decker. No chest tenderness. Abdomen: Soft, nontender, nondistended. No abdominal bruit or pulsatile masses. No hepatosplenomegaly Extremities: Patient has some edema, erythema to the right lower extremity. The redness starts to the distal knee medial all the way up to the thigh to the groin. This does appear to be more cellulitic, warm to the touch. It is tender to the touch as well. No signs of gross trauma or deformity. Active full range of motion of all extremities. Neuro: Cranial nerves II through XII intact, no focal neurological deficits. Skin: Clean dry and intact with no rash, purpura, petechiae, vesicles or pustules. Backs/flank: No CVA tenderness, no midline spinal tenderness, no deformity. Psych: Normal mood and affect. No SI, HI or acute psychosis. Const Vital Signs: 01/08/24 11:27 01/08/24 11:27 01/08/24 11:27 Temperature 99 F Temperature Source Temporal Pulse Rate 121 H 118 H Respiratory Rate 18 18 Respiratory Effort Normal Non-Labored Respiratory Depth Normal Respiratory Pattern Normal Blood Pressure 160/97 H 165/98 H Blood Pressure Mean 118 120 Pulse Ox 95 98 Oxygen Delivery Method Room Air Room Air Room Air 01/08/24 12:14 01/08/24 12:28 01/08/24 13:00 Temperature Temperature Source Pulse Rate 116 H 127 H Respiratory Rate 32 H 23 H Respiratory Effort Respiratory Depth Respiratory Pattern Tachypnea Blood Pressure 101/86 H Blood Pressure Mean 92 Pulse Ox 97 Oxygen Delivery Method Room Air Positive obese Nutritional Appearance: obese MDM MDM Lab Data Labs: Laboratory Results - last 24 hr 01/08/24 13:01 WBC 25.2 H RBC 5.32 Hgb 14.7 Hct 45.3 MCV 85.2 MCH 27.6 MCHC 32.5 RDW Std Deviation 44.1 H RDW Coeff of Annalisa 14.5 Plt Count 328 MPV 9.6 Immature Gran % (Auto) 0.500 Neut % (Auto) 83.4 H Lymph % (Auto) 9.8 L [place] % (Auto) 5.9 Eos % (Auto) 0.1 Baso % (Auto) 0.3 Absolute Neuts (auto) 21.1 H Absolute Lymphs (auto) 2.46 Nucleated RBC % 0 PT 14.9 INR 1.2 APTT 32.0 Sodium 135 L Potassium 4.1 Chloride 105 Carbon Dioxide 26.0 Anion Gap 4 L BUN 11 Creatinine 0.80 Estim Creat Clear Calc 211.30 Est GFR (MDRD) Af Amer 140 Est GFR (MDRD) Non-Af 116 BUN/Creatinine Ratio 13.8 Glucose 92 Lactic Acid 1.5 Calcium 9.5 Total Bilirubin 0.50 AST 15 ALT 35 Alkaline Phosphatase 97 Total Protein 7.5 Albumin 3.1 L Globulin 4.4 H Albumin/Globulin Ratio 0.7 L Radiography Diagnostic Testing: Clinical Impression(s) from Imaging Studies Chest X-Ray 01/08/24 13:15 IMPRESSION: Vascular congestion and mild degree of CHF. Electronically Signed: Shun Perez MD at 13:28 EDT , Treatment and Re-Evaluation :: Differential diagnosis includes however is not limited to: Sepsis, cellulitis, community-acquired pneumonia, bronchitis, DVT, PE Patient appears to be in no obvious respiratory distress however patient is tachycardic, patient is febrile here. Presenting to the emerged department with multiple complaints of shortness of breath, as well as fever and chills as well as redness to the right lower extremity. The right lower extremity is concerning for significant cellulitis. Patient does have a large leg it is covering most of his upper thigh. Patient's lung sounds show expiratory wheezes, concerning for bronchitis/reactive airway disease. Patient was given breathing treatments, septic workup will be obtained. Two-view chest x-ray. The right leg looks more cellulitis, he has had cellulitis there in the past. I have low suspicion for PE at this time secondary to the patient's fever. Patient will be given IV fluids, Tylenol. Patient be reevaluated. Patient was given 1 L normal saline. Patient CBC shows a significant leukocytosis with a white blood count of 25.2, patient's PT INR, APTT was negative. Patient's chemistries are unremarkable, blood glucose was 92, chest x-ray shows vascular congestion and mild degree of CHF. Patient's COVID-19 influenza RSV was negative. Patient's heart rate remains over 110, patient does meet sepsis criteria. Patient was started on Rocephin, azithromycin, this will cover both pulmonary as well as cellulitis. Patient lactic acid was negative. At this time, patient will be given 1 L normal saline, this is secondary to his history of CHF, fluid overload on chest x-ray. I will speak with hospitalist get the patient mid to the hospital. Discharge Plan Triage Chief Complaint: Shortness of Breath ED Midlevel Provider: Mata Rodrigez ED Provider: Stanley Fish Dx/Rx/DC Orders Clinical Impression: Sepsis, Cellulitis, Community acquired pneumonia, Bronchitis, CHF (congestive heart failure) Prescriptions: No Action metformin 500 mg tablet 1,000 mg PO BID tamsulosin 0.4 mg capsule 0.4 mg PO DAILY Eliquis 5 mg tablet 5 mg PO BID Qty: 60 1RF Primary Care Provider: Vickey Navarro Referrals: Vickey Navarro MD [Primary Care Provider] - Print Language: Danish Disposition Disposition: Acute Care Hospital [facility]
[2024-01-08] MEDS: Acetaminophen 500 MG Tablet 1000 MG PO (12:27)
[2024-01-08] MEDS: Albuterol 2.5 MG/3 ML VIAL.NEB. 5 MG INHALATION (12:28)
[2024-01-08] MEDS: Ipratropium/Albuterol Sulfate 3 ML AMPUL.NEB INHALATION ×2 (12:28→19:43)
[2024-01-08] MEDS: 0.9% Normal Saline (1000mL) 1,000 ML 999 ML IV (12:29)
[2024-01-08 13:14] LABS: Absolute Lymphocyte Count 2.46 X10^3/uL (0.83-4.51); Absolute Neutrophil Count 21.1 X10^3/uL (2.0-7.7); Basophil# 0.07 X10^3/uL; Basophil% 0.3 % (0-1); Eosinophil# 0.03 X10^3/uL; Eosinophils% 0.1 % (0-5); Hematocrit 45.3 % (40-54); Hemoglobin 14.7 g/dL (13.0-16.5); Lymphocyte # 2.46 X10^3/ul (0.83-4.51); Lymphocyte % 9.8 % (19-41); Mean Corp Hgb Conc 32.5 g/dL (32-36); Mean Corpuscular Hgb 27.6 pg (27.0-32.0); Mean Corpuscular Volume 85.2 fL (80-94); Mean Platelet Vol. 9.6 fl (6.2-12.0); Monocyte# 1.48 X10^3/uL; Monocyte% 5.9 % (0-10); NRBC Flagged by Analyzer 0 % (0-5); Neutrophil # 21.07 X10^3/uL (2.7-7.7); Neutrophil % 83.4 % (47-70); POSITIVE DIFFERENTIAL YES; Platelet Count 328 K/mm3 (150-450); RBC Distribution Width CV 14.5 % (11.6-14.6); RBC Distribution Width SD 44.1 fl (35.1-43.9); Red Blood Count 5.32 M/mm3 (4.6-6.2); White Blood Count 25.2 K/mm3 (4.4-11.0)
[2024-01-08 13:15] LABS: Differential Indicated SCAN CRITERIA MET
--- NOTE | 2024-01-08 13:15 | RAD_ITS ---
STUDY: X-RAY CHEST REASON FOR EXAM: Male, 38 years old. Cough. TECHNIQUE: PA and lateral views of the chest. COMPARISON: Comparison is made with prior study dated April 02, 2023. FINDINGS: Vascular congestion and mild CHF. There is no demonstrated pleural abnormality. There is borderline cardiomegaly. Normal mediastinum and cuca. Normal visualized pulmonary arteries. There is atherosclerotic tortuosity of the aortic arch and descending thoracic aorta. There are degenerative changes of the visualized thoracic spine. Normal visualized ribs, clavicles, and shoulders. There is no demonstrated abnormality of the visualized soft tissue structures of the upper abdomen. RAD/Chest PA and Lateral IMPRESSION: Vascular congestion and mild degree of CHF. Electronically Signed: Shun Perez MD at 13:28 EDT ,
[2024-01-08 13:32] LABS: International Normalized Ratio 1.2; Prothrombin Time (Protime)PT. 14.9 SECONDS (11.7-14.9)
[2024-01-08 13:39] LABS: Lactic Acid 1.5 mmol/L (0.4-1.9)
[2024-01-08 13:40] LABS: ALB/GLOB Ratio 0.7 RATIO (0.9-2.4); AST(SGOT) 15 U/L (15-37); Alanine Aminotransfer ALT/SGPT 35 U/L (16-61); Albumin, Serum 3.1 g/dL (3.2-5.0); Alkaline Phosphatase 97 U/L (45-117); Anion Gap 4 (5-15); BUN 11 mg/dL (7-18); BUN/Creat Ratio 13.8 RATIO (10-20); Calcium,Total 9.5 mg/dL (8.5-10.1); Chloride 105 mmol/L (98-107); EST Glomerular Filtration Rate 116 mL/min (>60); Est Glom Filt Rate - Afr Amer 140 mL/min (>60); Globulin 4.4 g/dL (2.2-4.2); Glucose 92 mg/dL (74-106); Potassium 4.1 mmol/L (3.5-5.1); Protein, Total 7.5 g/dL (6.4-8.2); Sodium Level 135 mmol/L (136-145)
[2024-01-08] MEDS: MethylPREDNISolone 125 MG/2 ML Vial 60 MG IV (13:50)
[2024-01-08] MEDS: Ceftriaxone 1 GM/50 ML BAG IV (14:09)
[2024-01-08] MEDS: Azithromycin 500 MG in Dextrose 5%-Water (250mL Bag) 250 ML 250 MG IV (14:10)
[2024-01-08 14:25] LABS: Differential Comment SCANNED; Platelet Estimate ADEQUATE (ADEQ); Red Cell Morphology NORM C+C NORMAL (NORM C&C)
--- NOTE | 2024-01-08 14:36 | CT_ITS ---
STUDY: CTA CHEST REASON FOR EXAM: Male, 38 years old. Pulmonary embolism RADIATION DOSAGE (If Supplied By Facility): CTDIvol = ( 11.47 ) mGy, DLP = ( 536.29 ) mGycm TECHNIQUE: The examination was performed with the intravenous administration of IV 100mL Isovue-370. Post-processing of the angiographic images was performed, with multiplanar reformation and 3D reconstruction. Individualized dose optimization techniques were used for this CT. COMPARISON: Comparison is made with prior chest regressed and earlier today as well as prior CT scan dated October 03, 2022. FINDINGS: Normal enhancement of the main pulmonary artery and right and left pulmonary arteries. Normal enhancement of the bilateral peripheral pulmonary arteries. There is no demonstrated pulmonary embolism. Normal thoracic aorta and visualized great vessels. There is no demonstrated aortic dissection. Normal heart and pericardium. Normal mediastinum. Normal hilar regions. Normal visualized trachea and bronchi. The lungs are well expanded. Mild degree of bibasilar atelectasis. Normal pleura. Normal chest wall structures. Normal osseous structures. Fatty infiltration of the liver. CT/CTA Chest W/WO Contrast IMPRESSION: No evidence of pulmonary embolism. Mild increased markings at the lung bases suggestive of linear atelectasis. Electronically Signed: Shun Perez MD at 15:11 EDT ,
--- NOTE | 2024-01-08 14:38 | HP.PCM.HOS_ITS ---
[facility] - General General Date of Admission: 01/08/24 Date of Service: 01/08/24 Chief Complaint: redness of LLE, shortness of breath HPI Narrative SUSANNA DURHAM, is a 38 M with a past medical history as outlined was admitted through the ED on 01/08/2024 with a complaint of shortness of breath and redness of his right lower extremity. He said he started having a fever the day before admission and his temperature fluctuated between 101 and 102 Fahrenheit. He also noted that the redness of his right lower extremity had spread up towards his thigh. He admits to a history of bronchitis and asthma and says he had been having shortness of breath and wheezing as well as coughing for several days. Cough was not productive. He denied any chest pain or palpitations, any dizziness, any nausea vomiting or any other symptoms. He denied any insect bites or any trauma to his right lower extremity. He does have a history of PE and was on Eliquis but says he was taken off of it within the last 6 months. Review of systems was otherwise negative. Vitals in the ED where blood pressure 123/64, pulse rate of 112 and respiratory rate of 23. He was saturating 95% on room air. CBC showed WBC of 25.2 with hemoglobin of 14.7 and platelets of 328. INR is 1.2. Chemistry shows sodium of 135 with potassium of 4.1 and bicarb of 26. Creatinine is 0.8. Respiratory panel was negative for COVID, influenza and RSV. Chest x-ray showed vascular congestion and mild degree of CHF and CTA of the chest showed no evidence of PE. He has been admitted to be managed for SIRS criteria likely due to right lower extremity cellulitis as well as acute exacerbation of asthma with some probable heart failure of unknown EF. [facility], [facility] Medical History (Updated 01/08/24 @ 15:40 by Mackenzie Hodges) Non-smoker Pericardial defect DVT (deep venous thrombosis) Right peroneal nerve injury Right knee pain JULIÁN (obstructive sleep apnea) Chewing tobacco nicotine dependence COVID-19 Asthma Empyema of left pleural space Multiple pulmonary emboli Morbid obesity with BMI of 40.0-44.9, adult suspected hypercoagulable disorder Home Medications ?Medication ?Instructions ?Recorded ?Last Taken ?Type metformin 1,000 mg tablet 1,000 mg PO BID diabetes 01/08/24 01/08/24 History tizanidine 4 mg tablet 4 mg PO BID PRN muscle relaxer 01/08/24 01/07/24 History Allergy/AdvReac Type Severity Reaction Status Date / Time hydrocodone (From [place]) AdvReac Upset Verified 01/08/24 11:28 Stomach Family History Mother Diabetes Father Hypercoagulable state Surgical History S/P chest tube placement S/P pericardial window creation History of surgery on lower extremity Social History household members: spouse Smoking Status: Never smoker Smokeless tobacco user: chewing tobacco and other alcohol intake: never substance use type: does not use ROS Constitutional Constitutional: Reports chills, fatigue, fever(s), malaise and weakness; Denies anorexia Eyes Eyes: Denies change in vision ENT HEENT: Denies dysphagia, headache(s), nasal congestion or sore throat Cardiovascular Cardiovascular: Reports dyspnea on exertion, palpitations and rapid heart rate; Denies chest pain, edema, lightheadedness, orthopnea, paroxysmal nocturnal dyspnea or syncope Respiratory/Chest Respiratory/Chest: Reports dyspnea, shortness of breath at rest and shortness of breath with exertion; Denies cough, excessive phlegm production, hemoptysis, productive cough or wheezing Gastrointestinal Gastrointestinal: Denies abdominal pain, constipation, diarrhea, nausea or vomiting Genitourinary Genitourinary: Denies burning urination or dysuria Musculoskeletal Musculoskeletal: Denies arthralgias Neurologic Neurologic: Denies confusion, dizziness, focal weakness, headache(s), numbness or seizure-like activity Psychiatric Psychiatric: Denies anxiety or depression Endocrine Endocrinology: Denies change in body appearance Vital Signs Vital Signs Vital Signs: 01/08/24 11:27 01/08/24 11:27 01/08/24 11:27 Temperature 99 F Temperature Source Temporal Pulse Rate 121 H 118 H Respiratory Rate 18 18 Respiratory Effort Normal Non-Labored Respiratory Depth Normal Respiratory Pattern Normal Blood Pressure 160/97 H 165/98 H Blood Pressure Mean 118 120 Pulse Ox 95 98 Oxygen Delivery Method Room Air Room Air Room Air 01/08/24 12:14 01/08/24 12:28 01/08/24 13:00 Temperature Temperature Source Pulse Rate 116 H 127 H Respiratory Rate 32 H 23 H Respiratory Effort Respiratory Depth Respiratory Pattern Tachypnea Blood Pressure 101/86 H Blood Pressure Mean 92 Pulse Ox 97 Oxygen Delivery Method Room Air Weight Weight: 396 lb Body Mass Index (BMI) 55.2 Physical Exam Const alert, oriented x3 and no apparent distress Constitutional Narrative: super morbid obesity General Appearance: cooperative HEENT normocephalic, head/scalp atraumatic and moist oral mucous membranes Mouth: oral and palatal mucosa normal Eyes PERRL, EOMs intact bilaterally and conjunctivae normal Neck no lymphadenopathy and supple Resp Resp Narrative: Mildly diminished breath sounds bibasilarly. Mild wheezing. Few crackles. On room air Cardio S1 normal heart sound, S2 normal heart sound and no murmurs Cardio Narrative: tachcyardic GI normal to inspection, nondistended, normoactive bowel sounds, soft to palpation, non-tender and non-distended Extremity no clubbing, cyanosis or edema Skin Skin Narrative: has erythema of the RLE extending from his ankle up to his mid inner thigh. No ulcerations noted. Mild differential warmth,no swelling Neuro oriented x3, CN's II-XII intact bilaterally and moves all extremities Sensorium / Orientation: awake and alert Motor Exam: strength 5/5 throughout Psych affect normal Results Lab / Micro Data 01/08/24 13:01 01/08/24 13:01 Labs: Laboratory Results - last 24 hr 01/08/24 13:01: WBC 25.2 H, RBC 5.32, Hgb 14.7, Hct 45.3, MCV 85.2, MCH 27.6, MCHC 32.5, RDW Std Deviation 44.1 H, RDW Coeff of Annalisa 14.5, Plt Count 328, MPV 9.6, Immature Gran % (Auto) 0.500, Neut % (Auto) 83.4 H, Lymph % (Auto) 9.8 L, [place] % (Auto) 5.9, Eos % (Auto) 0.1, Baso % (Auto) 0.3, Absolute Neuts (auto) 21.1 H, Absolute Lymphs (auto) 2.46, Nucleated RBC % 0, Differential Comment SCANNED, Platelet Estimate ADEQUATE, RBC Morphology NORM C+C, PT 14.9, INR 1.2, APTT 32.0, Sodium 135 L, Potassium 4.1, Chloride 105, Carbon Dioxide 26.0, Anion Gap 4 L, BUN 11, Creatinine 0.80, Estim Creat Clear Calc 211.30, Est GFR (MDRD) Af Amer 140, Est GFR (MDRD) Non-Af 116, BUN/Creatinine Ratio 13.8, Glucose 92, Lactic Acid 1.5, Calcium 9.5, Total Bilirubin 0.50, AST 15, ALT 35, Alkaline Phosphatase 97, B-Natriuretic Peptide 31.0, Total Protein 7.5, Albumin 3.1 L, G lobulin 4.4 H, Albumin/Globulin Ratio 0.7 L Micro: Microbiology 01/08/24 12:55 Mucosa - Nose SARS-CoV-2, Influenza & RSV (PCR) - Final Imaging Radiology Impression Chest X-Ray 01/08/24 13:15 IMPRESSION: Vascular congestion and mild degree of CHF. Electronically Signed: Shun Perez MD at 13:28 EDT , Assessment & Plan Assessment/Plan (1) Bronchitis: (2) Cellulitis: (3) CHF (congestive heart failure): (4) Sepsis: PLAN: Plan #Sepsis due to RLE cellulitis * admit to PCU * He is tachycardic and tachypneic. I think these are also likely related to the underlying bronchitis and asthma and probable heart failure exacerbation * start on IV vancomycin * Blood cultures * P.o. Tylenol as needed for pain * #Probable heart failure exacerbation * EF is unknown. Patient is tachypneic and tachycardic. Chest x-ray showed vascular congestion and mild degree of CHF. * In light of history of PE, CTA was done which was negative for any evidence of PE * Breathing treatments bronchodilators. Start diuresis with IV Lasix. Get 2D echo to evaluate EF. * Titrate oxygen as needed to maintain saturation above 90%. * Breathing treatments with bronchodilators. * IV Solu-Medrol 40 mg every 8 due to concerns for flareup of bronchitis. #Type 2 diabetes mellitus: On metformin 1000 mg twice daily. Insulin sliding scale. Accuchecks ACHS. #History of DVT and PE. * Patient was diagnosed with PE a year ago * Has been off of Eliquis for about 6 months according to patient. * CTA of the chest done was negative for any evidence of PE * DVT prophylaxis: On Lovenox 40 mg twice daily CODE STATUS: Full code * Patient counseled extensively about different types of CODE STATUS including full code, DNR CCA and DNR CCA. Patient elects to be full code. * Total [id number] time 16 minutes. # Charges/Coding Visit Charges Inpatient E&M: 20008 Init Hosp L3 Procedures Hospitalists Procedures: 17907 Advncd Care Plan 30 Min
[2024-01-08] MEDS: Cefazolin 1 GM/50 ML BAG IV (20:18)
[2024-01-08] MEDS: 0.9% Saline Lock 10 ML Syringe IV ×2 (20:18→21:15)
[2024-01-08] MEDS: Insulin Lispro 100 UNIT/ML INSULN.PEN SC (20:25)
[2024-01-08] MEDS: Vancomycin HCl 2,000 MG in 0.9% Normal Saline (500mL Bag) 500 ML 250 MG IV (21:17)
--- NOTE | 2024-01-08 21:32 | PCM.RX.CS ---
Consult Antibiotic Management Pharmacy has been consulted to manage selected antibiotic: Vancomycin Type of Intervention Type of Consult: New start Labs Labs: Sodium 135 mmol/L (136-145) L 01/08/24 13:01 Potassium 4.1 mmol/L (3.5-5.1) 01/08/24 13:01 Chloride 105 mmol/L (98-107) 01/08/24 13:01 Carbon Dioxide 26.0 mmol/L (21.0-32.0) 01/08/24 13:01 Anion Gap 4 (5-15) L 01/08/24 13:01 BUN 11 mg/dL (7-18) 01/08/24 13:01 Creatinine 0.80 mg/dL (0.70-1.30) 01/08/24 13:01 Est GFR (MDRD) Af Amer 140 mL/min (>60) 01/08/24 13:01 Est GFR (MDRD) Non-Af 116 mL/min (>60) 01/08/24 13:01 BUN/Creatinine Ratio 13.8 RATIO (10-20) 01/08/24 13:01 Glucose 92 mg/dL (74-106) 01/08/24 13:01 Microbiology Microbiology: Microbiology 01/08/24 12:55 Mucosa - Nose SARS-CoV-2, Influenza & RSV (PCR) - Final Dosing Weight Weight used for dosin.21 kg Estimated Creatinine Clearance Estimated Creatinine Clearance: 211 Goal Trough Goal Trough: 15-20 mcg/mL Pharmacy Plan for Drug Dosing Pharmacy Plan for Drug Dosing: Pharmacy Service will continue to monitor and adjust dosing as required. 2000MG LOADING DOSE, 1500MG Q8H TROUGH PRIOR TO 4TH DOSE Follow-Up Labs Follow-Up Labs: Trough: Vancomycin Date/Time Labs Ordered Labs to be done on [date and time ordered]: 01/08 @ 2100
[2024-01-08 22:30] LABS: Bedside Glucose 219 mg/dL (74-106)
[2024-01-09] MEDS: Cefazolin 1 GM/50 ML BAG IV ×4 (00:33→16:21)
[2024-01-09 02:45] VITALS: BP 157/88; PULSE 94; RESP 18; TEMP 36.1; O2SAT 95
[2024-01-09] MEDS: 0.9% Saline Lock 10 ML Syringe IV ×3 (05:03→16:26)
[2024-01-09] MEDS: Vancomycin HCl 1,500 MG in 0.9% Normal Saline (500mL Bag) 500 ML 250 MG IV ×2 (05:52→12:48)
[2024-01-09] MEDS: Insulin Lispro 100 UNIT/ML INSULN.PEN SC ×4 (06:14→21:51)
[2024-01-09] MEDS: Ipratropium/Albuterol Sulfate 3 ML AMPUL.NEB INHALATION (06:35)
[2024-01-09 06:36] VITALS: PULSE 93; RESP 18; O2SAT 97
[2024-01-09 06:49] LABS: Bedside Glucose 167 mg/dL (74-106)
[2024-01-09 07:41] LABS: Absolute Lymphocyte Count 1.27 X10^3/uL (0.83-4.51); Absolute Neutrophil Count 19.5 X10^3/uL (2.0-7.7); Basophil# 0.03 X10^3/uL; Basophil% 0.1 % (0-1); Hematocrit 46.6 % (40-54); Hemoglobin 14.6 g/dL (13.0-16.5); Lymphocyte # 1.27 X10^3/ul (0.83-4.51); Lymphocyte % 5.9 % (19-41); Mean Corp Hgb Conc 31.3 g/dL (32-36); Mean Corpuscular Hgb 27.1 pg (27.0-32.0); Mean Corpuscular Volume 86.5 fL (80-94); Mean Platelet Vol. 9.9 fl (6.2-12.0); Monocyte# 0.46 X10^3/uL; Monocyte% 2.1 % (0-10); NRBC Flagged by Analyzer 0 % (0-5); Neutrophil # 19.54 X10^3/uL (2.7-7.7); Neutrophil % 91.4 % (47-70); Platelet Count 352 K/mm3 (150-450); RBC Distribution Width CV 14.6 % (11.6-14.6); RBC Distribution Width SD 45.9 fl (35.1-43.9); Red Blood Count 5.39 M/mm3 (4.6-6.2); White Blood Count 21.4 K/mm3 (4.4-11.0)
--- NOTE | 2024-01-09 08:22 | PCM.PN.HOSP ---
Reason for Visit Reason for Visit: Diagnoses Sepsis, unspecified organism (01/08/24) Heart failure, unspecified (01/08/24) Bronchitis, not specified as acute or chronic (01/08/24) Cellulitis, unspecified (01/08/24) Subjective Subjective Patient is a 38-year-old gentleman admitted with progressive generalized weakness with associated cough. Patient was found to have right lower extremity erythema and warmth consistent with cellulitis admitted to a monitored bed for further management Objective Data Objective Data Vital Signs: Vital Signs Temp Pulse Resp BP Pulse Ox O2 Del Method 97.0 F L 93 18 157/88 H 97 Room Air 01/09/24 02:45 01/09/24 06:36 01/09/24 06:36 01/09/24 02:45 01/09/24 06:36 01/09/24 08:18 Oxygen Delivery Method Room Air Weight: 176.2 kg Body Mass Index (BMI) 54.1 Intake & Output: Intake and Output for Last 24 Hours 01/07/24 01/08/24 01/09/24 23:59 23:59 23:59 Intake Total 1895.00 / 2095.00 300 / 300 Balance 1895.00 / 2095.00 300 / 300 Lab / Micro Data 01/09/24 06:30 01/08/24 13:01 Labs: Laboratory Results - last 24 hr 01/08/24 13:01: WBC 25.2 H, RBC 5.32, Hgb 14.7, Hct 45.3, MCV 85.2, MCH 27.6, MCHC 32.5, RDW Std Deviation 44.1 H, RDW Coeff of Annalisa 14.5, Plt Count 328, MPV 9.6, Immature Gran % (Auto) 0.500, Neut % (Auto) 83.4 H, Lymph % (Auto) 9.8 L, [place] % (Auto) 5.9, Eos % (Auto) 0.1, Baso % (Auto) 0.3, Absolute Neuts (auto) 21.1 H, Absolute Lymphs (auto) 2.46, Nucleated RBC % 0, Differential Comment SCANNED, Platelet Estimate ADEQUATE, RBC Morphology NORM C+C, PT 14.9, INR 1.2, APTT 32.0, Sodium 135 L, Potassium 4.1, Chloride 105, Carbon Dioxide 26.0, Anion Gap 4 L, BUN 11, Creatinine 0.80, Estim Creat Clear Calc 211.30, Est GFR (MDRD) Af Amer 140, Est GFR (MDRD) Non-Af 116, BUN/Creatinine Ratio 13.8, Glucose 92, Lactic Acid 1.5, Calcium 9.5, Total Bilirubin 0.50, AST 15, ALT 35, Alkaline Phosphatase 97, B-Natriuretic Peptide 31.0, Total Protein 7.5, Albumin 3.1 L, Globulin 4.4 H, Albumin/Globulin Ratio 0.7 L 01/08/24 20:24: POC Glucose 219 H 01/09/24 06:13: POC Glucose 167 H 01/09/24 06:30: WBC 21.4 H, RBC 5.39, Hgb 14.6, Hct 46.6, MCV 86.5, MCH 27.1, MCHC 31.3 L, RDW Std Deviation 45.9 H, RDW Coeff of Annalisa 14.6, Plt Count 352, MPV 9.9, Immature Gran % (Auto) 0.500, Neut % (Auto) 91.4 H, Lymph % (Auto) 5.9 L, [place] % (Auto) 2.1, Eos % (Auto) 0.0, Baso % (Auto) 0.1, Absolute Neuts (auto) 19.5 H, Absolute Lymphs (auto) 1.27, Nucleated RBC % 0 Micro: Microbiology 01/08/24 12:55 Mucosa - Nose SARS-CoV-2, Influenza & RSV (PCR) - Final Radiography Diagnostic Testing: Radiology Impression Chest X-Ray 01/08/24 13:15 IMPRESSION: Vascular congestion and mild degree of CHF. Electronically Signed: Shun Perez MD at 13:28 EDT , Chest CTA 01/08/24 14:36 IMPRESSION: No evidence of pulmonary embolism. Mild increased markings at the lung bases suggestive of linear atelectasis. Electronically Signed: Shun Perez MD at 15:11 EDT , Physical Exam Narrative GENERAL: cooperative HEENT: Atraumatic; normocephalic EYES; Anicteric, Normal Conjunctiva NECK; supple, normal thyroid, RESPIRATORY: Diminished to auscultation CARDIOVASCULAR: Regular S1 S2, GI: soft, normoactive bowel sounds, : No Renal angle tenderness; EXTREMITIES: Mild erythema on the medial aspect of the right thigh MUSCULOSKELETAL: no muscle wasting NEURO: Awake; no lateralizing signs. SKIN: No Rash PSYCH; Flat affect Assessment & Plan Assessment/Plan (1) Bronchitis: (2) Cellulitis: (3) CHF (congestive heart failure): (4) Sepsis: PLAN: Plan Patient is a 38-year-old gentleman admitted with progressive generalized weakness with associated cough. Patient was found to have right lower extremity erythema and warmth consistent with cellulitis admitted to a monitored bed for further management 1. Sepsis ? Secondary to right lower extremity cellulitis ? Patient started on broad-spectrum antibiotic therapy with vancomycin as well as cefazolin, cultures sent 2. Suspected congestive heart failure with preserved ejection fraction ? Chest x-ray obtained on admission demonstrated vascular congestion with mild degree of CHF. Patient placed on diuretic therapy repeat echo ordered 3. Acute bronchitis ? Patient was started on Solu-Medrol in addition to bronchodilator treatment 4. 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 CTA on admission was negative for PE 5. Diabetes mellitus type II -patient's oral hypoglycemics held. Placed on long acting insulin, Accu-Cheks a.c. and at bedtime and covered with sliding scale insulin 6. Class III obesity with BMI of 54.2 ? Complicating care weight loss advised 7. DVT prophylaxis ? Lovenox Time spent in the patient's overall evaluation,decision-making process, review of diagnostic data, adjustment of management, discussion with other providers, nursing nursing and ancillary staff involved in patient's care documentation,52 Minutes Charges/Coding Visit Charges Inpatient E&M: 93743 [facility] Hosp L3
[2024-01-09 08:45] VITALS: BP 147/82; PULSE 114; RESP 18; TEMP 36.7; O2SAT 98
[2024-01-09 09:22] LABS: Anion Gap 7 (5-15); BUN 11 mg/dL (7-18); BUN/Creat Ratio 17.2 RATIO (10-20); Calcium,Total 9.7 mg/dL (8.5-10.1); Chloride 104 mmol/L (98-107); Creatinine, Serum 0.64 mg/dL (0.70-1.30); EST Glomerular Filtration Rate 150 mL/min (>60); Est Glom Filt Rate - Afr Amer 182 mL/min (>60); Estimated Creatinine Clearance 261.04 ml/min; Glucose 154 mg/dL (74-106); Potassium 4.1 mmol/L (3.5-5.1); Sodium Level 134 mmol/L (136-145)
[2024-01-09] MEDS: Furosemide 40 MG/4 ML Vial IV ×2 (09:46→16:26)
[2024-01-09 12:00] LABS: Bedside Glucose 229 mg/dL (74-106)
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
[2024-01-09 14:45] VITALS: BP 129/61; PULSE 104; RESP 18; TEMP 36.3; O2SAT 96
--- NOTE | 2024-01-09 15:17 | CHAPLAIN ---
Type of Pastoral Visit _x__ Initial Visit ___ Follow-up Visit ___ On-call Visit ___ General Patient Visit ___ Spiritual Assessment ___ Family Conference ___ Bereavement ___ Rapid Response ___ Code Blue ___ Other (describe below) Pastoral Care Referral From _x__ Patient ___ Family ___ Nurse ___ Physician ___ Automobile And Property Underwriter ___ Contact Representative ___ Other (describe below) Sacrament/Intervention ___ Active listening ___ Anointing ___ Orthodox ___ Bereavement ___ Communion ___ Latanya exploration ___ ___ Life review ___ Prayer ___ Reconciliation ___ Sacrament of Sick _x__ Supportive presence ___ Wedding ___ Other (describe below) Pastoral Comments patient was sitting up in the chair and his mother had just walked into the room before this tax professional; pt states that he is doing better, has no concerns, and is just sad that he is missing work; offer of support for a future time if desired since he just had a visitor and pt agrees
[2024-01-09 17:22] LABS: Bedside Glucose 220 mg/dL (74-106)
[2024-01-09 20:45] VITALS: BP 129/71; PULSE 99; RESP 16; TEMP 36.7; O2SAT 97
[2024-01-09 21:02] LABS: Vancomycin, Trough Level 12.9 ug/mL (5.0-15.0)
[2024-01-09] MEDS: Vancomycin HCl 1,750 MG in 0.9% Normal Saline (500mL Bag) 500 ML 250 MG IV (21:44)
[2024-01-09] MEDS: Vancomycin Trough/Random Due 1 LAB MC (21:44)
--- NOTE | 2024-01-09 21:52 | PCM.RX.CS ---
Consult Antibiotic Management Pharmacy has been consulted to manage selected antibiotic: Vancomycin Type of Intervention Type of Consult: Follow-up Labs Labs: Sodium 134 mmol/L (136-145) L 01/09/24 06:30 Potassium 4.1 mmol/L (3.5-5.1) 01/09/24 06:30 Chloride 104 mmol/L (98-107) 01/09/24 06:30 Carbon Dioxide 23.0 mmol/L (21.0-32.0) 01/09/24 06:30 Anion Gap 7 (5-15) 01/09/24 06:30 BUN 11 mg/dL (7-18) 01/09/24 06:30 Creatinine 0.64 mg/dL (0.70-1.30) L 01/09/24 06:30 Est GFR (MDRD) Af Amer 182 mL/min (>60) 01/09/24 06:30 Est GFR (MDRD) Non-Af 150 mL/min (>60) 01/09/24 06:30 BUN/Creatinine Ratio 17.2 RATIO (10-20) 01/09/24 06:30 Glucose 154 mg/dL (74-106) H 01/09/24 06:30 Vancomycin Trough 12.9 ug/mL (5.0-15.0) 01/09/24 20:35 Microbiology Microbiology: Microbiology 01/08/24 12:55 Mucosa - Nose SARS-CoV-2, Influenza & RSV (PCR) - Final Goal Trough Goal Trough: 15-20 mcg/mL Pharmacy Plan for Drug Dosing Pharmacy Plan for Drug Dosing: Pharmacy Service will continue to monitor and adjust dosing as required. TROUGH 12.9 @ 8 HOURS. INCREASE TO 1750 Q8H AND FOLLOW UP TROUGH PRIOR TO 4TH DOSE Follow-Up Labs Follow-Up Labs: Trough: Vancomycin Date/Time Labs Ordered Labs to be done on [date and time ordered]: 01/09 @ 2100
[2024-01-09 22:14] LABS: Bedside Glucose 163 mg/dL (74-106)
[2024-01-10] MEDS: Ipratropium/Albuterol Sulfate 3 ML AMPUL.NEB INHALATION (00:08)
[2024-01-10 00:10] VITALS: PULSE 87; RESP 18; O2SAT 99
[2024-01-10] MEDS: Cefazolin 1 GM/50 ML BAG IV ×3 (00:36→11:56)
[2024-01-10 03:00] VITALS: BP 130/70; PULSE 101; RESP 18; TEMP 36.8; O2SAT 98
[2024-01-10] MEDS: Vancomycin HCl 1,750 MG in 0.9% Normal Saline (500mL Bag) 500 ML 250 MG IV ×2 (04:53→14:19)
[2024-01-10 06:40] LABS: Absolute Lymphocyte Count 3.94 X10^3/uL (0.83-4.51); Absolute Neutrophil Count 9.3 X10^3/uL (2.0-7.7); Basophil# 0.06 X10^3/uL; Basophil% 0.4 % (0-1); Eosinophil# 0.06 X10^3/uL; Eosinophils% 0.4 % (0-5); Hemoglobin 14.1 g/dL (13.0-16.5); Lymphocyte # 3.94 X10^3/ul (0.83-4.51); Lymphocyte % 26.7 % (19-41); Mean Corp Hgb Conc 30.7 g/dL (32-36); Mean Corpuscular Volume 88.1 fL (80-94); Mean Platelet Vol. 10.4 fl (6.2-12.0); Monocyte# 1.32 X10^3/uL; NRBC Flagged by Analyzer 0 % (0-5); Neutrophil % 63.1 % (47-70); Platelet Count 294 K/mm3 (150-450); RBC Distribution Width CV 14.6 % (11.6-14.6); RBC Distribution Width SD 46.8 fl (35.1-43.9); Red Blood Count 5.22 M/mm3 (4.6-6.2); White Blood Count 14.7 K/mm3 (4.4-11.0)
[2024-01-10 06:58] LABS: Anion Gap 9 (5-15); BUN 19 mg/dL (7-18); BUN/Creat Ratio 28.3 RATIO (10-20); Calcium,Total 8.7 mg/dL (8.5-10.1); Chloride 107 mmol/L (98-107); Creatinine, Serum 0.67 mg/dL (0.70-1.30); EST Glomerular Filtration Rate 142 mL/min (>60); Est Glom Filt Rate - Afr Amer 172 mL/min (>60); Estimated Creatinine Clearance 249.35 ml/min; Glucose 107 mg/dL (74-106); Phosphorus 3.2 mg/dL (2.5-4.9); Potassium 4.1 mmol/L (3.5-5.1); Sodium Level 141 mmol/L (136-145)
[2024-01-10 07:30] LABS: Bedside Glucose 112 mg/dL (74-106)
--- NOTE | 2024-01-10 07:46 | PN.HOSP_ITS ---
Reason for Visit Reason for Visit: Diagnoses Sepsis, unspecified organism (01/08/24) Heart failure, unspecified (01/08/24) Bronchitis, not specified as acute or chronic (01/08/24) Cellulitis, unspecified (01/08/24) Subjective Subjective Patient seen erythema involving the right lower extremity significantly improved. Awaiting echo result prior to assessment for discharge Objective Data Objective Data Vital Signs: Vital Signs Temp Pulse Resp BP Pulse Ox O2 Del Method 98.2 F 101 H 18 130/70 H 98 Room Air 01/10/24 03:00 01/10/24 03:00 01/10/24 03:00 01/10/24 03:00 01/10/24 03:00 01/10/24 03:00 Oxygen Delivery Method Room Air Weight: 176.2 kg Body Mass Index (BMI) 54.1 Intake & Output: Intake and Output for Last 24 Hours 01/08/24 01/09/24 01/10/24 23:59 23:59 23:59 Intake Total 1895.00 / 2095.00 2300 / 2600 1285 / 1285 Balance 1895.00 / 2095.00 2300 / 2600 1285 / 1285 Lab / Micro Data 01/10/24 05:35 01/10/24 05:35 Labs: Laboratory Results - last 24 hr 01/09/24 06:30: Sodium 134 L, Potassium 4.1, Chloride 104, Carbon Dioxide 23.0, Anion Gap 7, BUN 11, Creatinine 0.64 L, Estim Creat Clear Calc 261.04, Est GFR (MDRD) Af Amer 182, Est GFR (MDRD) Non-Af 150, BUN/Creatinine Ratio 17.2, G lucose 154 H, Calcium 9.7 01/09/24 11:18: POC Glucose 229 H 01/09/24 16:16: POC Glucose 220 H 01/09/24 20:35: Vancomycin Trough 12.9 01/09/24 21:50: POC Glucose 163 H 01/10/24 05:35: WBC 14.7 H, RBC 5.22, Hgb 14.1, Hct 46.0, MCV 88.1, MCH 27.0, M CHC 30.7 L, RDW Std Deviation 46.8 H, RDW Coeff of Annalisa 14.6, Plt Count 294, MPV 10.4, Immature Gran % (Auto) 0.400, Neut % (Auto) 63.1, Lymph % (Auto) 26.7, [place] % (Auto) 9.0, Eos % (Auto) 0.4, Baso % (Auto) 0.4, Absolute Neuts (auto) 9.3 H, Absolute Lymphs (auto) 3.94, Nucleated RBC % 0, Sodium 141, Potassium 4.1, Chloride 107, Carbon Dioxide 25.0, Anion Gap 9, BUN 19 H, Creatinine 0.67 L , Estim Creat Clear Calc 249.35, Est GFR (MDRD) Af Amer 172, Est GFR (MDRD) Non- Af 142, BUN/Creatinine Ratio 28.3 H, Glucose 107 H, Calcium 8.7, Phosphorus 3.2, Magnesium 2.0 01/10/24 07:10: POC Glucose 112 H Micro: Microbiology 01/08/24 12:55 Mucosa - Nose SARS-CoV-2, Influenza & RSV (PCR) - Final Physical Exam Narrative GENERAL: cooperative HEENT: Atraumatic; normocephalic EYES; Anicteric, Normal Conjunctiva NECK; supple, normal thyroid, RESPIRATORY: Diminished to auscultation CARDIOVASCULAR: Regular S1 S2, GI: soft, normoactive bowel sounds, : No Renal angle tenderness; EXTREMITIES: Mild erythema on the medial aspect of the right thigh MUSCULOSKELETAL: no muscle wasting NEURO: Awake; no lateralizing signs. SKIN: No Rash PSYCH; Flat affect Assessment & Plan Assessment/Plan (1) Bronchitis: (2) Cellulitis: (3) CHF (congestive heart failure): (4) Sepsis: PLAN: Plan Patient is a 38-year-old gentleman admitted with progressive generalized weakness with associated cough. Patient was found to have right lower extremity erythema and warmth consistent with cellulitis admitted to a monitored bed for further management 1. Sepsis ? Secondary to right lower extremity cellulitis ? Patient started on broad-spectrum antibiotic therapy with vancomycin as well as cefazolin, cultures sent ? 01/10/2024; patient has responded to treatment 2. Suspected congestive heart failure with preserved ejection fraction ? Chest x-ray obtained on admission demonstrated vascular congestion with mild degree of CHF. Patient placed on diuretic therapy repeat echo ordered -01/10/2024; echo ordered will await results prior to discharge 3. Acute bronchitis ? Patient was started on Solu-Medrol in addition to bronchodilator treatment 4. 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 CTA on admission was negative for PE 5. Diabetes mellitus type II -patient's oral hypoglycemics held. Placed on long acting insulin, Accu-Cheks a.c. and at bedtime and covered with sliding scale insulin 6. Class III obesity with BMI of 54.2 ? Complicating care weight loss advised 7. DVT prophylaxis ? Lovenox Time spent in the patient's overall evaluation,decision-making process, review of diagnostic data, adjustment of management, discussion with other providers, nursing nursing and ancillary staff involved in patient's care documentation,36 Minutes
[2024-01-10 08:06] VITALS: O2SAT 96
--- NOTE | 2024-01-10 09:13 | ECHOCS_ITS ---
Version 2 Reason For Study: CONGESTIVE HEART FAILURE Procedure This was a 2D Doppler, Color Flow transthoracic echocardiogram. The study was technically difficult. Contrast injection was performed. Exam performed portable in patient room. Left Ventricle Normal LV size. Moderate concentric left ventricular hypertrophy. Left ventricular systolic function is normal. The left ventricular ejection fraction is 55 %. Stage 1 diastolic dysfunction. No regional wall motion abnormalities noted. Right Ventricle Normal RV size. Normal systolic function. Mitral Valve Normal mitral valve. Tricuspid Valve Normal tricuspid valve. Great Vessels Normal aortic root. The pulmonary artery is normal size. Normal inferior vena cava. Pericardium/Pleural No pericardial effusion. Medication Diluted definity 3ml given slow IV push to enhance endocardial definition. MMode/2D Measurements & Calculations LVIDd: 5.1 cm IVSd: 1.5 cm LVOT diam: 2.4 cm LVIDs: 3.6 cm LVPWd: 1.5 cm LVOT area: 4.6 cm2 RVDd: 4.5 cm FS: 29.6 % Ao root diam: 3.4 cm LAV(MOD-bp): 45.7 ml LVAd ap4: 33.9 cm2 LAV(MOD-bp) Indexed: 16.4 ml/m2 LVLd ap4: 8.5 cm LAV(MOD-sp2): 39.3 ml EDV(MOD-sp4): 108.5 ml LAV(MOD-sp4): 48.0 ml EDV(sp4-el): 114.6 ml LVAs ap4: 21.4 cm2 LVLs ap4: 7.1 cm ESV(MOD-sp4): 52.6 ml ESV(sp4-el): 54.2 ml EF(MOD-sp4): 51.5 % EF(sp4-el): 52.7 % SV(MOD-sp4): 55.9 ml SV(MOD-sp2): 52.4 ml LVAd ap2: 32.1 cm2 LVLd ap2: 7.8 cm EDV(MOD-sp2): 104.7 ml EDV(sp2-el): 112.2 ml LVAs ap2: 20.0 cm2 LVLs ap2: 6.2 cm ESV(MOD-sp2): 52.3 ml ESV(sp2-el): 54.3 ml EF(MOD-sp2): 50.1 % SV(sp4-el): 60.4 ml LA A4 area: 17.1 cm2 LA dimension(2D): 4.5 cm TAPSE: 2.1 cm RA A4 area: 18.5 cm2 Time Measurements MV dec time: 0.10 sec Doppler Measurements & Calculations MV E max donald: 62.2 cm/sec Lat Peak E' Donald: 11.9 cm/sec Med Peak E' Donald: 11.9 cm/sec MV A max donald: 78.5 cm/sec E/E' lat: 5.2 E/E' med: 5.2 MV E/A: 0.79 MV dec slope: 654.8 cm/sec2 Ao V2 max: 92.8 cm/sec LV V1 max: 91.6 cm/sec Ao max P.4 mmHg LV V1 max P.4 mmHg CR(V,D): 4.6 cm2 PA V2 max: 96.7 cm/sec PA max PG (full): 1.7 mmHg ECHO/Echo Complete W/ Contrast Interpretation Summary Normal LV size. Left ventricular systolic function is normal. The left ventricular ejection fraction is 55 %. Stage 1 diastolic dysfunction. Contrast injection was performed. Ordering Physician: Dewey Reno Referring Physician: Stanley Fish Performed By: Christa Delagdo RDCS
--- NOTE | 2024-01-10 09:21 | DS.PCM_ITS ---
Providers Date of Admission: 01/08/24 Date of Discharge: 01/10/24 Primary Care Physician: Vickey Navarro MD Reason For Visit: SIRS CRITERIA, CELLULITIS Diagnosis Discharge Diagnosis (1) Bronchitis: Status: Acute Code(s): J40 - Bronchitis, not specified as acute or chronic (2) Cellulitis: Status: Acute Code(s): L03.90 - Cellulitis, unspecified (3) CHF (congestive heart failure): Status: Acute Code(s): I50.9 - Heart failure, unspecified (4) Sepsis: Status: Acute Code(s): A41.9 - Sepsis, unspecified organism Plan Patient is a 38-year-old gentleman admitted with progressive generalized weakness with associated cough. Patient was found to have right lower extremity erythema and warmth consistent with cellulitis admitted to a monitored bed for further management 1. Sepsis ? Secondary to right lower extremity cellulitis ? Patient started on broad-spectrum antibiotic therapy with vancomycin as well as cefazolin, cultures sent ? 01/10/2024; patient has responded to treatment 2. Acute congestive heart failure with preserved ejection fraction ? Chest x-ray obtained on admission demonstrated vascular congestion with mild degree of CHF. Patient placed on diuretic therapy repeat echo ordered -01/10/2024; echo ordered will await results prior to discharge. 2D echo demonstrated Normal LV size. Left ventricular systolic function is normal. The left ventricular ejection fraction is 55 %. Stage 1 diastolic dysfunction. Contrast injection was performed. 3. Acute bronchitis ? Patient was started on Solu-Medrol in addition to bronchodilator treatment 4. 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 CTA on admission was negative for PE 5. Diabetes mellitus type II -patient's oral hypoglycemics held. Placed on long acting insulin, Accu-Cheks a.c. and at bedtime and covered with sliding scale insulin 6. Class III obesity with BMI of 54.2 ? Complicating care weight loss advised 7. DVT prophylaxis ? Lovenox 8. Elevated blood pressure ? Consistent with newly diagnosis hypertension patient was prescribed losartan 25 mg p.o. twice daily on discharge Time spent in the patient's overall evaluation,decision-making process, review of diagnostic data, adjustment of management, discussion with other providers, nursing nursing and ancillary staff involved in patient's care documentation,36 Minutes Medications at Discharge Home Medications metformin 1,000 mg tablet 1,000 mg PO BID diabetes 01/08/24 tizanidine 4 mg tablet 4 mg PO BID PRN muscle relaxer 01/08/24 cefdinir 300 mg capsule 300 mg PO BID #14 caps 01/10/24 furosemide 40 mg tablet (Lasix) 40 mg PO DAILY #60 tabs 01/10/24 losartan 25 mg tablet 25 mg PO BID #120 tabs 01/10/24 prednisone 20 mg tablet 20 mg PO BID #10 tabs 01/10/24 Physical Exam Narrative GENERAL: cooperative HEENT: Atraumatic; normocephalic EYES; Anicteric, Normal Conjunctiva NECK; supple, normal thyroid, RESPIRATORY: Diminished to auscultation CARDIOVASCULAR: Regular S1 S2, GI: soft, normoactive bowel sounds, : No Renal angle tenderness; EXTREMITIES: Mild erythema on the medial aspect of the right thigh MUSCULOSKELETAL: no muscle wasting NEURO: Awake; no lateralizing signs. SKIN: No Rash PSYCH; Flat affect Weight / BMI Weight Weight: 176.2 kg Body Mass Index (BMI) 54.1 ABG / Lab / Microbiology Data 01/10/24 05:35 01/10/24 05:35 Laboratory: Laboratory Results - last 24 hr 01/09/24 06:30: Sodium 134 L, Potassium 4.1, Chloride 104, Carbon Dioxide 23.0, Anion Gap 7, BUN 11, Creatinine 0.64 L, Estim Creat Clear Calc 261.04, Est GFR (MDRD) Af Amer 182, Est GFR (MDRD) Non-Af 150, BUN/Creatinine Ratio 17.2, G lucose 154 H, Calcium 9.7 01/09/24 11:18: POC Glucose 229 H 01/09/24 16:16: POC Glucose 220 H 01/09/24 20:35: Vancomycin Trough 12.9 01/09/24 21:50: POC Glucose 163 H 01/10/24 05:35: WBC 14.7 H, RBC 5.22, Hgb 14.1, Hct 46.0, MCV 88.1, MCH 27.0, M CHC 30.7 L, RDW Std Deviation 46.8 H, RDW Coeff of Annalisa 14.6, Plt Count 294, MPV 10.4, Immature Gran % (Auto) 0.400, Neut % (Auto) 63.1, Lymph % (Auto) 26.7, [place] % (Auto) 9.0, Eos % (Auto) 0.4, Baso % (Auto) 0.4, Absolute Neuts (auto) 9.3 H, Absolute Lymphs (auto) 3.94, Nucleated RBC % 0, Sodium 141, Potassium 4.1, Chloride 107, Carbon Dioxide 25.0, Anion Gap 9, BUN 19 H, Creatinine 0.67 L , Estim Creat Clear Calc 249.35, Est GFR (MDRD) Af Amer 172, Est GFR (MDRD) Non- Af 142, BUN/Creatinine Ratio 28.3 H, Glucose 107 H, Calcium 8.7, Phosphorus 3.2, Magnesium 2.0 01/10/24 07:10: POC Glucose 112 H Microbiology: Microbiology 01/08/24 12:55 Mucosa - Nose SARS-CoV-2, Influenza & RSV (PCR) - Final D/C Instructions Discharge Diet: 1800 Calorie Control Diet, 8 Cup Fluid Restriction and 2000 mg Sodium Diet Discharge Activity: Return to Normal Activity Call your doctor if you observe: Fever of 101 or Higher, Shortness of breath, Fainting spells and Chest pain Meaningful Use Info Meaningful Use Meaningful Use Diagnoses (Choose all that apply): CHF CHF CHRISTIANE/ARB ordered at discharge?: Yes Documented LVEF (%): 55 Ischemic Stroke Statin Dosing Therapy Reference: STATIN DOSE THERAPY REFERENCE: * Patients > 75 years receive moderate or high dose statin therapy. * Patients 75 years or YOUNGER should receive HIGH intensity statin dose unless contraindicated. You will be required to document reason for non-treatment if statin daily dose does not meet guidelines. HIGH DOSE STATIN THERAPY DAILY Atorvastatin > than or = to 40 mg Rosuvastatin > than or = to 20 mg Amlodipine + Atorvastatin > than or = to 2.5/40 mg Ezetimibe + Simvastatin 10/80 mg Simvastatin 80mg Discharge Plan Admission Admit Date/Time: 01/08/24 14:32 Attending Provider: Dewey Reno Primary Care Provider: Vickey Navarro Consulting Providers: Yola Osullivan Discharge Orders/Prescriptions Prescriptions: New furosemide [Lasix] 40 mg tablet 40 mg PO DAILY Qty: 60 0RF cefdinir 300 mg capsule 300 mg PO BID Qty: 14 0RF prednisone 20 mg tablet 20 mg PO BID Qty: 10 0RF losartan 25 mg tablet 25 mg PO BID Qty: 120 0RF Continued tizanidine 4 mg tablet 4 mg PO BID PRN (Reason: muscle relaxer) metformin 1,000 mg tablet 1,000 mg PO BID Referrals / Follow Up: Vickey Navarro MD [Primary Care Provider] - Within 2 Weeks Disposition Disposition (needs filled in before D/C Order can be placed): Home, Self Care Charges/Coding Visit Charges Inpatient E&M: 60956 Disch Hosp >30min
[2024-01-10 10:39] VITALS: BP 144/88; PULSE 86; RESP 16; TEMP 36.8; O2SAT 97
[2024-01-10] MEDS: predniSONE 20 MG Tablet 40 MG PO (10:41)
[2024-01-10] MEDS: 0.9% Saline Lock 10 ML Syringe IV (10:42)
[2024-01-10] MEDS: Furosemide 40 MG/4 ML Vial IV (11:57)
[2024-01-10 12:51] VITALS: BP 132/82
[2024-01-10 14:06] VITALS: BP 145/98; PULSE 93; RESP 18; TEMP 36.7; O2SAT 97
[2024-01-10 16:44] LABS: Bedside Glucose 93 mg/dL (74-106)
== END 2024-01-10 16:21 | disposition home or self-care (01) | DRG 194 ==
LOC: ED 17:10 → PCU 18:25
PROVIDERS: Nurse Practitioner; Admitting Provider Student in an Organized Health Care Education/Training Program; Emergency Provider Emergency Medicine; PCP Family Medicine; Referring Provider Emergency Medicine; Visit Provider Internal Medicine
DX: I11.0 Hypertensive heart disease with heart failure (principal); I50.31 Acute diastolic (congestive) heart failure; Z68.43 Body mass index [BMI] 50.0-59.9, adult; E66.01 Morbid (severe) obesity due to excess calories; E11.9 Type 2 diabetes mellitus without complications; L03.115 Cellulitis of right lower limb; J20.9 Acute bronchitis, unspecified; G47.33 Obstructive sleep apnea (adult) (pediatric); Z86.718 Personal history of other venous thrombosis and embolism; Z86.16 Personal history of COVID-19; Z79.84 Long term (current) use of oral hypoglycemic drugs; Z86.711 Personal history of pulmonary embolism; F17.220 Nicotine dependence, chewing tobacco, uncomplicated
CPT/HCPCS: 36415; 71046; 71275; 80048; 80053; 80202; 82962; 83605; 83735; 83880; 84100; 85025; 85610; 85730; 87040; 87086; 87631; 93005; 93306; 94640; 96361; 96365; 96366; 96367; 96375; 96376; 99221; 99252; 99285; J7030; J7040; J7050; Q9957; Q9967; A4216; C8929; G0378; G0463; J1940

== ENCOUNTER 2024-06-17 09:19 | Observation (INO) | payer MEDICAID, SELFPAY ==
[2024-06-17] VITALS (11 sets, daily range): BP systolic 97–164; BP diastolic 33–95; PULSE 102–127; RESP 17–22; TEMP 36.8–38.1; O2SAT 93–98; BMI 54.4; BMI 52.9
--- NOTE | 2024-06-17 09:35 | EKG12_ITS ---
Test Reason : Blood Pressure : */* mmHG Vent. Rate : 120 BPM Atrial Rate : 120 BPM P-R Int : 154 ms QRS Dur : 86 ms QT Int : 300 ms P-R-T Axes : 47 114 16 degrees QTcB Int : 424 ms Sinus tachycardia Right axis deviation Abnormal ECG Confirmed by CRISTIAN RAMSEY, MIRANDA ([id number]), food expeditor CAT OSWALD ([id number]) on 06/21/2024 8:04:10 AM Referred By: CODY Confirmed By: MIRANDA FOSTER MD
--- NOTE | 2024-06-17 09:36 | EX.ED.DYSGE1 ---
HPI History of Present Illness Chief Complaint: General Illness Informant: patient Narrative Narrative: Presents by private vehicle symptom onset 2 hours ago. Woke up feeling fine, then started having myalgias from the knee up to his body, having chills. Chronic cough due to reported bronchitis. Denies tobacco history. No fevers. No sick contacts. States with her bathroom mild burning with urination. No penile discharge. No vomiting or diarrhea. No influenza vaccination this year. History of COVID in the past. No chest pain, no abdominal pain. No dyspnea. Prior similar symptoms: Yes PFSH PFS Medical History (Updated 06/17/24 @ 17:[address] Tomas Gomez DO) Kidney stones Non-smoker Pericardial defect DVT (deep venous thrombosis) Right peroneal nerve injury Right knee pain JULIÁN (obstructive sleep apnea) Chewing tobacco nicotine dependence COVID-19 Asthma Empyema of left pleural space Multiple pulmonary emboli Morbid obesity with BMI of 40.0-44.9, adult suspected hypercoagulable disorder Home Medications ?Medication ?Instructions ?Recorded ?Last Taken ?Type metformin 1,000 mg tablet 1,000 mg PO BID diabetes 01/08/24 06/16/24 History albuterol sulfate 90 mcg/actuation 2 puff inhalation 4X/DAY PRN 06/17/24 Unknown History aerosol inhaler shortness of breath or wheezing Allergy/AdvReac Type Severity Reaction Status Date / Time hydrocodone (From [place]) AdvReac Upset Verified 06/17/24 09:20 Stomach Family History Mother Diabetes Father Hypercoagulable state Surgical History S/P chest tube placement S/P pericardial window creation History of surgery on lower extremity Social History household members: spouse Smoking Status: Never smoker Smokeless tobacco user: chewing tobacco and other alcohol intake: never substance use type: does not use ROS ROS ED Constitutional Constitutional ED: Reports chills; Denies fever(s) or sweats ENT ENT ED: Denies sore throat Cardiovascular Cardiovascular: Denies chest pain, leg edema, palpitations or racing heartbeat Respiratory/Chest Respiratory/Chest: Reports cough; Denies dyspnea or dyspnea on exertion Gastrointestinal Gastrointestinal: Denies abdominal pain, diarrhea, nausea or vomiting Genitourinary Genitourinary ED: Reports dysuria; Denies hematuria or urinary frequency Musculoskeletal Musculoskeletal: Reports myalgias; Denies back pain, extremity pain or neck pain Integumentary Denies rash or wounds Neurologic Neurologic: Denies headache(s), paresthesias or weakness EXAM Physical Exam Const Vital Signs: 06/17/24 09:21 06/17/24 09:24 06/17/24 09:24 Temperature 98.2 F 98.2 F Temperature Source Oral Oral Pulse Rate 124 H 123 H Respiratory Rate 22 H 17 Respiratory Effort Blood Pressure 97/33 L 139/54 H 139/54 H Blood Pressure Mean 54 82 82 Pulse Ox 94 93 Oxygen Delivery Method Room Air Room Air 06/17/24 09:29 06/17/24 10:24 06/17/24 10:24 Temperature 100.5 F H Temperature Source Temporal Pulse Rate 127 H Respiratory Rate 20 H Respiratory Effort Short of Breath Blood Pressure 164/57 H 164/54 H Blood Pressure Mean 92 90 Pulse Ox 96 Oxygen Delivery Method Room Air 06/17/24 10:53 06/17/24 10:53 06/17/24 11:49 Temperature 100.3 F H 100.3 F H Temperature Source Oral Oral Pulse Rate 123 H 120 H Respiratory Rate 20 H 20 H Respiratory Effort Blood Pressure 157/95 H 157/95 H 135/66 H Blood Pressure Mean 115 115 89 Pulse Ox 96 96 Oxygen Delivery Method Room Air Room Air Positive well nourished and well developed General Appearance ED: well developed and NAD HEENT Reports moist mucous membranes normocephalic and atraumatic Eyes General Eye ED: Yes normal appearance of both eyes Neck full ROM Chest Wall Chest: Negative for tenderness Resp normal respiratory effort and normal air movement Effort and Inspection: symmetric chest movement; Negative for respiratory distress Cardio regular rhythm and no murmurs Rate: tachycardic Peripheral Pulses: pulses 2+ throughout GI normal to inspection, nondistended, normoactive bowel sounds and non-tender Palpation: Negative for guarding or rebound tenderness present Extremity normal to inspection Extremity Narrative: No calf tenderness bilaterally. Soft compartments. General Extremety ED: Negative for edema or tenderness General Extremity: Negative for edema Neuro oriented x3, CN's II-XII intact bilaterally and no sensory deficits noted Sensorium / Orientation: awake and alert Skin no rashes or lesions noted and no wounds MDM MDM MDM Narrative Medical decision making narrative: Interventions / MDM: Differential diagnosis: Complicated UTI, fever, leukocytosis Diagnosis considered but do not suspect: Pneumonia however chest x-ray negative. My EKG interpretation: N/A Imaging independently reviewed and interpreted by myself: 1 view chest x-ray: vascular congestion also read by radiology External documents reviewed: N/A Test considered but not ordered:N/A ED course: Patient tachycardic on arrival no recent vomiting or diarrhea. Afebrile. No dyspnea concerns for PE. Presenting with chills and myalgia with dysuria. Chronic cough. Will check EKG labs urine with STD screening. Will give IV fluids. Tylenol for myalgias. 1013: Reviewed patient's lab white count 23.3, neutrophils 21. Patient's tachycardia, meeting SIRS criteria. I will obtain lactic acid blood cultures. Urine had 25 leuks 1+ bacteria. I did send for urine culture as he reports dysuria. Will cover with Rocephin as he has leukocytosis. 1120: COVID, influenza, RSV negative. Chest X per radiology vascular congestion. No dyspnea. Lactic acid returned at 2.4. Blood pressure stable heart rate still in the 120s. Temperature I am at 100.3 on recheck. Patient reevaluation has no rash no abscesses no groin throat ear pain. He has chronic venous stasis right lower extremity from injury in the past, evaluation there is blanching right lower leg. Currently meeting sepsis criteria being treated for UTI. I will speak with hospitalist for admission. I spoke with hospitalist Dr. Miller, discussed patient's history and findings. No end organ damage noted, he did not feel patient meets sepsis criteria at this time. However will admit to the medical floor for continued management and monitoring. Re-evaluation: stable Disposition discussed with patient/family/significant other: Patient Case discussed with consulting clinician: Hospitalist This note was generated with [employer] dictation software. It may contain incorrect words, spelling, and punctuation that were not noted in checking the note before signing. Lab Data Attestation: I reviewed the patient's lab results. Labs: Laboratory Results - last 24 hr 06/17/24 06/17/24 06/17/24 09:45 09:58 10:20 WBC 23.3 H RBC 6.04 Hgb 16.4 Hct 51.6 MCV 85.4 MCH 27.2 MCHC 31.8 L RDW Std Deviation 43.4 RDW Coeff of Annalisa 13.9 Plt Count 359 MPV 9.4 Immature Gran % (Auto) 0.400 Neut % (Auto) 90.6 H Lymph % (Auto) 4.2 L [place] % (Auto) 4.2 Eos % (Auto) 0.3 Baso % (Auto) 0.3 Absolute Neuts (auto) 21.1 H Absolute Lymphs (auto) 0.98 Nucleated RBC % 0 Sodium 134 L Potassium 3.7 Chloride 102 Carbon Dioxide 28.0 Anion Gap 5 BUN 13 Creatinine 0.79 Estim Creat Clear Calc 207.09 Est GFR (MDRD) Af Amer 141 Est GFR (MDRD) Non-Af 117 BUN/Creatinine Ratio 16.4 Glucose 151 H Lactic Acid 2.4 H* Calcium 9.7 Total Bilirubin 0.60 Direct Bilirubin 0.21 AST 25 ALT 57 Alkaline Phosphatase 100 Total Protein 8.3 H Albumin 3.8 Globulin 4.5 H Urine Color Yellow Urine Clarity Clear Urine pH 5.0 Ur Specific [place] 1.020 Urine Protein 30 H Urine Glucose (UA) Normal Urine Ketones Negative Urine Occult Blood Negative Urine Nitrite Negative Urine Bilirubin Negative Urine Urobilinogen Normal Ur Leukocyte Esterase 25 H Urine RBC 0-5 SEEN Urine WBC 0-5 SEEN Ur Squamous Epith Cells 0-5 SEEN Urine Bacteria 1+ Urine Mucus 0 SEEN Chlamydia DNA (CHAZ) Cancelled N.gonorrhoeae DNA (CHAZ) Cancelled Radiography Diagnostic Testing: Clinical Impression(s) from Imaging Studies Chest X-Ray 06/17/24 10:05 IMPRESSION: Pulmonary venous congestion. Reading Location: [facility] Discharge Plan Dx/Rx/DC Orders Clinical Impression: Acute UTI, Fever, Sinus tachycardia, Complicated UTI (urinary tract infection) Disposition Disposition: Acute Care Hospital [facility] Discharge Date/Time: 06/17/24 12:32
[2024-06-17 09:55] LABS: Absolute Lymphocyte Count 0.98 X10^3/uL (0.83-4.51); Absolute Neutrophil Count 21.1 X10^3/uL (2.0-7.7); Basophil# 0.06 X10^3/uL; Basophil% 0.3 % (0-1); Eosinophil# 0.07 X10^3/uL; Eosinophils% 0.3 % (0-5); Hematocrit 51.6 % (40-54); Hemoglobin 16.4 g/dL (13.0-16.5); Lymphocyte # 0.98 X10^3/ul (0.83-4.51); Lymphocyte % 4.2 % (19-41); Mean Corp Hgb Conc 31.8 g/dL (32-36); Mean Corpuscular Hgb 27.2 pg (27.0-32.0); Mean Corpuscular Volume 85.4 fL (80-94); Mean Platelet Vol. 9.4 fl (6.2-12.0); Monocyte# 0.97 X10^3/uL; Monocyte% 4.2 % (0-10); NRBC Flagged by Analyzer 0 % (0-5); Neutrophil # 21.08 X10^3/uL (2.7-7.7); Neutrophil % 90.6 % (47-70); POSITIVE DIFFERENTIAL YES; Platelet Count 359 K/mm3 (150-450); RBC Distribution Width CV 13.9 % (11.6-14.6); RBC Distribution Width SD 43.4 fl (35.1-43.9); Red Blood Count 6.04 M/mm3 (4.6-6.2); White Blood Count 23.3 K/mm3 (4.4-11.0)
[2024-06-17 09:58] LABS: Differential Indicated SCAN CRITERIA MET
[2024-06-17] MEDS: 0.9% Normal Saline (1000mL) 1,000 ML 1000 ML IV (09:58)
[2024-06-17] MEDS: Acetaminophen 500 MG Tablet 1000 MG PO (09:58)
[2024-06-17 10:04] LABS: Color, Urine Yellow (Yellow); Glucose, Dipstick Normal (Normal); Ketone-Dipstick Negative (Negative); Leukocyte Esterase-Dipstick 25 /ul (Negative); Mucous, Urine 0 SEEN /hpf (<or=2+); Nitrite-Dipstick Negative (Negative); Occult Blood-Urine Negative /ul (Negative); Protein-Dipstick 30 mg/dl (Negative); Urine Bilirubin Dipstick Negative (Negative); Urine Clarity Clear (Clear); Urine Urobilinogen Normal (Normal)
--- NOTE | 2024-06-17 10:05 | RAD_ITS ---
EXAM: XR Chest, 1 View CLINICAL INDICATION: TECHNIQUE: Frontal view of the chest. COMPARISON: No relevant prior studies available. FINDINGS: LUNGS AND PLEURAL SPACES: Pulmonary venous congestion. No consolidation. No pneumothorax. HEART: Unremarkable. No cardiomegaly. MEDIASTINUM: Unremarkable. Normal mediastinal contour. BONES/JOINTS: Unremarkable. No acute fracture. RAD/Chest 1 View (Portable) IMPRESSION: Pulmonary venous congestion. Reading Location: [facility]
[2024-06-17 10:10] LABS: Bacteria 1+ /hpf (None Seen); Red Blood Cells-Urine 0-5 SEEN /hpf (0-5); Squamous Epithelial Cells - UA 0-5 SEEN /hpf (0-5); White Blood Cells 0-5 SEEN /hpf (0-5)
[2024-06-17 10:12] LABS: Anion Gap 5 (5-15); BUN 13 mg/dL (7-18); BUN/Creat Ratio 16.4 RATIO (10-20); Calcium,Total 9.7 mg/dL (8.5-10.1); Chloride 102 mmol/L (98-107); Creatinine, Serum 0.79 mg/dL (0.70-1.30); EST Glomerular Filtration Rate 117 mL/min (>60); Est Glom Filt Rate - Afr Amer 141 mL/min (>60); Estimated Creatinine Clearance 207.09 ml/min; Glucose 151 mg/dL (74-106); Potassium 3.7 mmol/L (3.5-5.1); Sodium Level 134 mmol/L (136-145)
[2024-06-17] MEDS: Ceftriaxone 1 GM/50 ML BAG IV ×2 (10:40→20:04)
[2024-06-17 11:04] LABS: Lactic Acid 2.4 mmol/L (0.4-1.9)
--- NOTE | 2024-06-17 11:04 | ED.RN ---
LAB CALLED LACTIC ACID OF 2.4. DR BROWNE
[2024-06-17 12:13] LABS: AST(SGOT) 25 U/L (15-37); Alanine Aminotransfer ALT/SGPT 57 U/L (16-61); Albumin, Serum 3.8 g/dL (3.2-5.0); Alkaline Phosphatase 100 U/L (45-117); Bilirubin, Direct 0.21 mg/dL (0.00-0.30); Globulin 4.5 g/dL (2.2-4.2); Protein, Total 8.3 g/dL (6.4-8.2)
[2024-06-17] MEDS: 0.9% Normal Saline (1000mL) 1,000 ML 150 ML IV ×2 (13:24→19:56)
[2024-06-17 14:24] LABS: Reflex Lactate? Y
[2024-06-17] MEDS: Ibuprofen 600 MG Tablet PO (16:53)
[2024-06-17 17:08] LABS: Bedside Glucose 126 mg/dL (74-106)
--- NOTE | 2024-06-17 19:28 | PCM.HP.STD ---
HPI - General General Date of Admission: 06/17/24 Date of Service: 06/17/24 Chief Complaint: Myalgias, fever, dysuria, chills HPI Narrative TOMAS DURHAM, is a 39 M who presents to the emergency room at [facility] with complaints of chills, myalgias, fever, and dysuria which started earlier this morning on the way to work. Patient states he has a history in the past of a blood infection, they were not able to ascertain where the infection originated from. Workup in the emergency room included a CBC which revealed an elevated white blood cell count of 23.3, chemistry profile was remarkable for a glucose of 151, sodium was 134, and lactic acid was 2.4. Patient was thought to have acute pyelonephritis, he was given IV antibiotics and he was admitted to [place] [address], IV fluids will be administered and IV antibiotics will be continued. Blood cultures were obtained and are pending. I do not feel the patient is septic. [facility] Medical History (Updated 06/17/24 @ 17:[address] Tomas Gomez DO) Kidney stones Non-smoker Pericardial defect DVT (deep venous thrombosis) Right peroneal nerve injury Right knee pain JULIÁN (obstructive sleep apnea) Chewing tobacco nicotine dependence COVID-19 Asthma Empyema of left pleural space Multiple pulmonary emboli Morbid obesity with BMI of 40.0-44.9, adult suspected hypercoagulable disorder Home Medications ?Medication ?Instructions ?Recorded ?Last Taken ?Type metformin 1,000 mg tablet 1,000 mg PO BID diabetes 01/08/24 06/16/24 History albuterol sulfate 90 mcg/actuation 2 puff inhalation 4X/DAY PRN 06/17/24 Unknown History aerosol inhaler shortness of breath or wheezing Allergy/AdvReac Type Severity Reaction Status Date / Time hydrocodone (From [place]) AdvReac Upset Verified 06/17/24 09:20 Stomach Family History Mother Diabetes Father Hypercoagulable state Surgical History S/P chest tube placement S/P pericardial window creation History of surgery on lower extremity Social History household members: spouse Smoking Status: Never smoker Smokeless tobacco user: chewing tobacco and other alcohol intake: never substance use type: does not use ROS Constitutional Constitutional: Reports chills and malaise; Denies anorexia, change in weight, fever(s), night sweats or weakness Eyes Eyes: Denies blurry vision, change in vision, discharge from eye(s) or eye pain Cardiovascular Cardiovascular: Denies chest pain, claudication, edema or palpitations Respiratory/Chest Respiratory/Chest: Denies cough, hemoptysis, shortness of breath at rest or shortness of breath with exertion Gastrointestinal Gastrointestinal: Denies abdominal pain, constipation, diarrhea, hematemesis, hematochezia, melena, nausea or vomiting Genitourinary Genitourinary: Reports burning urination and dysuria; Denies hematuria, urinary frequency, urinary hesitancy, urinary incontinence or urinary urgency Musculoskeletal Musculoskeletal: Denies back pain, joint pain, joint stiffness, joint swelling, myalgias or neck pain Neurologic Neurologic: Denies abnormal gait, abnormal speech, confusion, dizziness, focal weakness, headache(s), loss of vision, numbness, other visual disturbances, paresthesias, syncope or tingling Psychiatric Psychiatric: Denies anxiety, cognitive impairment, depression, irritability, mood swings or suicidal ideation Endocrine Endocrinology: Denies change in body appearance, cold intolerance, excessive sweating, heat intolerance, polydipsia or polyuria Hematologic/Lymphatic Hematologic/Lymphatic: Denies none, anemia, easy bleeding, easy bruising or lymphadenopathy Allergic/Immunologic Allergic/Immunologic: Denies rhinitis, urticaria, eczemia or asthma Vital Signs Vital Signs Vital Signs: 06/17/24 09:21 06/17/24 09:24 06/17/24 09:24 Temperature 98.2 F 98.2 F Temperature Source Oral Oral Pulse Rate 124 H 123 H Respiratory Rate 22 H 17 Respiratory Effort Respiratory Depth Respiratory Pattern Blood Pressure 97/33 L 139/54 H 139/54 H Blood Pressure Mean 54 82 82 Blood Pressure Source Blood Pressure Position Blood Pressure Location Pulse Ox 94 93 Oxygen Delivery Method Room Air Room Air 06/17/24 09:29 06/17/24 10:24 06/17/24 10:24 Temperature 100.5 F H Temperature Source Temporal Pulse Rate 127 H Respiratory Rate 20 H Respiratory Effort Short of Breath Respiratory Depth Respiratory Pattern Blood Pressure 164/57 H 164/54 H Blood Pressure Mean 92 90 Blood Pressure Source Blood Pressure Position Blood Pressure Location Pulse Ox 96 Oxygen Delivery Method Room Air 06/17/24 10:53 06/17/24 10:53 06/17/24 11:49 Temperature 100.3 F H 100.3 F H Temperature Source Oral Oral Pulse Rate 123 H 120 H Respiratory Rate 20 H 20 H Respiratory Effort Respiratory Depth Respiratory Pattern Blood Pressure 157/95 H 157/95 H 135/66 H Blood Pressure Mean 115 115 89 Blood Pressure Source Blood Pressure Position Blood Pressure Location Pulse Ox 96 96 Oxygen Delivery Method Room Air Room Air 06/17/24 12:00 06/17/24 12:00 06/17/24 12:03 Temperature 99.1 F 99.1 F Temperature Source Temporal Pulse Rate 119 H 119 H Respiratory Rate 20 H 20 H Respiratory Effort Respiratory Depth Respiratory Pattern Blood Pressure 135/66 H 135/66 H 135/66 H Blood Pressure Mean 89 89 89 Blood Pressure Source Blood Pressure Position Blood Pressure Location Pulse Ox 95 95 Oxygen Delivery Method Room Air 06/17/24 12:57 06/17/24 13:40 06/17/24 14:04 Temperature 99.8 F H 99.4 F H Temperature Source Oral Oral Pulse Rate 120 H 118 H Respiratory Rate 20 H 18 Respiratory Effort Normal Non-Labored Respiratory Depth Normal Respiratory Pattern Normal Blood Pressure 132/84 H 157/88 H Blood Pressure Mean 100 111 Blood Pressure Source Monitor Blood Pressure Position Semi-Fowlers Blood Pressure Location Right Forearm Pulse Ox 96 98 Oxygen Delivery Method Room Air Room Air Room Air 06/17/24 16:47 Temperature 99.9 F H Temperature Source Oral Pulse Rate 116 H Respiratory Rate 20 H Respiratory Effort Respiratory Depth Respiratory Pattern Blood Pressure 143/63 H Blood Pressure Mean 89 Blood Pressure Source Monitor Blood Pressure Position Sitting Blood Pressure Location Right Arm Pulse Ox 98 Oxygen Delivery Method Room Air Weight Weight: 172.2 kg Body Mass Index (BMI) 52.9 Physical Exam Const alert, oriented x3 and no apparent distress Constitutional Narrative: Patient has class III obesity General Appearance: cooperative, well kempt and well developed Orientation / Consciousness: awake, oriented to person, oriented to place and oriented to time HEENT normocephalic, head/scalp atraumatic, hearing grossly normal bilaterally and moist oral mucous membranes Eyes PERRL, EOMs intact bilaterally and conjunctivae normal Neck supple, no JVD, thyroid normal and no carotid bruits General: trachea midline Resp normal respiratory effort, no retractions, no use of accessory muscles and clear to auscultation bilaterally Auscultation: Negative for rales, rhonchi or wheezes Cardio regular rate, regular rhythm, S1 normal heart sound, S2 normal heart sound, no murmurs, no rub and no gallops GI normal to inspection, nondistended, normoactive bowel sounds, soft to palpation, non-tender and non-distended Extremity no clubbing, cyanosis or edema Skin no rashes or lesions noted General Skin Exam: no breakdown Neuro oriented x3, CN's II-XII intact bilaterally, moves all extremities, no focal motor deficits and no sensory deficits noted Sensorium / Orientation: awake and alert Speech: speech normal Psych affect normal Results Lab / Micro Data 06/17/24 09:45 06/17/24 09:45 Labs: Laboratory Results - last 24 hr 06/17/24 09:45: WBC 23.3 H, RBC 6.04, Hgb 16.4, Hct 51.6, MCV 85.4, MCH 27.2, MCHC 31.8 L, RDW Std Deviation 43.4, RDW Coeff of Annalisa 13.9, Plt Count 359, MPV 9.4, Immature Gran % (Auto) 0.400, Neut % (Auto) 90.6 H, Lymph % (Auto) 4.2 L, [place] % (Auto) 4.2, Eos % (Auto) 0.3, Baso % (Auto) 0.3, Absolute Neuts (auto) 21.1 H, Absolute Lymphs (auto) 0.98, Nucleated RBC % 0, Sodium 134 L, Potassium 3.7, Chloride 102, Carbon Dioxide 28.0, Anion Gap 5, BUN 13, Creatinine 0.79, Estim Creat Clear Calc 207.09, Est GFR (MDRD) Af Amer 141, Est GFR (MDRD) Non-Af 117, BUN/Creatinine Ratio 16.4, Glucose 151 H, Calcium 9.7, Total Bilirubin 0.60, Direct Bilirubin 0.21, AST 25, ALT 57, Alkaline Phosphatase 100, Total Protein 8.3 H, Albumin 3.8, Globulin 4.5 H 06/17/24 09:58: Urine Color Yellow, Urine Clarity Clear, Urine pH 5.0, Ur Specific [place] 1.020, Urine Protein 30 H, Urine Glucose (UA) Normal, Urine Ketones Negative, Urine Occult Blood Negative, Urine Nitrite Negative, Urine Bilirubin Negative, Urine Urobilinogen Normal, Ur Leukocyte Esterase 25 H, Urine RBC 0-5 SEEN, Urine WBC 0-5 SEEN, Ur Squamous Epith Cells 0-5 SEEN, Urine Bacteria 1+, Urine Mucus 0 SEEN, Chlamydia DNA (CHAZ) Cancelled, N.gonorrhoeae DNA (CHAZ) Cancelled 06/17/24 10:20: Lactic Acid 2.4 H* 06/17/24 15:40: Lactic Acid 2.0 06/17/24 16:40: POC Glucose 126 H Micro: Microbiology 06/17/24 09:58 Urine, Clean Catch Chlamydia/Neisseria (PCR) - Final 06/17/24 09:41 Mucosa - Nose SARS-CoV-2, Influenza & RSV (PCR) - Final Imaging Radiology Impression Chest X-Ray 06/17/24 10:05 IMPRESSION: Pulmonary venous congestion. Reading Location: [facility] Assessment & Plan Assessment/Plan (1) Complicated UTI (urinary tract infection): PLAN: Plan 1. Pyelonephritis-patient will be admitted to [facility] 3, he will be maintained on IV Rocephin and given some IV fluids. CBC will be rechecked tomorrow #2 type 2 diabetes-blood sugars will be monitored, sliding scale insulin will be given as necessary #3 class III obesity-complicates care, management, recovery, and prognosis Total clinical time spent by myself addressing the patient's medical issues, reviewing all of his data, and collaborating with patient's care team: 55-minute Charges/Coding Visit Charges Inpatient E&M: 07744 Init Hosp L2
[2024-06-17 23:11] LABS: Bedside Glucose 113 mg/dL (74-106)
[2024-06-18] MEDS: Ibuprofen 600 MG Tablet PO (02:51)
[2024-06-18 02:55] VITALS: BP 150/71; PULSE 100; RESP 16; TEMP 36.9; O2SAT 100
[2024-06-18 06:08] LABS: Absolute Lymphocyte Count 1.56 X10^3/uL (0.83-4.51); Absolute Neutrophil Count 17.8 X10^3/uL (2.0-7.7); Basophil# 0.09 X10^3/uL; Basophil% 0.4 % (0-1); Eosinophil# 0.04 X10^3/uL; Eosinophils% 0.2 % (0-5); Hematocrit 45.3 % (40-54); Hemoglobin 14.8 g/dL (13.0-16.5); Lymphocyte # 1.56 X10^3/ul (0.83-4.51); Lymphocyte % 7.5 % (19-41); Mean Corp Hgb Conc 32.7 g/dL (32-36); Mean Corpuscular Hgb 27.9 pg (27.0-32.0); Mean Corpuscular Volume 85.3 fL (80-94); Mean Platelet Vol. 9.9 fl (6.2-12.0); Monocyte% 5.3 % (0-10); NRBC Flagged by Analyzer 0 % (0-5); Neutrophil # 17.81 X10^3/uL (2.7-7.7); Neutrophil % 86.2 % (47-70); Platelet Count 307 K/mm3 (150-450); RBC Distribution Width CV 14.4 % (11.6-14.6); RBC Distribution Width SD 44.1 fl (35.1-43.9); Red Blood Count 5.31 M/mm3 (4.6-6.2); White Blood Count 20.7 K/mm3 (4.4-11.0)
[2024-06-18 06:45] LABS: Bedside Glucose 150 mg/dL (74-106)
--- NOTE | 2024-06-18 09:18 | CASEMGMT ---
TRANG FIGUEROA Assessment: Face to Face with pt for initial transition planning/care coordination assessment. RN HENRY introduced self and role at [facility], pt voices understanding and consents to assessment. Pt is A&O x4 and answers all questions appropriately at this time. Pt sitting up in chair in no distress. Care providers, pharmacy, and demographics verified/updated. Admitting Dx:pyelonephritis PCP:Melanie Specialists:denies Preferred Pharmacy:[facility] Insurance:[facility] Prescription Benefit: yes LNOK:Kathy Haines, sig other; Cheryl Rossi, mother Living Arrangements: Pt lives with sig other and 3 children in a mobile home with 4 steps to enter with a rail. Pt reports being I in ADL/IADLs and denies concerns at home. Transportation: Pt drives self and denies concerns with transportation. DME:Denies HHC/SNF:Pt has had HHC in the past but cannot recall name of the agency. Pt denies SNF stays. Pt states no concerns with going home at time of dc. Pt states no further concerns/needs. CM to follow. Advised pt to ask CM if any further question/concerns/needs arise, voices understanding. Pt Goal:Home Plan:Home
[2024-06-18] MEDS: Ceftriaxone 1 GM/50 ML BAG IV ×2 (10:48→21:03)
[2024-06-18 11:00] VITALS: BP 140/85; PULSE 88; RESP 18; TEMP 36.7; O2SAT 97
--- NOTE | 2024-06-18 11:19 | NURSING ---
This RN aware of Vital signs taken by Marycarmen, Student Nurse at the [facility].
[2024-06-18 12:23] LABS: Bedside Glucose 111 mg/dL (74-106)
[2024-06-18 15:35] VITALS: BP 137/79; PULSE 92; RESP 20; TEMP 36.9; O2SAT 97
--- NOTE | 2024-06-18 16:18 | NURSING ---
Aware of vital Signs taken by Marycarmen Napier Senior Mainframe Programmer Analyst from the [facility].
[2024-06-18] MEDS: Insulin Lispro 100 UNIT/ML INSULN.PEN SC (16:57)
--- NOTE | 2024-06-18 17:08 | PN.HOSP_ITS ---
Reason for Visit Reason for Visit: Diagnoses Urinary tract infection, site not specified (06/17/24) Subjective Subjective Patient was seen and examined today, his white blood cell count today was 20.7. Patient does feel better, urine culture is growing mixed organisms, blood culture is not resulted. Objective Data Objective Data Vital Signs: Vital Signs Temp Pulse Resp BP Pulse Ox O2 Del Method 98.5 F 92 20 H 137/79 H 97 Room Air 06/18/24 15:35 06/18/24 15:35 06/18/24 15:35 06/18/24 15:35 06/18/24 15:35 06/18/24 15:35 Oxygen Delivery Method Room Air Weight: 172.2 kg Body Mass Index (BMI) 52.9 Intake & Output: Intake and Output for Last 24 Hours 06/16/24 06/17/24 06/18/24 23:59 23:59 23:59 Intake Total 2099 1367.5 / 1367.5 Balance 2099 1367.5 / 1367.5 Lab / Micro Data 06/18/24 04:32 06/17/24 09:45 Labs: Laboratory Results - last 24 hr 06/17/24 16:40: POC Glucose 126 H 06/17/24 19:58: POC Glucose 113 H 06/18/24 04:32: WBC 20.7 H, RBC 5.31, Hgb 14.8, Hct 45.3, MCV 85.3, MCH 27.9, MCHC 32.7, RDW Std Deviation 44.1 H, RDW Coeff of Annalisa 14.4, Plt Count 307, MPV 9.9, Immature Gran % (Auto) 0.400, Neut % (Auto) 86.2 H, Lymph % (Auto) 7.5 L, [place] % (Auto) 5.3, Eos % (Auto) 0.2, Baso % (Auto) 0.4, Absolute Neuts (auto) 17.8 H, Absolute Lymphs (auto) 1.56, Nucleated RBC % 0 06/18/24 06:15: POC Glucose 150 H 06/18/24 11:52: POC Glucose 111 H Micro: Microbiology 06/17/24 09:58 Urine, Clean Catch Urine Culture - Preliminary Mixed Gram Positive Organisms 06/17/24 09:58 Urine, Clean Catch Chlamydia/Neisseria (PCR) - Final 06/17/24 09:41 Mucosa - Nose SARS-CoV-2, Influenza & RSV (PCR) - Final Physical Exam Narrative alert, oriented x3 and no apparent distress Constitutional Narrative: Patient has class III obesity General Appearance: cooperative, well kempt and well developed Orientation / Consciousness: awake, oriented to person, oriented to place and oriented to time HEENT normocephalic, head/scalp atraumatic, hearing grossly normal bilaterally and moist oral mucous membranes Eyes PERRL, EOMs intact bilaterally and conjunctivae normal Neck supple, no JVD, thyroid normal and no carotid bruits General: trachea midline Resp normal respiratory effort, no retractions, no use of accessory muscles and clear to auscultation bilaterally Auscultation: Negative for rales, rhonchi or wheezes Cardio regular rate, regular rhythm, S1 normal heart sound, S2 normal heart sound, no murmurs, no rub and no gallops GI normal to inspection, nondistended, normoactive bowel sounds, soft to palpation, non-tender and non-distended Extremity no clubbing, cyanosis or edema Skin no rashes or lesions noted General Skin Exam: no breakdown Neuro oriented x3, CN's II-XII intact bilaterally, moves all extremities, no focal motor deficits and no sensory deficits noted Sensorium / Orientation: awake and alert Speech: speech normal Psych affect normal Assessment & Plan Assessment/Plan (1) Complicated UTI (urinary tract infection): PLAN: Plan 1. Pyelonephritis-continue IV Rocephin and recheck CBC tomorrow, await blood culture results #2 type 2 diabetes-blood sugars will be monitored, sliding scale insulin will be given as necessary #3 class III obesity-complicates care, management, recovery, and prognosis Total clinical time spent by myself addressing the patient's medical issues, reviewing all of his data, and collaborating with patient's care team: 35-minute Charges/Coding Visit Charges Inpatient E&M: 75460 Subs Hosp L2
[2024-06-18 17:27] LABS: Bedside Glucose 173 mg/dL (74-106)
[2024-06-18 19:41] VITALS: BP 141/71; PULSE 99; RESP 16; TEMP 37.3; O2SAT 98
[2024-06-18 22:45] LABS: Bedside Glucose 147 mg/dL (74-106)
[2024-06-19 02:00] VITALS: BP 136/80; PULSE 93; RESP 18; TEMP 37.2; O2SAT 98
[2024-06-19 06:09] LABS: Absolute Lymphocyte Count 2.57 X10^3/uL (0.83-4.51); Absolute Neutrophil Count 7.7 X10^3/uL (2.0-7.7); Basophil# 0.07 X10^3/uL; Basophil% 0.6 % (0-1); Eosinophil# 0.26 X10^3/uL; Eosinophils% 2.2 % (0-5); Hematocrit 46.3 % (40-54); Lymphocyte # 2.57 X10^3/ul (0.83-4.51); Lymphocyte % 21.5 % (19-41); Mean Corp Hgb Conc 32.4 g/dL (32-36); Mean Corpuscular Hgb 27.6 pg (27.0-32.0); Mean Corpuscular Volume 85.3 fL (80-94); Mean Platelet Vol. 9.8 fl (6.2-12.0); Monocyte# 1.25 X10^3/uL; Monocyte% 10.5 % (0-10); NRBC Flagged by Analyzer 0 % (0-5); Neutrophil # 7.74 X10^3/uL (2.7-7.7); Neutrophil % 64.7 % (47-70); Platelet Count 307 K/mm3 (150-450); RBC Distribution Width CV 14.4 % (11.6-14.6); Red Blood Count 5.43 M/mm3 (4.6-6.2)
--- NOTE | 2024-06-19 09:53 | DCINST_ITS ---
Discharge Instructions Diet Discharge Diet: 1800 Calorie Control Diet DC O2, CPAP, BIPAP needs Home O2 Discharge instructions: No Dressing / Incision Discharge Activity: Return to Normal Activity Weight Bearing Status: Full weight bearing Follow Up Care Test Results: Test results from this visit will be discussed in further detail at your follow- up appointment, if applicable. Discharge Plan Admission Admit Date/Time: 06/17/24 11:51 Primary Reason for Your Visit: pyelonephritis Attending Provider: Drew iMller Primary Care Provider: Vickey Navarro Discharge Orders/Prescriptions Prescriptions: New cefdinir 300 mg capsule 300 mg PO BID Qty: 14 0RF Rx Instructions: start on 06/20/24 Continued metformin 1,000 mg tablet 1,000 mg PO BID albuterol sulfate 90 mcg/actuation HFA aerosol inhaler 2 puff INHALATION 4X/DAY PRN (Reason: shortness of breath or wheezing) Referrals / Follow Up: Vickey Navarro MD [Primary Care Provider] - Within 2 Weeks Disposition Disposition (needs filled in before D/C Order can be placed): Home, Self Care
--- NOTE | 2024-06-19 09:58 | PCM.DC.SUM ---
Providers Date of Admission: 06/17/24 Date of Discharge: 06/19/24 Primary Care Physician: Vickey Navarro MD Reason For Visit: PYELONEPHRITIS Diagnosis Discharge Diagnosis (1) Complicated UTI (urinary tract infection): Status: Acute Code(s): N39.0 - Urinary tract infection, site not specified Plan 1. Pyelonephritis- #2 type 2 diabetes-blood sugars will be monitored, sliding scale insulin will be given as necessary #3 class III obesity-complicates care, management, recovery, and prognosis #4 stasis dermatitis changes of the lower legs Total clinical time spent by myself addressing the patient's medical issues, reviewing all of his data, and collaborating with patient's care team: 35-minute Medications at Discharge Home Medications metformin 1,000 mg tablet 1,000 mg PO BID diabetes 01/08/24 albuterol sulfate 90 mcg/actuation aerosol inhaler 2 puff inhalation 4X/DAY PRN shortness of breath or wheezing 06/17/24 cefdinir 300 mg capsule 300 mg PO BID #14 caps 06/19/24 Hospital Course Operations None Procedures None Summary of Care Provided Minutes Spent on Discharge: 31 Hospital Course: This 39-year-old white male was seen in the emergency room at [facility] with complaints of generalized bodyaches, fever, chills, and dysuria. Workup in the emergency room included a CBC which showed an elevated white blood cell count chemistry was remarkable for glucose of 151 and lactic acid was 2.4. Urinalysis showed +1 bacteria and leukocyte Estrace of 25. Patient was felt to have pyelonephritis, he was given IV antibiotics and fluids and admitted to [place] [address]. Patient's urine culture grew out mixed organisms, blood culture showed no growth at 48 hours. Patient's white count improved during his hospitalization. On 06/19/2024, patient was seen and examined: On examination he appeared in good health and spirits. Vital signs as documented. Skin warm and dry and there was evidence of stasis dermatitis changes in the lower legs bilaterally. Neck without JVD, neck was supple, trachea midline, thyroid was normal. Lungs clear bilaterally, normal air movement was noted. Heart exam notable for regular rhythm, normal sounds and absence of murmurs, rubs or gallops. Abdomen unremarkable and without evidence of organomegaly, masses, or abdominal aortic enlargement. Bowel sounds are present, abdomen is not distended. Extremities nonedematous, no cyanosis was noted, no clubbing was noted. Neuro: Cranial nerves II through XII are grossly intact, no focal motor deficits were noted, sensation to light touch and pinprick intact, motor exam 5/5 throughout. Psych: Patient is alert and oriented x3, he does not appear anxious or depressed, he does not appear agitated. Patient was discharged to home on 06/19/2024 in stable condition Weight / BMI Weight Weight: 172.2 kg Body Mass Index (BMI) 52.9 ABG / Lab / Microbiology Data 06/19/24 05:18 06/17/24 09:45 Laboratory: Laboratory Results - last 24 hr 06/18/24 21:01: POC Glucose 147 H 06/19/24 05:18: WBC 12.0 H, RBC 5.43, Hgb 15.0, Hct 46.3, MCV 85.3, MCH 27.6, MCHC 32.4, RDW Std Deviation 44.0 H, RDW Coeff of Annalisa 14.4, Plt Count 307, MPV 9.8, Immature Gran % (Auto) 0.500, Neut % (Auto) 64.7, Lymph % (Auto) 21.5, [place] % (Auto) 10.5 H, Eos % (Auto) 2.2, Baso % (Auto) 0.6, Absolute Neuts (auto) 7.7, Absolute Lymphs (auto) 2.57, Nucleated RBC % 0 06/19/24 07:06: POC Glucose 109 H 06/19/24 11:09: POC Glucose 125 H Microbiology: Microbiology 06/17/24 10:40 Blood Culture (Wb) - Anticubital Left Blood Culture - Preliminary No growth in 48 hours. 06/17/24 10:20 Blood Culture (Wb) - Anticubital Left Blood Culture - Preliminary No growth in 48 hours. 06/17/24 09:58 Urine, Clean Catch Urine Culture - Final Mixed Gram Positive Organisms 06/17/24 09:58 Urine, Clean Catch Chlamydia/Neisseria (PCR) - Final 06/17/24 09:41 Mucosa - Nose SARS-CoV-2, Influenza & RSV (PCR) - Final D/C Instructions Discharge Diet: 1800 Calorie Control Diet Weight Bearing Status: Full weight bearing DC O2, CPAP, BIPAP Needs Home O2 Discharge instructions: No Meaningful Use Info Meaningful Use Meaningful Use Diagnoses (Choose all that apply): None applicable Ischemic Stroke Statin Dosing Therapy Reference: STATIN DOSE THERAPY REFERENCE: * Patients > 75 years receive moderate or high dose statin therapy. * Patients 75 years or YOUNGER should receive HIGH intensity statin dose unless contraindicated. You will be required to document reason for non-treatment if statin daily dose does not meet guidelines. HIGH DOSE STATIN THERAPY DAILY Atorvastatin > than or = to 40 mg Rosuvastatin > than or = to 20 mg Amlodipine + Atorvastatin > than or = to 2.5/40 mg Ezetimibe + Simvastatin 10/80 mg Simvastatin 80mg Discharge Plan Admission Admit Date/Time: 06/17/24 11:51 Primary Reason for Your Visit: tiffanieeltam Attending Provider: Drew Miller Primary Care Provider: Vickey Navarro Discharge Orders/Prescriptions Prescriptions: New cefdinir 300 mg capsule 300 mg PO BID Qty: 14 0RF Rx Instructions: start on 06/20/24 Continued metformin 1,000 mg tablet 1,000 mg PO BID albuterol sulfate 90 mcg/actuation HFA aerosol inhaler 2 puff INHALATION 4X/DAY PRN (Reason: shortness of breath or wheezing) Referrals / Follow Up: Vickey Navarro MD [Primary Care Provider] - Within 2 Weeks Disposition Disposition (needs filled in before D/C Order can be placed): Home, Self Care Charges/Coding Visit Charges Inpatient E&M: 78029 Disch Hosp >30min
[2024-06-19 11:03] VITALS: BP 140/92; PULSE 89; RESP 20; TEMP 36.3; O2SAT 97
[2024-06-19 11:32] LABS: Bedside Glucose 109 mg/dL (74-106)
[2024-06-19 11:32] LABS: Bedside Glucose 125 mg/dL (74-106)
== END 2024-06-19 12:30 | disposition home or self-care (01) | DRG 463 ==
LOC: ED 11:23 → MS3 06-18 09:09
PROVIDERS: Admitting Provider Internal Medicine; Emergency Provider Emergency Medicine; PCP Family Medicine; Visit Provider Internal Medicine
DX: N39.0 Urinary tract infection, site not specified (principal); Z68.43 Body mass index [BMI] 50.0-59.9, adult; E66.813 Obesity, class 3; E11.59 Type 2 diabetes mellitus with other circulatory complications; J45.909 Unspecified asthma, uncomplicated; F17.220 Nicotine dependence, chewing tobacco, uncomplicated; G47.33 Obstructive sleep apnea (adult) (pediatric); I87.2 Venous insufficiency (chronic) (peripheral); Z86.711 Personal history of pulmonary embolism; Z86.718 Personal history of other venous thrombosis and embolism; Z87.442 Personal history of urinary calculi; Z79.84 Long term (current) use of oral hypoglycemic drugs
CPT/HCPCS: 97802; 36415; 71045; 80048; 80076; 81001; 82962; 83605; 85025; 87040; 87086; 87088; 87491; 87591; 87631; 93005; 96361; 96365; 96366; 99221; 99285; 99406; A4216; G0378

== ENCOUNTER → 2024-08-02 | Outpatient (CLI) | payer MEDICAID, SELFPAY ==
--- NOTE | 2024-08-02 17:23 | RAD_ITS ---
PROCEDURE: CHEST PA AND LATERAL 08/02/2024 REASON FOR EXAM: COUGH TECHNIQUE: Frontal and lateral views of the chest. PA and lateral COMPARISON: 06/17/2024 FINDINGS: Mild vascular appearing congestion with possible mild interstitial edema, clinically correlate. Scarring or atelectasis left base and blunting of the left costophrenic angle again noted. Left-sided surgical clips again seen. Cardiac silhouette appears within limits for size. Right costophrenic angle is sharp. RAD/Chest PA and Lateral IMPRESSION: Question mild interstitial edema with appearance of mild vascular congestion, c linically correlate Chronic changes at the left base again seen. Reading Location: [id number]
== END | disposition home or self-care (01) ==
LOC: RAD 17:20
PROVIDERS: PCP Family Medicine; Referring Provider Family Medicine; Visit Provider Family Medicine
DX: R05.9 Cough, unspecified (principal)
CPT/HCPCS: 71046

== ENCOUNTER → 2024-11-23 | Outpatient (CLI) | payer MEDICAID, SELFPAY ==
--- NOTE | 2024-11-23 10:55 | VDLE_ITS ---
Reason For Study Reason For Study: Right leg pain RIGHT CFV is compressible, spontaneous, phasic, competent and demonstrates normal augmentation. FV is phasic and INCOMPETENT for greater than 1.0 second. FV is partially compressible throughout with bright intaluminal echoes consistent with Chronic DVT. POP V is compressible, spontaneous, phasic, competent and demonstrates normal augmentation. T/P Trunk is compressible. PTV is compressible. RT PerV is compressible. Acute superficial vein thrombosis is noted in the GSV from the knee to prox calf. It is NONCOMRPESSIBLE and dilated. Thrombus filled varicose veins noted throughout the prox-mid calf. Procedure This is a venous duplex using B-mode, color flow and spectral Doppler. Exam performed in department. A preliminary report was called and/or faxed to [facility]. VL/Venous Duplex US, Unilateral Interpretation Summary Acute superficial vein thrombosis noted in the right great saphenous vein below the knee and associated varicosities. Chronic deep vein thrombosis noted in the right femoral vein. Positive for reflux in the right femoral vein. Ordering Physician: Mimi Alfaro Referring Physician: Vickey Navarro Performed By: Angela Santoro RVT
== END | disposition home or self-care (01) ==
LOC: CVS 10:54
PROVIDERS: PCP Family Medicine; Referring Provider Physician Assistant; Visit Provider Physician Assistant
DX: I87.2 Venous insufficiency (chronic) (peripheral) (principal); Z86.718 Personal history of other venous thrombosis and embolism; M79.661 Pain in right lower leg
CPT/HCPCS: 93971

== ENCOUNTER → 2024-12-01 | Outpatient (CLI) | payer MEDICAID, SELFPAY ==
--- NOTE | 2024-12-01 12:51 | VDLE_ITS ---
Reason For Study Reason For Study: RLE Pain RIGHT LEFT CFV is compressible, phasic, and INCOMPETENT for CFV is compressible, spontaneous, phasic, competent, greater than 1.0 second. and demonstrates normal augmentation. FV is partially compressible throughout with bright intaluminal echoes consistent with Chronic DVT. POP V is partially compressible throughout with bright intaluminal echoes consistent with Chronic DVT. T/P Trunk is compressible. PTV is compressible. RT PerV is compressible. Acute superficial vein thrombosis is noted in the GSV from the proximal calf to mid thigh. It is NONCOMRPESSIBLE and dilated. Thrombus filled varicose veins noted throughout the prox-mid calf. Procedure This is a venous duplex using B-mode, color flow and spectral Doppler. Exam performed in department. The exam was diagnostic. The study was technically difficult. A preliminary report was called and/or faxed to [facility]. VL/Venous Duplex US, Unilateral Interpretation Summary Acute superficial vein thrombosis noted in the right great saphenous vein below the knee and associated varicosities. Chronic deep vein thrombosis noted in the right femoral, popliteal vein. Positive for reflux in the right femoral vein. Unchanged from prior study. Ordering Physician: Mimi Alfaro Referring Physician: Vickey Navarro Performed By: Jacek Evans RVT
== END | disposition home or self-care (01) ==
LOC: CVS 12:51
PROVIDERS: PCP Family Medicine; Referring Provider Physician Assistant; Visit Provider Physician Assistant
DX: I87.2 Venous insufficiency (chronic) (peripheral) (principal); M79.604 Pain in right leg; M79.89 Other specified soft tissue disorders; Z86.718 Personal history of other venous thrombosis and embolism
CPT/HCPCS: 93971